=== PATIENT | male | born 1945 | race Caucasian/White ===

== ENCOUNTER 2016-07-18 14:11 | Emergency (ER) | payer MEDICARE ==
[~2016-07-18] VITALS: Ht 170.2 cm; Wt 97.5 kg
[2016-07-18] MEDS ORDERED: LISI2.5T3 PO (14:26)
[2016-07-18] MEDS ORDERED: LEVO137T2 PO (14:26)
[2016-07-18] MEDS ORDERED: METF1000 PO (14:26)
[2016-07-18] MEDS ORDERED: PANT40TA2 PO (14:26)
[2016-07-18] MEDS ORDERED: VYTO10TA2 PO (14:26)
[2016-07-18] MEDS ORDERED: LANTINJ4 SC (14:26)
[2016-07-18] MEDS ORDERED: HUMA100I5 SC (14:26)
[2016-07-18] MEDS ORDERED: ADACEL/BOOSTRIX VACCINE (DIPHTH/PERTUSS/ACELL/TETANUS)0.5ML SYR (90715) IM ONE (16:00)
[2016-07-18] MEDS ORDERED: LIDOCAINE 2% MDV 20 ML VIAL SC ONE (16:00)
--- NOTE | 2016-07-18 16:34 | REP ---
Clinical: Trauma. Technique: AP, lateral, bilateral oblique views of the left fourth digit. Findings: Laceration and partial amputation of the tissues at the terminal tuft noted. No subcutaneous emphysema or radiodense foreign body. The osseous structures and joint spaces appear intact. Impression: Soft tissue injury. Osseous structures appear intact. Signed by Matti Alves MD 07/18/2016 04:23 P
[2016-07-18] MEDS ORDERED: KEFL500C7 PO (17:19)
[2016-07-18 17:24] VITALS: BP 115/57
== END 2016-07-18 17:35 | disposition home or self-care (01) ==
LOC: M ED 15:20
DX: S61.315A Laceration without foreign body of left ring finger with damage to nail, initial encounter (principal); S61.217A Laceration without foreign body of left little finger without damage to nail, initial encounter; X58.XXXA Exposure to other specified factors, initial encounter; Y92.9 Unspecified place or not applicable; Y93.9 Activity, unspecified; Y99.9 Unspecified external cause status; E11.9 Type 2 diabetes mellitus without complications; I10 Essential (primary) hypertension; Z87.891 Personal history of nicotine dependence; Z79.4 Long term (current) use of insulin; Z79.84 Long term (current) use of oral hypoglycemic drugs; Z79.899 Other long term (current) drug therapy

== ENCOUNTER → 2017-10-20 | Outpatient (CLI) | payer MEDICARE | LOC: M RAD 08:04 | DX: H92.22 Otorrhagia, left ear (principal) | CPT/HCPCS: 70480 ==

== ENCOUNTER 2017-10-23 06:10 | Day surgery (SDC) | payer MEDICARE ==
[2017-10-23] MEDS: LR 1,000 ML IV (06:56)
[2017-10-23] MEDS ORDERED: PROPOFOL 200 MG/20 ML VIAL As Ordered ×2 (07:14→07:17)
[2017-10-23] MEDS ORDERED: fentaNYL 100 MCG/2 ML INJECTION (J3010) As Ordered (07:15)
[2017-10-23] MEDS ORDERED: MIDAZOLAM INJ 2 MG/2 ML VIAL (J2250) As Ordered (07:15)
[2017-10-23 07:18] LABS: BEDSIDE GLUCOSE 132 MG/DL (83-110)
[2017-10-23] MEDS ORDERED: ONDANSETRON 4MG/2ML VIAL (J2405) As Ordered (08:03)
[2017-10-23] MEDS: LIDOCAINE W/EPINEPHRINE 1% 20ML VIAL As Ordered (08:15)
[2017-10-23] MEDS: dexameTHASONE 4 MG/ML 1ML VIAL (J1100) IV (08:33)
== END 2017-10-23 09:40 | disposition home or self-care (01) ==
LOC: M SDC 06:10
DX: C44.41 Basal cell carcinoma of skin of scalp and neck (principal); E78.00 Pure hypercholesterolemia, unspecified; I10 Essential (primary) hypertension; E03.9 Hypothyroidism, unspecified; E10.9 Type 1 diabetes mellitus without complications; K21.9 Gastro-esophageal reflux disease without esophagitis; Z87.891 Personal history of nicotine dependence; Z79.899 Other long term (current) drug therapy; Z79.4 Long term (current) use of insulin; Z79.84 Long term (current) use of oral hypoglycemic drugs; Z79.82 Long term (current) use of aspirin; Z96.1 Presence of intraocular lens; Z86.19 Personal history of other infectious and parasitic diseases
CPT/HCPCS: 11623

== ENCOUNTER → 2018-01-10 | Outpatient (CLI) | payer MEDICARE | LOC: M RAD 10:16 | DX: I65.23 Occlusion and stenosis of bilateral carotid arteries (principal) | CPT/HCPCS: 93880 ==

== ENCOUNTER 2018-02-02 05:54 | Emergency (ER) | payer MEDICARE ==
[2018-02-02 06:27] LABS: BASO % 0.7 % (0.0-1.0); EOS # 0.1 10^3/uL (0.0-0.50); EOS % 3.2 % (0.0-3.0); HEMATOCRIT 37.4 % (42.0-52.0); HEMOGLOBIN 11.5 g/dl (13.5-17.5); IMMATURE GRANULOCYTE % 0.4 % (0-3.0); LYMPH # 0.8 10^3/uL (1.5-4.5); LYMPH % 29.6 % (24.0-44.0); MEAN CORPUSCULAR HGB CONC 30.7 g/dl (32.0-36.5); MEAN CORPUSCULAR VOLUME 74.9 fl (80.0-96.0); MONO # 0.4 10^3/uL (0.0-0.8); MONO % 13.4 % (0.0-5.0); NEUTROPHILS # 1.5 10^3/uL (1.8-7.7); NEUTROPHILS % 52.7 % (36.0-66.0); RED BLOOD COUNT 4.99 10^6/uL (4.30-6.10); RED CELL DISTRIBUTION WIDTH 17.9 % (11.5-14.5); WHITE BLOOD COUNT 2.8 10^3/uL (4.0-10.0)
[2018-02-02 06:39] LABS: INR 1.24; PROTHROMBIN TIME 15.8 SECONDS (12.1-14.4)
[2018-02-02 06:40] LABS: PARTIAL THROMBOPLASTIN TIME 38.5 SECONDS (25.4-37.6)
[2018-02-02 06:51] LABS: PLATELET COUNT, AUTOMATED 72 10^3/uL (150-450)
[2018-02-02] MEDS: ASPIRIN 325 MG TAB PO (06:52)
[2018-02-02] MEDS: NITROGLYCERIN 2% OINT 1 GM *U/D* PKT TOP (06:53)
[2018-02-02 06:54] LABS: ABG BASE EXCESS -4.1 (-2.0-2.0); ABG HCO3 19.4 MEQ/L (22.0-26.0); ABG O2 SATURATION 96.8 % (95.0-99.0); ABG PARTIAL PRESSURE CO2 30.7 mmHg (35.0-45.0); ABG PARTIAL PRESSURE O2 87.5 mmHg (75.0-100.0); ABG TOTAL CO2 20.3 MEQ/L (23.0-31.0); ABG pH (ARTERIAL) 7.418 UNITS (7.350-7.450)
[2018-02-02 06:57] LABS: ANION GAP 11 MEQ/L (8-16); BLOOD UREA NITROGEN 15 MG/DL (7-18); CALCIUM LEVEL 8.7 MG/DL (8.8-10.2); CARBON DIOXIDE LEVEL 22 MEQ/L (21-32); CHLORIDE LEVEL 104 MEQ/L (98-107); CPK CREATINE PHOSPHOKINASE 365 U/L (39-308); CREATININE FOR GFR 1.09 MG/DL (0.70-1.30); GLOMERULAR FILTRATION RATE > 60.0 (>42); GLUCOSE, FASTING 273 MG/DL (70-100); MB/CK RELATIVE INDEX 2.82 (< OR =4); NT-PRO BNP 294 PG/ML (<125); SODIUM LEVEL 137 MEQ/L (136-145); TROPONIN I 0.76 NG/ML (< 0.10)
[2018-02-02] MEDS ORDERED: ISOVUE-370 76% 100ML VIAL (Q9967) As Ordered (07:25)
[2018-02-02 08:43] LABS: CPK CREATINE PHOSPHOKINASE 327 U/L (39-308); MB/CK RELATIVE INDEX 2.84 (< OR =4); TROPONIN I 0.68 NG/ML (< 0.10)
[2018-02-02] MEDS: CLOPIDOGREL 300 MG TAB (PLAVIX) PO (09:35)
[2018-02-02] MEDS: HEPARIN SOD (PORCINE) 5000 UNITS/ML VIAL IV (09:36)
[2018-02-02] MEDS: HEPARIN DRIP 25,000 UNITS in APPROPRIATE DILUENT 1 EA IV (09:38)
== END 2018-02-02 10:07 | disposition short-term general hospital (02) ==
LOC: M ED 05:54
DX: R06.02 Shortness of breath (principal); I24.9 Acute ischemic heart disease, unspecified; R59.9 Enlarged lymph nodes, unspecified; E11.9 Type 2 diabetes mellitus without complications; I10 Essential (primary) hypertension; K21.9 Gastro-esophageal reflux disease without esophagitis; E03.9 Hypothyroidism, unspecified; E66.9 Obesity, unspecified; Z87.891 Personal history of nicotine dependence; Z82.49 Family history of ischemic heart disease and other diseases of the circulatory system; Z79.82 Long term (current) use of aspirin; Z79.4 Long term (current) use of insulin; Z79.899 Other long term (current) drug therapy; Z88.8 Allergy status to other drugs, medicaments and biological substances
CPT/HCPCS: Q9967

== ENCOUNTER → 2018-03-11 | Outpatient (CLI) | payer MEDICARE ==
[~2018-03-11] MED LIST: ASPI1TAB PO; HUMA100I5 SC; KEFL500C17 PO; LANTINJ4 SC; LEVO137T2 PO; LISI2.5T5 PO; MAGN400C PO; METF10004 PO; PANT40TA3 PO; VITA100067 PO; VYTO10TA25 PO
--- NOTE | 2018-03-12 07:46 | REP ---
Duplex extremity venous ultrasound: Right lower extremity. History: Right leg swelling. Edema. Findings: The deep veins are anechoic and fully compressible from the groin to the popliteal fossa in the right lower extremity. Color flow imaging is homogeneous. Spectral Doppler interrogation demonstrates intact respiratory variation in flow and normal manual augmentation of flow. There is no evidence of deep vein thrombosis. Impression: Negative right lower extremity duplex venous ultrasound. No evidence of deep vein thrombosis. Electronically Signed by Chaz Howard MD 03/11/2018 03:39 P
== END ==
LOC: M RAD 14:56
PROVIDERS: ATTEND Nurse Practitioner
DX: M79.604 Pain in right leg (principal)

== ENCOUNTER → 2018-03-14 | Outpatient (REF) | payer MEDICARE ==
[~2018-03-14] MED LIST changes: +FOLI1TAB11 PO; +LASI20TA3 PO
[2018-03-14 15:48] LABS: BLOOD UREA NITROGEN 12 MG/DL (7-18); CALCIUM LEVEL 8.4 MG/DL (8.8-10.2); CARBON DIOXIDE LEVEL 27 MEQ/L (21-32); CHLORIDE LEVEL 105 MEQ/L (98-107); CREATININE FOR GFR 0.89 MG/DL (0.70-1.30); GLOMERULAR FILTRATION RATE > 60.0 (>42); GLUCOSE, FASTING 75 MG/DL (70-100); POTASSIUM SERUM 3.9 MEQ/L (3.5-5.1); SODIUM LEVEL 140 MEQ/L (136-145)
== END ==
LOC: M SHH 14:36
PROVIDERS: ATTEND Nurse Practitioner
DX: I25.10 Atherosclerotic heart disease of native coronary artery without angina pectoris (principal)

== ENCOUNTER 2018-04-10 14:49 | Inpatient (IN) | payer MEDICARE ==
[2018-04-10] VITALS (14 sets, daily range): BP systolic 87–108; BP diastolic 52–66
[~2018-04-10] VITALS: Ht 170.2 cm; Wt 102.8 kg
[~2018-04-10 14:49] MED LIST changes: -FOLI1TAB11 PO; -LASI20TA3 PO
[2018-04-10] MEDS ORDERED: ONDANSETRON 4MG/2ML VIAL (J2405) As Ordered ONE (15:00)
[2018-04-10] MEDS ORDERED: ACETAMINOPHEN 325 MG TAB PO ONE (15:15)
[2018-04-10] MEDS ORDERED: cefTRIAXone SOD 2 GM in D5W MINI-BAG PLUS 50 ML IV ONE (15:15)
[2018-04-10 15:20] LABS: BASO % 0.2 % (0.0-1.0); EOS # 0.1 10^3/uL (0.0-0.50); EOS % 0.8 % (0.0-3.0); HEMATOCRIT 42.5 % (42.0-52.0); LYMPH # 1.5 10^3/uL (1.5-4.5); LYMPH % 11.6 % (24.0-44.0); MEAN CORPUSCULAR HEMOGLOBIN 24.8 pg (27.0-33.0); MEAN CORPUSCULAR HGB CONC 30.6 g/dl (32.0-36.5); MEAN CORPUSCULAR VOLUME 81.1 fl (80.0-96.0); MONO # 0.5 10^3/uL (0.0-0.8); NEUTROPHILS # 11.1 10^3/uL (1.8-7.7); PLATELET COUNT, AUTOMATED 177 10^3/uL (150-450); RED BLOOD COUNT 5.24 10^6/uL (4.30-6.10); WHITE BLOOD COUNT 13.3 10^3/uL (4.0-10.0)
[2018-04-10] MEDS ORDERED: METOCLOPRAMIDE INJ 10MG/2ML VIAL (J2765) As Ordered ONE (15:27)
[2018-04-10] MEDS ORDERED: NS 2,860 ML in APPROPRIATE DILUENT 1 EA IV ONE (15:30)
[2018-04-10] MEDS ORDERED: METOCLOPRAMIDE INJ 10MG/2ML VIAL (J2765) IV ONE (15:30)
[2018-04-10 15:33] LABS: INR 1.23; PROTHROMBIN TIME 15.7 SECONDS (12.1-14.4)
[2018-04-10 15:56] LABS: ALBUMIN 3.5 GM/DL (3.2-5.2); ALT/SGPT 35 U/L (12-78); BILIRUBIN,DIRECT 0.7 MG/DL (0.0-0.2); BILIRUBIN,TOTAL 1.7 MG/DL (0.2-1.0); BLOOD UREA NITROGEN 14 MG/DL (7-18); CALCIUM LEVEL 9.2 MG/DL (8.8-10.2); CARBON DIOXIDE LEVEL 24 MEQ/L (21-32); CHLORIDE LEVEL 100 MEQ/L (98-107); CPK CREATINE PHOSPHOKINASE 102 U/L (39-308); CREATININE FOR GFR 1.23 MG/DL (0.70-1.30); GLOMERULAR FILTRATION RATE > 60.0 (>42); GLUCOSE, FASTING 181 MG/DL (70-100); LIPASE 214 U/L (73-393); MB/CK RELATIVE INDEX 3.14 (< OR =4); NT-PRO BNP 419 PG/ML (<125); POTASSIUM SERUM 3.9 MEQ/L (3.5-5.1); SODIUM LEVEL 138 MEQ/L (136-145); TOTAL PROTEIN 7.3 GM/DL (6.4-8.2); TROPONIN I 0.02 NG/ML (< 0.10)
[2018-04-10] MEDS ORDERED: ISOVUE-370 76% 100ML VIAL (Q9967) As Ordered ONE (16:15)
[2018-04-10 16:21] LABS: INFLUENZA A AMPLIFICATION NEGATIVE (NEGATIVE); INFLUENZA B AMPLIFICATION NEGATIVE (NEGATIVE)
[2018-04-10] MEDS ORDERED: ONDANSETRON 4MG/2ML VIAL (J2405) IV ONE (17:00)
--- NOTE | 2018-04-10 17:04 | REP ---
PORTABLE CHEST: AP portable view of the chest was performed and compared to prior studies most recent of which is 02/02/2018. Cardiac silhouette is mildly prominent. Mediastinal silhouette is unchanged. There are mildly prominent interstitial markings in the lung bases which are chronic in nature. There is mild chronic elevation of the left hemidiaphragm. IMPRESSION: Stable chronic findings without evidence of acute infiltrate. Electronically Signed by Garrett Salgado MD 04/10/2018 08:19 P
--- NOTE | 2018-04-10 17:18 | REP ---
CT of the abdomen and pelvis with IV contrast, without bowel contrast: Comparison 08/26/2010. The visualized lower lung maya are unremarkable. The hepatic parenchyma is unremarkable. The gallbladder is unremarkable. There is enhancing three-point 6 cm mass in the left lobe of the liver. This is not present on the chest CT performed in a prior to this abdomen CT, and is not present on the comparison study and is not present on the chest CT dated 02/02/2018. A followup ultrasound and / or MRI are recommended for further evaluation. The gallbladder, pancreas and spleen are unremarkable. There are numerous retrogastric mesenteric nodes, unchanged from 02/07/2019 but not present on 08/26/2010. There are a few scattered normal size mesenteric nodes, not significantly changed from 08/26/2010. There is no pneumoperitoneum. There is no ascites. The pancreas and spleen are unremarkable. The adrenals and kidneys are unremarkable. Abdominal aorta is unremarkable. There is no retroperitoneal adenopathy. There is no bowel distension or obstruction. Pelvis: The appendix is unremarkable. There is no ascites or adenopathy. The pelvic bowel loops are unremarkable. Impression: There is an enhancing 3.6 cm liver mass, not identified on the studies earlier today or prior studies. Recommend follow-up ultrasound and MRI. There is retrogastric adenopathy, unchanged from 04/05 2017. No pneumoperitoneum or ascites. Electronically Signed by Garrett Argueta MD 04/10/2018 05:09 P
[2018-04-10] MEDS ORDERED: NOREPINEPHRINE 4 MG/4 ML AMP As Ordered ONE (17:19)
--- NOTE | 2018-04-10 17:22 | ECGEPIP ---
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
[2018-04-10] MEDS ORDERED: NOREPINEPHRINE BITARTRATE 8 MG in D5W 492 ML IV SCH (17:30)
[2018-04-10] MEDS ORDERED: FOLI1TAB11 PO (18:26)
[2018-04-10] MEDS ORDERED: LASI20TA3 PO (18:26)
[2018-04-10 18:41] LABS: MB/CK RELATIVE INDEX 2.12 (< OR =4); TROPONIN I 0.06 NG/ML (< 0.10)
--- NOTE | 2018-04-10 18:43 | REP ---
PORTABLE CHEST: AP portable view of the chest was performed and compared to prior study of the same date. There has been placement of a right central venous catheter with the tip in the superior vena cava. There is no pneumothorax. There are no other acute findings with no change since prior study. Electronically Signed by Garrett Salgado MD 04/10/2018 08:21 P
[2018-04-10] MEDS ORDERED: ONDANSETRON 4 MG TAB (S0181) PO PRN (18:45)
[2018-04-10] MEDS ORDERED: ACETAMINOPHEN TAB 650MG DOSE (2X325MG) PO PRN (18:45)
[2018-04-10] MEDS ORDERED: VANCOMYCIN HCL 750 MG, VIAL MATE ADAPTER 1 EACH in D5W 250 ML IV SCH (19:45)
[2018-04-10] MEDS ORDERED: GLUCAGON FOR INJ 1 MG VIAL (J1610) SC PRN (20:00)
[2018-04-10] MEDS ORDERED: GLUCOSE 4 GM CHEW TABLET PO PRN (20:00)
[2018-04-10] MEDS ORDERED: PERCOCET 5MG/325MG TAB PO ONE (20:00)
[2018-04-10] MEDS ORDERED: DEXTROSE 50% 50 ML SYRINGE IV PRN (20:00)
[2018-04-10] MEDS: PIPERACILLIN/TAZOBACTAM SOD 3.375 GM in D5W MINI-BAG PLUS 50 ML IV SCH (20:08)
[2018-04-10 20:22] LABS: FREE T4 1.84 NG/DL (0.76-1.46)
--- NOTE | 2018-04-10 20:28 | PHACANCOPD ---
PHARMACY VANCOMYCIN DOSING Pt Demographics Demographics Patient Age:73 , Weight:96.500 , Gender: male Adjusted Body Weight Vancomycin Vancomycin indication: SEPSIS Vancomycin Target Ranges: 15-20 mcg/ml Vancomycin Load Y/N: Yes Load Dose Date Time Vancomycin Load Dose: 2GM Date: 04/10/18 Time: 21:00 Vancomycin Dose Date: 04/11/18. Current Vancomycin Dose: [1GM IV Q12H (6am start)] Intermittent Dosing?: No Labs Labs Laboratory Tests 04/10/18 15:04 Red Blood Count 5.24, Mean Corpuscular Volume 81.1, Mean Corpuscular Hemoglobin 24.8 L, Mean Corpuscular Hemoglobin Concent 30.6 L, Red Cell Distribution Width 18.3 H, Neutrophils (%) (Auto) 83.0 H, Lymphocytes (%) (Auto) 11.6 L, Monocytes (%) (Auto) 4.0, Eosinophils (%) (Auto) 0.8, Basophils (%) (Auto) 0.2, Neutrophils # (Auto) 11.1 H, Lymphocytes # (Auto) 1.5, Monocytes # (Auto) 0.5, Eosinophils # (Auto) 0.1, Basophils # (Auto) 0.0 Micro Microbiology 04/10/18 Blood Culture, Received Pending 04/10/18 Blood Culture, Received Pending 04/10/18 Respiratory Virus Panel (PCR) (KATHERIN) - Final, Complete Creatinine Clearance Date:04/10/18. Creatinine Clearance: [ >50 ml/min]. Assessment and Plan Maintaining Current Dose?: Yes Reason for dose change: No Dose Change Pharmacist Note Pharmacist Note Date: 04/10/18. PharmD note: VANCO 2GM LOAD AT 21:00; followed by VANCO 1GM IV Q12H (06:00 04/11/18). GOAL 15-20 PER ATTENDING SERVICE. MORIS TR WHEN [facility] Apr 10, 2018 20:27
[2018-04-10] MEDS ORDERED: NS 1,000 ML IV ONE (20:30)
[2018-04-10] MEDS ORDERED: MAG SULF 1GM/100ML (MAG RUN) 1 GM in APPROPRIATE DILUENT 1 EA IV ONE (20:30)
[2018-04-10] MEDS ORDERED: VANCOMYCIN HCL 1,000 MG, VIAL MATE ADAPTER 1 EACH in D5W 250 ML IV ONE ×2 (21:00→22:00)
[2018-04-10] MEDS ORDERED: HumaLOG INSULIN (NovoLOG) PER UNIT SC SCH (21:00)
--- NOTE | 2018-04-10 22:23 | RO ---
DATE OF PROCEDURE: 04/10/2018 PREPROCEDURE DIAGNOSIS: Hypotension. POSTPROCEDURE DIAGNOSIS: Hypotension. PROCEDURE PERFORMED: Right IJ triple lumen central line. PHYSICIAN PERFORMING PROCEDURE: Huma Ramirez MD ENGRAVER HAND SOFT METALS: Areli Feliciano MD SEDATION: None. ANESTHETIC: 1% local lidocaine. VENTILATION: 2% nasal cannula. ESTIMATED BLOOD LOSS: 10 mL DESCRIPTION OF PROCEDURE: Consent was obtained. Risks and benefits explained. Time out was done. Patient was placed in the supine position. The right side of the patient's neck was cleaned with Chloraprep. Patient was covered in the usual manner. Ultrasound probe with sterile probe cover was used. Patient's right internal jugular was located and subsequently 1% local lidocaine was injected with ultrasound guidance and subsequently introducer needle was inserted with ultrasound guidance and flash of blood return was obtained. Guidewire was inserted through the introducer needle. Introducer needle was removed. Guidewire position was confirmed with ultrasound. Subsequently site was dilated and triple lumen central line was inserted over guidewire via Seldinger technique. Guidewire was removed. All three ports of the triple lumen central line was flushed and clamped and line was secured with stitches. Dressing was placed. Patient tolerated the procedure with no complication. X-ray was ordered for confirmation.
[2018-04-10 23:28] LABS: MAGNESIUM LEVEL 1.5 MG/DL (1.8-2.4)
[2018-04-10] MEDS ORDERED: MORPHINE 4 MG/ML 1ML VIAL/SYRINGE (J2270) IV PRN (23:30)
[2018-04-11] VITALS (113 sets, daily range): BP systolic 79–154; BP diastolic 43–83
[2018-04-11] MEDS: NOREPINEPHRINE BITARTRATE 8 MG in D5W 492 ML IV SCH ×3 (00:01→15:00)
[2018-04-11] MEDS ORDERED: NS 1,000 ML IV SCH ×2 (00:30→03:15)
[2018-04-11] MEDS ORDERED: METOCLOPRAMIDE INJ 10MG/2ML VIAL (J2765) IV PRN (01:00)
[2018-04-11 01:52] LABS: MB/CK RELATIVE INDEX 2.33 (< OR =4); TROPONIN I 0.56 NG/ML (< 0.10)
[2018-04-11] MEDS ORDERED: NS 1,000 ML IV ONE (02:00)
[2018-04-11] MEDS: PIPERACILLIN/TAZOBACTAM SOD 3.375 GM in D5W MINI-BAG PLUS 50 ML IV SCH ×4 (02:00→19:55)
[2018-04-11] MEDS ORDERED: NITROGLYCERIN 0.3 MG SUBL TAB SL STA (02:13)
[2018-04-11] MEDS ORDERED: NITROGLYCERIN 0.4 MG SUBL TABLET SL STA (02:19)
[2018-04-11] MEDS ORDERED: METOPROLOL 5 MG/5 ML VIAL IV SCH (02:30)
[2018-04-11] MEDS ORDERED: MORPHINE 4 MG/ML 1ML VIAL/SYRINGE (J2270) IV ONE (02:30)
[2018-04-11] MEDS ORDERED: LABETALOL HCL 100 MG/20 ML VIAL As Ordered ONE (02:31)
[2018-04-11] MEDS ORDERED: METOPROLOL 5 MG/5 ML VIAL As Ordered ONE (02:35)
[2018-04-11] MEDS ORDERED: FUROSEMIDE 40 MG/4 ML VIAL (J1940) IV ONE (02:45)
[2018-04-11] MEDS ORDERED: ASPIRIN 81 MG CHEW TABLET PO ONE (02:45)
[2018-04-11] MEDS ORDERED: NITROGLYCERIN 0.4 MG SUBL TABLET SL PRN (03:00)
--- NOTE | 2018-04-11 03:39 | REPVR ---
EXAM: XR Chest, 1 View EXAM DATE/TIME: 04/11/2018 2:26 AM CLINICAL HISTORY: 73 years old, male; Signs and symptoms; Shortness of breath; Additional info: SOB TECHNIQUE: XR of the chest, 1 view. COMPARISON: CR Chest, 1 view 04/10/2018 5:57 PM FINDINGS: Tubes, catheters and devices: Right IJ line is terminating in the distal SVC in good position. Lungs: Low lung volumes. Pleural space: Unremarkable. No pleural effusion. No pneumothorax. Heart/Mediastinum: Cardiomegaly. Bones/joints: Degenerative changes. IMPRESSION: No acute finding. Electronically signed by: Fany Juarez On 04/11/2018 03:38:57 AM
[2018-04-11 03:55] LABS: ABG BASE EXCESS -22.3 (-2.0-2.0); ABG HCO3 4.1 MEQ/L (22.0-26.0); ABG O2 SATURATION 98.4 % (95.0-99.0); ABG PARTIAL PRESSURE O2 138.3 mmHg (75.0-100.0); ABG STANDARD HCO3 8.9 MEQ/L (22.0-26.0); ABG TOTAL CO2 4.4 MEQ/L (23.0-31.0); ABG pH (ARTERIAL) 7.148 UNITS (7.350-7.450)
[2018-04-11] MEDS ORDERED: SODIUM BICARBONATE 8.4% INJ 50 ML SYRINGE IV STA ×2 (04:06→08:08)
[2018-04-11] MEDS ORDERED: SODIUM BICARBONATE 150 MEQ in NS 1,000 ML IV SCH (04:15)
[2018-04-11 04:36] LABS: HEMATOCRIT 47.3 % (42.0-52.0); HEMOGLOBIN 13.8 g/dl (13.5-17.5); MEAN CORPUSCULAR HEMOGLOBIN 24.6 pg (27.0-33.0); MEAN CORPUSCULAR HGB CONC 29.2 g/dl (32.0-36.5); MEAN CORPUSCULAR VOLUME 84.3 fl (80.0-96.0); PLATELET COUNT, AUTOMATED 175 10^3/uL (150-450); RED BLOOD COUNT 5.61 10^6/uL (4.30-6.10)
[2018-04-11] MEDS ORDERED: MORPHINE 4 MG/ML 1ML VIAL/SYRINGE (J2270) IV PRN (04:45)
[2018-04-11 05:02] LABS: ALBUMIN 2.9 GM/DL (3.2-5.2); ALT/SGPT 259 U/L (12-78); BILIRUBIN,DIRECT 1.9 MG/DL (0.0-0.2); BILIRUBIN,TOTAL 2.7 MG/DL (0.2-1.0); BLOOD UREA NITROGEN 21 MG/DL (7-18); CALCIUM LEVEL 7.7 MG/DL (8.8-10.2); CARBON DIOXIDE LEVEL 9 MEQ/L (21-32); CHLORIDE LEVEL 100 MEQ/L (98-107); CREATININE FOR GFR 2.01 MG/DL (0.70-1.30); GLUCOSE, FASTING 188 MG/DL (70-100); POTASSIUM RANDOM URINE 71.4 MEQ/L; POTASSIUM SERUM 5.7 MEQ/L (3.5-5.1); SODIUM LEVEL 134 MEQ/L (136-145); TOTAL PROTEIN 6.2 GM/DL (6.4-8.2); WHITE BLOOD COUNT 36.6 10^3/uL (4.0-10.0)
[2018-04-11] MEDS ORDERED: ANGIOTENSIN II ACETATE 2.5 MG in NS 499 ML IV SCH (05:30)
--- NOTE | 2018-04-11 05:51 | ECGEPIP ---
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
[2018-04-11] MEDS ORDERED: VANCOMYCIN HCL 1,000 MG, VIAL MATE ADAPTER 1 EACH in D5W 250 ML IV SCH ×2 (06:00→18:00)
[2018-04-11] MEDS: LEVOTHYROXINE 137MCG TABLET (0.137MG) PO SCH (06:00)
[2018-04-11] MEDS ORDERED: ETOMIDATE INJ 20MG/10ML VIAL As Ordered ONE (06:15)
[2018-04-11] MEDS ORDERED: SODIUM BICARBONATE 8.4% INJ 50 ML SYRINGE As Ordered ONE (06:15)
[2018-04-11] MEDS ORDERED: MIDAZOLAM INJ 2 MG/2 ML VIAL (J2250) As Ordered ONE (06:20)
[2018-04-11] MEDS ORDERED: PROPOFOL 1,000 MG/100 ML VIAL As Ordered ONE (06:39)
[2018-04-11 06:56] LABS: ALBUMIN 2.8 GM/DL (3.2-5.2); BILIRUBIN,TOTAL 2.5 MG/DL (0.2-1.0); CALCIUM LEVEL 8.1 MG/DL (8.8-10.2); CREATININE FOR GFR 2.1 MG/DL (0.70-1.30); GLOMERULAR FILTRATION RATE 33.3 (>42); MB/CK RELATIVE INDEX 2.36 (< OR =4); TOTAL PROTEIN 6.2 GM/DL (6.4-8.2); TROPONIN I 1.22 NG/ML (< 0.10)
--- NOTE | 2018-04-11 07:23 | REP ---
CT of the chest with IV contrast, CT pulmonary angiography protocol: Comparison is 02/02/2018. There are no emboli in the pulmonary trunk or central pulmonary arteries. There are no emboli in the pulmonary lobe or segment branches. There are no infiltrates or effusions. There are no masses or nodules. There is no mediastinal adenopathy. There are a few normal-size nodes. There is no hilar lymph node enlargement. No axillary lymph node enlargement. The thoracic aorta is unremarkable. Cardiac size is normal. Upper abdomen: There are numerous retrogastric lymph nodes, similar to the prior study. Impression: No pulmonary emboli. No infiltrate or effusion. No masses or nodules. Multiple mesenteric retrogastric nodes in the upper abdomen, similar to the comparison study. Electronically Signed by Garrett Argueta MD 04/10/2018 04:48 P
[2018-04-11] MEDS ORDERED: HumaLOG INSULIN (NovoLOG) PER UNIT SC SCH (07:30)
[2018-04-11] MEDS ORDERED: HEPARIN 1,000 UNITS/ML 10ML VIAL (FOR RADIOLOGY& DIALYSIS ONLY) IV ONE (07:30)
[2018-04-11] MEDS: SODIUM BICARBONATE 150 MEQ in D5W 1,000 ML IV SCH ×2 (07:58→14:53)
[2018-04-11] MEDS ORDERED: MIDAZOLAM INJ 2 MG/2 ML VIAL (J2250) IV STA (08:08)
[2018-04-11] MEDS ORDERED: ETOMIDATE INJ 20MG/10ML VIAL IV ONE (08:15)
--- NOTE | 2018-04-11 08:21 | IPN ---
DATE OF SERVICE: 04/11/2018 SUBJECTIVE: I was called urgently to the intensive care unit (ICU) to the bedside with Mr. Collado who was having shortness of breath after using the commode. He says he felt like he could not catch his breath and he had pain in his back between the shoulder blades bilaterally. He was a little tachypneic and tachycardiac as well and he was starting to feel dizzy as well. He does not have any nausea, vomiting, diarrhea. He is not feeling any fevers or chills. He states that his shortness of breath does not feel like chest pain, he does not have any palpitations or pressing chest pressure. He does have a sharp pain between his shoulder blades in his back. Apparently he was admitted for sepsis, source unknown. He is on Levophed and came up to the unit on 30 mcg. He is now on 15 mcg, being titrated up to 20 mcg. OBJECTIVE: Vitals: Heart rate 119, 96% on room air. Blood pressure 88/61 with a map of 65. General: Elderly male in moderate distress. Lungs: Clear to auscultation bilaterally. No wheezes, rhonchi or rales. Heart: Tachycardiac rate but with irregular rhythm. I do not appreciate any murmurs, gallops or rubs. Pulses: Good peripheral pulses bilaterally. Extremities: No clubbing, cyanosis or edema is noted. LABORATORY DATA: Lactic acid at 0115 hours was 12.2, repeat at 0204 hours was 13.5. Cardiac markers: Troponin at 0115 hours was 0.56 up from 0.06 at 1756 hours yesterday. CK-MB 6.0, up from 2.0 yesterday at 1756 hours. EKG done at bedside showed sinus tachycardia at about 120 beats per minute with a left axis deviation. This is similar to EKG done yesterday in the ER, no ST elevation is noted, all wave forms and all leads look similar to yesterday's EKG. IMAGING STUDIES: Portable chest x-ray done at bedside was compared to patient's portable chest from yesterday. The airway is straight without deviation. Bony structures appear to be intact. Cardiac silhouette looks mildly enlarged, however, the patient also does have poor inspiratory effort. The diaphragmatic angles are clear. There is a central line in place that is unchanged from 04/10/2018. EKG leads are in place. Pulmonary vasculature looks similar to an x-ray of 04/10/2018. ASSESSMENT: 73-year-old male in acute mild distress with shortness of breath. He was admitted with hypotension and sepsis secondary to an unknown cause. He was feeling dizzy and had pain in his back. 1. Shortness of breath and dizziness. Possibly from hypertension. There is no changes on EKG and troponins are only mildly elevated. I have ordered another cardiac injury panel so we can trend. With the patient's most recent cardiac history, a double bypass and heart attack in the beginning of January, I did administer nitroglycerine, oxygen, morphine and aspirin 324 mg once. Portable chest x-ray looked similar to the one taken yesterday. Electrocardiogram did not show any changes. I am ordering an echocardiogram for the morning. 2. Lactic acidosis. This could be from multiple things. Apparently the patient was recently diagnosed with liver cancer, so that would impair lactate clearance. He also is on metformin at home, and received a CT angio with contrast today, which can cause lactic acidosis. His creatinine yesterday in the ER was 1.23, so I would expect that he would have an increased creatinine in this morning's labs. I will be doing an ABG to check his acid/base status. He may need a nephrology consult for acute renal failure, probably contrast-induced nephropathy, and possible ATN. After intervention, patient seems a bit more comfortable. He has had decreased work of breathing and is no longer complaining of 10 out of 10 pain in his back. However his ABG showed significant acidosis, with a pCO2 of 12 and a bicarb of 4, so I consulted Dr. Childs of Critical Care Pulmonology and Dr. Elyse Smith of nephrology. My faculty preceptor for this patient encounter was physically present during the encounter and was fully available. All aspects of the patient interview, examination, medical decision making process, and medical care plan development were reviewed and approved by the faculty preceptor. The faculty preceptor is aware and concurs with the plan as stated in the body of this note and will attest to such by his/her cosignature. PAULINO
[2018-04-11 08:44] LABS: VANCOMYCIN RANDOM 20.5 UG/ML
[2018-04-11 08:44] LABS: ABG HCO3 5.9 MEQ/L (22.0-26.0); ABG O2 SATURATION 98.7 % (95.0-99.0); ABG PARTIAL PRESSURE O2 146.9 mmHg (75.0-100.0); ABG STANDARD HCO3 9.7 MEQ/L (22.0-26.0); ABG TOTAL CO2 6.4 MEQ/L (23.0-31.0)
[2018-04-11 08:47] LABS: ABG PARTIAL PRESSURE CO2 17.7 mmHg (35.0-45.0); ABG pH (ARTERIAL) 7.138 UNITS (7.350-7.450)
--- NOTE | 2018-04-11 08:50 | REP ---
Portable chest, a 18 a.m., single AP view, the patient semi upright: Comparison is from 02:23 a.m. earlier today. The patient is rotated. There has been interval placement of an endotracheal tube. The tip is at the level of the aortic arch above the roselyn. There has been interval placement of a nasogastric tube. The tube terminates in the abdominal left upper quadrant. There is a right IJ central venous catheter with the tip at the confluence of the vena cava and right atrium, unchanged. No pneumothorax. Lung maya are clear. Cardiac size is enlarged, unchanged. Impression: Lines and tubes as described. Cardiomegaly, unchanged. Lung maya are clear. Electronically Signed by Garrett Argueta MD 04/11/2018 08:41 A
[2018-04-11] MEDS ORDERED: ENOXAPARIN 40 MG/0.4 ML SYRINGE (J1650) SC SCH (09:00)
[2018-04-11] MEDS ORDERED: PANTOPRAZOLE 40MG TAB (PROTONIX) PO SCH (09:00)
[2018-04-11] MEDS: CHLORHEXIDINE GLUCONATE 0.12 % 15ML UDC (PERIDEX ORAL RINSE) MT SCH ×2 (09:00→21:00)
[2018-04-11] MEDS: HumaLOG INSULIN (NovoLOG) PER UNIT SC SCH ×4 (09:00→21:00)
[2018-04-11] MEDS: ASPIRIN 81 MG ENTERIC TAB PO SCH (09:00)
--- NOTE | 2018-04-11 09:14 | RO ---
DATE OF PROCEDURE: 04/11/2018 PREOPERATIVE DIAGNOSIS: Septic shock. POSTOPERATIVE DIAGNOSIS: Septic shock. PROCEDURE: Endotracheal intubation. SURGEON: Dr. Sobia Childs INDICATION: Respiratory distress. Due to the emergent nature of the procedure, consent was not obtained prior to the procedure, however, the patient was informed about intubation and he was agreeable to proceed with the procedure. DESCRIPTION OF PROCEDURE: The patient was placed on a awake overnight monitor including continuous pulse oximetry. Rapid sequence intubation was conducted. The patient received 20 mg of etomidate for induction and an additional 4 mg of Versed as well for sedation. Using a size 4 MAC laryngoscope and a size 8 endotracheal tube with stylet, the patient was intubated on the first pass attempt. The stylet was removed and the cuffed balloon was inflated. Appropriate endotracheal tube position was confirmed by direct visualization of vocal cord passage, fogging of the tube, CO2 carbometric indicator and symmetric breath sounds. The tube was secured at 24 cm at the lips. Post intubation chest x-ray is pending. There were no immediate complications post procedure. PAULINO
[2018-04-11] MEDS ORDERED: SODIUM CHLORIDE 0.9% INJ 10 ML SYR IV PRN (09:30)
--- NOTE | 2018-04-11 09:43 | RO ---
DATE OF PROCEDURE: 04/11/2018 INDICATION: Hypotension. PROCEDURE: Femoral arterial line. PROCEDURAL FEE CLERK: Torres Sarmiento, PGY-1 ATTENDING PHYSICIAN: Dr. Sobia Childs was in attendance. CONSENT: Consent was obtained from Marshall Collado prior to the procedure. Indications, risks and benefits were explained at length. PROCEDURE SUMMARY: A time out was performed. My hands were washed immediately prior to the procedure. I wore a surgical cap and mask with protective eye wear, sterile gown and sterile gloves throughout the procedure. The right inguinal region was prepped using chlorhexidine to scrub and drape in a sterile fashion using a 3/4 sheet drape. The femoral artery was identified using an ultrasound probe. Using the ultrasound probe, the introducer needle was inserted into the femoral artery. Arterial blood was withdrawn. The syringe was removed and a guide wire was advanced through the needle to the femoral artery. The needle was exchanged over the wire for an arterial catheter. The wire was removed and the catheter was secured to the skin using a suture. The patient was intubated and sedated throughout the entirety of the procedure and was on pressors. There was no hemodynamic compromise. At the time of the procedural completion, the catheter was connected to the hospital monitor and calibrated. Appropriate waveform and blood pressure tracing was observed. Estimated blood loss was 1-2 mL. The line site was cleaned and covered in impregnated chlorhexidine dressing. PAULINO
[2018-04-11 09:58] LABS: IONIZED CALCIUM 3.8 MG/DL (4.5-5.3)
[2018-04-11 10:21] LABS: LYMPHOCYTES 7 % (16-52); MONOCYTES 1 % (0-8); NEUTROPHILS 85 % (35-75)
[2018-04-11 10:22] LABS: INR 2.09; PROTHROMBIN TIME 23.9 SECONDS (12.1-14.4)
[2018-04-11 10:23] LABS: CRENATED RBC 2+; PLATELET ESTIMATE NORMAL (NORMAL)
[2018-04-11 10:23] LABS: PARTIAL THROMBOPLASTIN TIME 45.5 SECONDS (25.4-37.6)
[2018-04-11 10:24] LABS: OVALOCYTES 1+
--- NOTE | 2018-04-11 10:29 | PHACANCOPD ---
PHARMACY VANCOMYCIN DOSING Pt Demographics Demographics Patient Age:73 , Weight:96.500 , Gender: male Adjusted Body Weight Vancomycin Vancomycin indication: SEPSIS Vancomycin Target Ranges: 15-20 mcg/ml Vancomycin Load Y/N: Yes Load Dose Date Time Vancomycin Load Dose: 2GM Date: 04/10/18 Time: 21:00 Vancomycin Dose Date: 04/11/18. Current Vancomycin Dose: [1GM IV Q12H (6am start)] Intermittent Dosing?: No Labs Micro Microbiology 04/10/18 Blood Culture - Preliminary, Resulted 04/10/18 Blood Culture - Preliminary, Resulted 04/11/18 MRSA Screen, Received Pending 04/10/18 Respiratory Virus Panel (PCR) (KATHERIN) - Final, Complete Creatinine Clearance Date:04/10/18. Creatinine Clearance: [ >50 ml/min]. Assessment and Plan Maintaining Current Dose?: No Reason for dose change: Other Pharmacist Note Pharmacist Note 04/11/18: Day #2 empiric vancomycin therapy for the treatment of septic shock with 2/2 blood cultures growing gram positive cocci in chains. It was noted that the pts scr jumped to 2.10 this morning from 1.23 yesterday. BUN is also elevated at 22 today from 14 at the start of therapy. The pts est crcl is now 35ml/min from an est crcl of 60ml/min yesterday. It is noted that the patient remains on vasopressor support. A random level was drawn to assess level before the administration of this morning's dose. The random level resulted at 20.5mcg/ml. As a result we will decrease the patient's scheduled regimen from 1g IV Q12H to 1g IV Q24H resuming tonight at 1800. A follow-up trough level is scheduled to be drawn tomorrow, 04/12/18, @1700 - prior to the 3rd dose. We will continue to monitor and make further adjustments if needed. Date: 04/10/18. PharmD note: VANCO 2GM LOAD AT 21:00; followed by VANCO 1GM IV Q12H (06:00 04/11/18). GOAL 15-20 PER ATTENDING SERVICE. ARIANNAO TR WHEN [facility] Apr 11, 2018 10:29
[2018-04-11] MEDS: PROPOFOL 1,000 MG in APPROPRIATE DILUENT 1 EA IV SCH ×4 (10:31→21:51)
--- NOTE | 2018-04-11 10:41 | HPE ---
DATE OF ADMISSION: 04/10/2017 PRIMARY CARE PROVIDER: Dr. Bennett Ni TRANSMISSION REPAIRER: Dr. Santos in [place]. CARDIAC SURGEON: in [place]. BAR GAUGER AND LUBRICATOR TENDER: Dr. Martinez ENT: Dr. Mei HISTORY OF PRESENT ILLNESS: This is a 73-year-old male who was brought to the emergency room (ER) after an episode of lightheadedness, dizziness, shortness of breath and chest pain that started earlier today around 3 p.m. while he was in the hospital visiting his and daughter who are both admitted as well. Per report, he had shaking chills with associated nausea as well as right pleuritic chest pain. After being brought down to the ER, he was noted to be hypotensive with blood pressure (BP) around 70s/50s and thus requiring emergent central line placement by Dr. Ramirez and myself as well as being started on Levophed. At the time of admission, he is able to provide limited history given his decompensated state. He does admit to a recent cold about a week ago, currently still coughing with some sputum production. He denies any abdominal pain. No dysuria. No recent changes in medications or any recent travel. Of note, he recently did have a myocardial infarction ([place]) with a double bypass done in January of 2018 and around the same time was also diagnosed with cirrhosis with liver cancer. The patient will be admitted due to his septic shock. Of note, he also does admit that he has noted clear drainage from his right medial thigh where his graft was initially taken out from. He denies any other skin rashes or lesions or changes in bowel habits. PAST MEDICAL HISTORY: 1. Coronary artery disease (CAD) status post double bypass, January 2018. 2. Liver cancer with cirrhosis. 3. Esophageal varices. 4 History of basal cell carcinoma of the scalp removed in 2018. 5 Insulin-dependent diabetes mellitus type 2. 6 Hypothyroidism. 7 Psoriasis. 8 Gastroesophageal reflux disease (GERD). HOME MEDICATIONS: - aspirin 81 mg - folic acid 1 mg by mouth daily - Lasix 20 mg by mouth daily - Lantus 60 units subcutaneous every morning - Lantus 40 units subcutaneous every evening - Humalog 20 units subcutaneous before food and at bedtime - Synthroid 137 mcg by mouth daily - lisinopril 2.5 mg by mouth daily - magnesium oxide 400 mg by mouth at bedtime - metformin 1000 mg by mouth twice a day - Protonix 40 mg by mouth daily - vitamin D 1000 units by mouth twice a day - Vytorin 1 tablet by mouth daily ALLERGIES: INSULIN DETEMIR and PHENOL. PAST SURGICAL HISTORY: 1. Coronary artery bypass grafting (CABG) times two in January 2018. 2. Basal cell carcinoma of the scalp removed, 2018. 3. Esophagogastroduodenoscopy (EGD) and colonoscopy. SOCIAL HISTORY: Smoked for about two years between ages 20 and 22. Has not smoked ever since. Alcohol: Drank between ages of 20 and 22 as well. Denies any other illicit substances. FAMILY HISTORY: Mother had diabetes and cardiovascular disease. Sister has breast cancer. Another sister has dementia. Father with diabetes. REVIEW OF SYSTEMS: GENERAL: Denies any fevers. Admits to shaking chills. Denies night sweats; however does admit to a 20-pound unintentional weight loss in the past 1-1/2 months since he has had his myocardial infarction. HEENT: Denies any blurred vision, eye pain, ear pain, headache, dysphagia or sore throat. CARDIAC: Admits to chest pain on the left side. Initially, it was on the right. Admits to chronic lower extremity edema since he had his recent coronary artery bypass grafting (CABG). PULMONARY: Admits to increased shortness of breath. Admits to a recent cold and a current cough with sputum production. Denies any wheezing. GASTROINTESTINAL (GI): Admits to nausea associated with his current shortness of breath. Denies any abdominal pain, changes in bowel habits, black tarry stools or bright bloody stools. EXTREMITIES: Denies any pain in any other extremities; however does admit to noting some clear drainage on his right medial thigh where the veins were removed for his coronary artery bypass grafting (CABG). NEUROLOGICAL: Denies any new paresthesias or loss of sensations. SKIN: Denies any new rashes, cuts or lesions. PHYSICAL EXAMINATION: VITAL SIGNS: Temperature 99.2. Of note, he was febrile at 101.2 in the ER. Pulse 115. Respirations 22. Blood pressure is 78/50 with mean arterial pressure (MAP) of 59. Pulse oximetry 96% on room air. GENERAL: A cooperative elderly gentleman in visible distress and short of breath, unable to speak in full sentences due to chest pain and difficulty breathing. HEENT: Normocephalic, atraumatic. Sclera has mild icterus. Pupils equal, round, and reactive to light and accommodation. Extraocular muscles intact. Dry mucous membranes. Neck is supple. No appreciable jugular venous distention (JVD). Trachea is midline. He is hard of hearing. CARDIAC: Tachycardic, rate is regular. Berto S1, S2. No appreciable murmurs, 1 to 2+ pitting edema bilateral lower extremities up to the knees. RESPIRATORY: Clear to auscultation bilaterally. No wheezing, rales or rhonchi. Equal chest rise. He is unable to speak in full sentences and is in visible respiratory distress using accessory muscles. ABDOMEN: Soft, nontender, nondistended and is obese. Has positive bowel sounds. MUSCULOSKELETAL: Is able to move all extremities, 2+ radial pulses bilaterally. Equal clinical microbiologist strength bilaterally. SKIN: There is an area on his medial thigh from where he had a recent donor vein for his cardiac coronary artery bypass grafting (CABG), currently it is dry. It has some healing scabs. He states that has been oozing clear fluids. LABORATORIES: White blood cell (WBC): 13.3, hemoglobin and hematocrit (H and H) 13 and 42.5, platelets 177. Electrolytes: Normal. Renal function: Normal. Lactic acid 6.5, AST and ALT 41 and 35, alkaline phosphatase 143. Cardiac markers negative times two. Thyroid-stimulating hormone (TSH) 3.87. Blood cultures: Currently pending. Respiratory panel: Negative. Influenza: Negative. IMAGING: On admission chest x-ray: Stable chronic findings without any evidence of acute infiltrate. The CT angiogram read is currently pending. CT abdomen and pelvis reveals an enhancing 3.6 cm liver mass with retrogastric adenopathy. No pneumoperitoneum or ascites. Chest x-ray status post central line placement: No pneumothorax. Study is unchanged from previous x-ray. ASSESSMENT AND PLAN: 1. Septic shock. The patient is currently requiring Levophed. A central line was placed emergently in the ER. Continue to titrate to maintain a mean arterial pressure (MAP) above 65. The current source of infection is unknown; however, he was febrile in the emergency room (ER) with a temperature of 101.2, tachycardic with a heart rate in the 100s, white count elevated at 13.3 and he is tachypneic in respiratory distress. Suspicion is high for possible urosepsis versus infection at his site, right medial thigh where his donor vein was taken out for his recent cardiac coronary artery bypass grafting (CABG) in January 2018. The patient has stated that this has been oozing clear fluids over the past three days. We will culture this. Start patient on broad-spectrum meropenem. Blood cultures are currently pending. Respiratory panel in the ER was negative. A urinalysis (UA) has been ordered as well. Given that the patient has been in and out of hospitals lately we will obtain a methicillin-resistant Staphylococcus aureus (MRSA) screen. Consider de-escalating vancomycin if methicillin-resistant Staphylococcus aureus (MRSA) is negative. Lactic acid on admission is 6.5. A repeat is currently pending. The patient has been unable to provide a urine sample thus far and order is in to obtain a urine sample with a straight catheter prior to starting his broad-spectrum antibiotics. 2. Pleuritic chest pain. The patient has complained of initially right-sided chest pain and now left-sided chest pain. Electrocardiogram (EKG) times two in the emergency room (ER) as well as cardiac markers times two have been negative thus far. We will repeat cardiac markers in the morning. The pain is worse with palpation and chest x-ray and CTA do not show any acute concerns. 3. A history of liver cancer and cirrhosis with esophageal varices. Will place his home diuretics and anti-hypertensives on hold. The patient states that he was recently diagnosed with his liver cancer of which he is found to have a liver mass on our CT on admission. He states that currently he is in the early stages of establishing with his gastrointestinal (GI) specialist in [place] and has not yet started treatment. Closely monitor given he is on pressors currently. 4. Hypothyroidism. Thyroid-stimulating hormone (TSH) is elevated on admission. Free T4 is pending. Continue Synthroid. 5. Coronary artery disease (CAD) status post coronary artery bypass grafting (CABG) times two with recent myocardial infarction in 2018. Continue his aspirin and his DAMIEN inhibitor. It appears he is not on a beta-sarath. The reason is unclear. This will require further investigation. 6. Gastroesophageal reflux disease (GERD). Continue home by mouth Protonix. 7. Insulin-dependent diabetes mellitus type 2. Replace home insulins and metformin with insulin sliding scale inpatient. 8. Gastroesophageal reflux disease (GERD). Continue home Protonix. 9. Deep vein thrombosis (DVT) prophylaxis. Lovenox subcutaneous. DISPOSITION: Will admit to the hospitalist service. Monitor closely in the intensive care unit (ICU). Is on pressors. Consider a critical care consult. Pending laboratories for infectious etiology. My preceptor for the patient encounter was Giuseppe Marie MD. My preceptor was physically present in the building during the encounter and was fully available as needed. All aspects of the patient interview, examination, medical decision-making process, and medical care plan development were reviewed and approved by the preceptor. The preceptor is aware and concurs with the plan as stated in the body of this note and will attest to such by his/her co-signature.
--- NOTE | 2018-04-11 10:56 | RO ---
DATE OF PROCEDURE: 04/11/2018 PREPROCEDURE DIAGNOSIS: Lactic acidosis. POSTPROCEDURE DIAGNOSIS: Lactic acidosis. PROCEDURE: Femoral central hemodialysis catheter. PROCEDURAL PHYSICIAN PRIMARY CARE SPORTS MEDICINE: Dr. Torres Sarmiento, PGY-1 ATTENDING PHYSICIAN: Dr. Sobia Childs who was in attendance. INDICATION: For dialysis access. Consent was obtained from patient prior to the procedure, Indications, risks, and benefits were explained at length. PROCEDURAL SUMMARY: Hand washing was completed prior to starting sterile technique. Time-out was performed. I wore a surgical cap, mask, protective eye wear, full gown and sterile gloves throughout the procedure. Patient's right femoral groin was prepped using chlorhexidine scrub and draped in a sterile fashion using a full drape and sterile probe cover was employed. The femoral artery and vein were identified using the ultrasound probe. The introducer needle was inserted into the right femoral vein under direct ultrasound visualization. Venous blood was withdrawn. The syringe was removed and the guidewire was advanced into the introducer needle. The guidewire was visualized in the right femoral vein by ultrasound. A small incision was made into the skin surface with a scalpel and the introducer needle was exchanged for a dilator over the guidewire. After appropriate double dilatation was obtained, dilator was exchanged over the wire for a double lumen hemodialysis catheter. The wire was removed and the catheter was sutured in place. A sterile impregnated dressing was placed over the catheter at the insertion site. Patient tolerated the procedure without any hemodynamic compromise. During the procedure, the patient was intubated and sedated. At the time of procedure completion, all ports were aspirated and flushed properly. Estimated blood loss 1- 2 mL. MTDD
--- NOTE | 2018-04-11 11:36 | CR ---
DATE OF CONSULTATION: 04/11/2018 HISTORY OF PRESENT ILLNESS: Patient is a 73-year-old male with a past medical history of insulin dependent diabetes, hypothyroidism, basal cell carcinoma, psoriasis, gastroesophageal reflux disease (GERD), coronary artery disease status post coronary artery bypass grafting (CABG) in January 2018, cirrhosis, recently diagnosed liver cancer, who presented initially as a rapid response when he was visiting his in the hospital. The patient had complaints of shortness of breath and rigors. He was noted to be hypotensive and febrile as well as with a leukocytosis. He was given IV fluid boluses with no improvement in his blood pressure, and was admitted to the ICU for septic shock. He was given broad spectrum antibiotics. He had a right IJ triple lumen placed yesterday and was started on Levophed for vasopressor support. Overnight, the patient was complaining of increasing shortness of breath and difficulty breathing as well as with some chest pain, which he reported was radiating across his chest as well as to his back. He does have an occasional cough productive of mucous. Overnight, the patient was noted to have worsening acidosis and requiring increasing Levophed. He was also noted to have some positive cardiac enzymes. He was given bicarbonate 2 amp push as well as started on bicarbonate drip for his worsening acidosis as well as given nitroglycerin, morphine and aspirin. On exam early this morning, he was significantly tachypneic, unable to speak in complete sentences. He continued to complain of shortness of breath. His chest pain had improved. He denied any nausea or vomiting, no abdominal pain. He does have lower extremity edema. Unclear if it has worsened recently. He has had lower extremity edema since September of last year. Patient had reported a history of some drainage of what sounds like serosanguineous fluid from his incision site where he had his graft surgery in his right lower extremity. He also reported to the nurse a history of painful lesion in his genital area which can come and go, was unsure and had never had any testing done for that previously. PAST MEDICAL/SURGICAL HISTORY: Insulin dependent diabetes. Hypothyroidism. Basal cell carcinoma. Liver cancer, likely hepatocellular carcinoma. Cirrhosis. Esophageal varices. Psoriasis. GERD. Hyperlipidemia. Hypertension. Coronary artery disease status post CABG in January 2018. SOCIAL HISTORY: Patient reports a remote history of smoking and alcohol use for two years from the age of [age]s. Denied any alcohol or tobacco use after that. He does report a history of hepatitis A but denies any other diagnosis of hepatitis. ALLERGIES: 1. INSULIN. 2. PHENOL. HOME MEDICATIONS: - folic acid - Lasix 20 mg daily - Lantus - lispro - lisinopril - magnesium oxide - metformin 1 gram twice a day - vitamin D - Vytorin - aspirin - Synthroid - pantoprazole REVIEW OF SYSTEMS: As per HPI, is limited as the patient is significantly short of breath and in respiratory distress, unable to easily converse. PHYSICAL EXAMINATION: VITALS: T-max was 101.2, T-current 97.0. Pulse 103. Respiratory rate 37. Blood pressure 79/51. Oxygen 98% on 2 liters nasal cannula. GENERAL: Patient is an obese male, is pale, appears to be in some moderate respiratory distress, is tachypneic and unable to speak in complete sentences. HEENT: Normocephalic, atraumatic. Pupils are reactive. Mucous membranes are dry. NECK: Thick neck. There is a right IJ central line in place. Unable to appreciate any jugular venous distention (JVD). CARDIAC: Tachycardic, regular rate and rhythm. Normal S1 and S2. Unable to appreciate any murmurs. LUNGS: Coarse ventilator breath sounds, some mild crackles at the bases. ABDOMEN: Soft, mildly distended, nontender. EXTREMITIES: Lower extremities there is pitting edema, +2 bilaterally. There is also a incision wound from his vein graft removal for his bypass surgery that appears discolored and slightly erythematous and indurated. There is no increased warmth noted. He also has a healing wound in his scrotal area. LABS: WBC 36.6, hemoglobin 13.8, platelets 175. Chemistries: Sodium 135, potassium 5.0, chloride 100, bicarb 8, BUN 22, creatinine 2.10, glucose 176, lactic acid trending up from 13.5 to 17.2, AST/ALT increasing, AST 470, ALT 296, total bilirubin 2.5, troponin increasing to 1.22, BNP was 419. Blood cultures preliminarily grew positive for gram positive cocci. IMAGING: Chest x-ray showed a right IJ line in place with some mild pulmonary vascular congestion. Post intubation chest x-ray pending. CT angiogram no evidence of pulmonary embolism (PE) or dissection. There is moderate pericardial effusion and RV appears collapsing. There is no focal infiltrate seen in the lungs. There was some mild intralobular septal thickening and a trace right pleural effusion. CT abdomen and pelvis showed a 3.6 cm liver mass with some retrogastric adenopathy. ASSESSMENT/PLAN: Mr. Collado is a 73-year-old male with a past medical history of diabetes, hypertension, hyperlipidemia, hypothyroidism, cirrhosis, recently diagnosed liver cancer, coronary artery disease status post coronary artery bypass grafting (CABG) who presented with hypotension, fevers and leukocytosis consistent with sepsis. The patient was given fluid boluses with no improvement. He was started on vasopressor support for septic shock. He had significant lactic acidosis, likely initially due to his severe sepsis. The patient continued to have worsening acidosis and decreased urine output during the night. Suspect that some of his lactic acidosis at this time is multifactorial. He does have a history of liver cancer so may have a component of lactic acidosis secondary to that with some decreased clearance. He had also been on metformin prior to his admission which can also cause lactic acidosis. The patient was significantly tachypneic and in some respiratory distress as he has been attempting to compensate for his severe metabolic acidosis. He was intubated due to respiratory distress and hemodynamic instability as he was requiring increasing doses of Levophed. The patient also had a hemodialysis catheter placed this morning for initiation of continuous venovenous hemofiltration (CVVH) and a femoral arterial line placed as well for hemodynamic monitoring. 1. Neuro. Patient is intubated and sedated. He is on propofol for sedation. His goal Victoriano is 2-3. Would continue with daily sedation vacations. Fentanyl prn for pain control 2. Cardiovascular. History of coronary artery disease status post CABG in January 2018. Patient with shock, likely secondary to the sepsis. Requiring vasopressor for blood pressure support. Patient was requiring increasing doses of Levophed, was up to 24 mcg per minute and continued to be hypotensive. GIAPREZA was started as a second vasopressor and will titrate down the Levophed as tolerated, to maintain a map above 65. The patient was also noted to have some positive cardiac enzymes, likely demand ischemia, in the setting of severe sepsis. He was given aspirin, morphine and nitroglycerin overnight. The patient was on aspirin as an outpatient, was not on Plavix given his new diagnosis of liver cancer and cirrhosis. The patient was noted on CT chest to have a moderate pericardial effusion with RV appearing collapsing. Would get echocardiogram to evaluate for possible tamponade. Would also evaluate for any evidence of endocarditis on echo. Continue to trend cardiac enzymes. EKG did not show any acute ST changes. Continue with aspirin. Will hold statin given his liver disease and increasing LFTs. Will continue to trend lactic acid. Patient already received multiple liters of normal saline boluses. Will hold off on further fluids at this time. 3. Pulmonary. Patient had ABG which showed a severe metabolic acidosis with respiratory compensation. The patient was significantly tachypneic and in respiratory distress due to his compensation. He was intubated for his respiratory distress today. Patient is currently on the ventilator, is on PRVC mode at 450, 27, 50 and 5. Will continue to wean down FiO2 as tolerated to maintain an oxygen saturation above 90%. Patient had an arterial line placed for hemodynamic monitoring and for frequent ABGs. Will repeat a ABG after intubation and adjust vent settings as needed. Continue vent bundle are with head of bed elevation and chlorhexidine mouthwash. Daily chest x-rays and ABGs while intubated. 4. Renal. Patient with likely acute kidney injury and renal failure in the setting of septic shock. He had also been on metformin prior to his admission and he had also received IV contrast dye as well when he already did have some evidence of kidney injury. The patient was now oliguric and having severe metabolic acidosis secondary to lactic acidosis. Initially his lactic acidosis was likely due to hypoperfusion from his septic shock, however given his history of liver cancer and cirrhosis, there may be also a component of decreased clearance with increased production from his cancer. The metformin can also cause a lactic acidosis and with his renal failure he may be having difficulty with clearance as well. The patient was given amps of bicarbonate as well as started on a bicarb drip; however, he continues to have worsening and persistent acidosis. Renal was consulted and the patient had a hemodialysis catheter placed in the right femoral vein. The patient will be started on CVVH with no fluid removal currently. Patient had a Resendez placed. Will continue to monitor ins and outs. Patient had some hyperkalemia likely in the setting of his acute renal failure. Will continue to monitor. Will continue to trend his lactic acid and follow-up his acid based status on repeat ABGs. Once the patient is on CVVH can discontinue the bicarbonate drip. 5. Gastrointestinal (GI). Patient has a history of cirrhosis, unclear etiology. As per the patient he reportedly only a history of drinking his teens. He did have a history of hepatitis A but denies any other history of hepatitis. Patient also reports a history of recently diagnosed hepatocellular carcinoma for which he had a biopsy of what appears to be a 3.6 cm lesion on our imaging and was told he had liver cancer. He has not received any treatment or follow-up yet for that. Will start work-up for cirrhosis and liver failure with hep serologies, ceruloplasmin, ferritin, aspirin, acetaminophen level The patient has transaminitis and increasing bilirubin likely shock liver on top of his chronic cirrhosis. Will continue to monitor his LFTs. Patient is nothing by mouth, has an OG tube placed. Gastrointestinal (GI) prophylaxis with pantoprazole. 6. Infectious disease. Patient with septic shock with fever and leukocytosis. CT chest does not show any evidence of any focal infiltrates or opacities. His UA was negative as well on admission with no leukocyte esterase or nitrates. Patient had reported a history of some serosanguineous drainage from his incision site in his right lower extremity where he had his vein graft surgery done for his bypass. That area does appear to be slightly indurated although there is no active drainage currently. His preliminary blood cultures were also positive for gram positive cocci. Patient likely with bacteremia as a source of his sepsis possibly related to his wound. Will get an echocardiogram to evaluate for any endocarditis. Continue with broad spectrum antibiotics. Currently he is no vancomycin nd Zosyn. Once there is more final speciation from his blood cultures can likely discontinue the Zosyn. 7. Endocrine. Patient has a history of insulin dependent diabetes and hypothyroidism. Will hold his metformin and continue with fingerstick glucose every 4 hours with sliding scale coverage. The patient's TSH and free T4 were slightly elevated. He is on Synthroid as an outpatient. Likely will need some dose adjustment as an outpatient. Will continue with Synthroid at the current dose for now. CODE STATUS: FULL CODE. Deep vein thrombosis (DVT) prophylaxis with heparin. Total critical care time spent, not including any procedure, 1 hour and 55 minutes. MTDD
[2018-04-11] MEDS ORDERED: LIDOCAINE 1% MDV 20ML VIAL As Ordered ONE (12:01)
[2018-04-11] MEDS ORDERED: LIDOCAINE 1% MDV 20ML VIAL SC ONE (12:30)
[2018-04-11 13:10] LABS: ABG BASE EXCESS -18.5 (-2.0-2.0); ABG HCO3 7.5 MEQ/L (22.0-26.0); ABG O2 SATURATION 98.6 % (95.0-99.0); ABG PARTIAL PRESSURE O2 138.2 mmHg (75.0-100.0); ABG TOTAL CO2 8.1 MEQ/L (23.0-31.0)
[2018-04-11 13:13] LABS: ABG pH (ARTERIAL) 7.197 UNITS (7.350-7.450)
[2018-04-11 13:14] LABS: ABG PARTIAL PRESSURE CO2 19.7 mmHg (35.0-45.0)
[2018-04-11 13:16] LABS: ACETAMINOPHEN LEVEL < 2.0 UG/ML (10.0-30.0); FERRITIN 115 NG/ML (26-388); IRON (FE) 16 UG/DL (65-175); PERCENT SATURATION 5.6 % (19.7-50.0); SALICYLATE LEVEL < 1.7 MG/DL (5.0-30.0); TOTAL IRON BINDING CAPACITY 286 UG/DL (250-450)
[2018-04-11] MEDS ORDERED: fentaNYL 100 MCG/2 ML INJECTION (J3010) IV PRN (13:30)
[2018-04-11] MEDS: CALCIUM GLUCONATE 1,000 MG in NS 100 ML IV SCH ×4 (13:38→21:51)
[2018-04-11 13:52] LABS: PH BODY FLUID < 6.500 UNITS (NOT ESTABLISHED); SOURCE, BODY FLUID pH PERICARDIAL
--- NOTE | 2018-04-11 13:56 | CR ---
DATE OF CONSULTATION: 04/11/2018 REQUESTING PHYSICIAN: Kenna Alfaro DO REASON FOR CONSULTATION: Acute kidney injury and anion gap metabolic acidosis in this patient admitted with septic shock. HISTORY OF PRESENT ILLNESS: The history is obtained from chart review and discussion with the patient's , Bridget Collado, and daughter, Balbina. The patient is unable to provide any history due to clinical condition. Marshall Collado is a 73-year-old male with a past medical history of insulin-dependent diabetes mellitus, hypothyroidism, basal cell carcinoma, psoriasis, gastroesophageal reflux disease (GERD), history of coronary artery disease status post coronary artery bypass graft (CABG) in January 2018 with vein harvesting from the right lower extremity, recently diagnosed liver cancer. The patient yesterday was visiting his , who is a dialysis patient in the hospital. While seeing his , the patient complained of weakness and dizziness and was noted to have chills and rigors. He was brought down to the emergency room, where he was noted to be severely hypotensive. An emergent central line was placed, and the patient was started on Levophed infusion. He was febrile in the emergency room with a temperature of 101. He was noted to have a leukocytosis. He was admitted to the intensive care unit (ICU) for septic shock. Had multiple fluid boluses administered. His initial lactic acid was 6. However, this climbed to a lactic of 12 overnight. The patient continued to have escalating pressor requirements throughout the night. Levophed went as high as 30 mcg. Cardiac enzymes also uptrended. This morning, his chemistries showed severe anion gap metabolic acidosis with serum bicarbonate of 8, and arterial blood gas (ABG) revealed metabolic acidosis with respiratory compensation. The patient was noted to be in oligoanuric renal failure, and I was called this morning for help in the management of this gentleman. The patient was evaluated by tobacco stripping machine operator this morning, as well. He was intubated, and a second pressor was started. The patient was also placed on bicarbonate-based fluids and given 150 mEq push of bicarbonate. The family reports he had some oozing from the vein harvesting site in the right thigh, and his infectious workup is underway. Blood cultures grew gram positive cocci in chains, two out of two sets. Renal failure was discussed with his daughter, who consents for initiation of continuous renal replacement therapy. PAST MEDICAL AND PAST SURGICAL HISTORY: Insulin-dependent diabetes. Hypothyroidism. Basal cell carcinoma. Recently-diagnosed cirrhosis and liver cancer. Esophageal varices. Psoriasis. Gastroesophageal reflux disease (GERD). Hyperlipidemia. Hypertension. Coronary artery disease, status post CABG in January 2018. SOCIAL HISTORY: Remote smoker and no reported alcohol use. Lives at home with his . ALLERGIES: INSULIN DETEMIR, and PHENOL. HOME MEDICATIONS: Reviewed and include aspirin, folic acid, furosemide, insulin, levothyroxine, lisinopril, magnesium, metformin, Protonix, and vitamin D. REVIEW OF SYSTEMS: Unable to obtain secondary to clinical condition. The patient is intubated and sedated. PHYSICAL EXAMINATION: VITAL SIGNS: Temperature 97.0, maximum temperature (Tmax) was 101.2 in the emergency room at 3 p.m. yesterday, heart rate 109, respiratory rate 28, blood pressure 104/61, saturating 98% on 50% FIO2. Intake yesterday was 3 liters. Urine output yesterday was 100 mL. Intake thus far today is 1.7 liters. GENERAL: The patient is seen in the intensive care unit, intubated, sedated. Extraocular muscles are reactive. Endotracheal tube is in place. He is breathing above the vent. His mucous membranes are dry. There is a right internal jugular (vein) (IJ) central line in place. The jugular veins do not appear elevated. CARDIAC: Tachycardic. Heart rate about 110. Regular rate and rhythm. S1, S2. No appreciable murmur. LUNGS: Coarse breath sounds bilaterally. He is tachypneic, breathing above the vent about 30 breaths per minute. ABDOMEN: Is soft. He does not grimace to palpation. There is an occasional hypoactive bowel sound. EXTREMITIES: There is pitting edema about 1-2+. There is compression stocking. There is a small area on the inner right thigh at site of vein harvesting that has surrounding erythema. GENITOURINARY: Shows Resendez catheter with minimal urine output. There is a dialysis catheter present in the right femoral vein. LABORATORIES: White count 36, hemoglobin 13, platelet 175. Sodium 135, potassium 5.0, bicarbonate 8, anion gap of 27, BUN 22, creatinine 2.1, lactic acid 17, magnesium 2.0, AST 470, ALT 296. INR 2.0. Blood cultures: Two out of two sets growing gram positive cocci in chains. pH 7.1, PCO2 17, pO2 146. IMAGING: CT abdomen and pelvis with intravenous (IV) contrast. There is an enhancing 3.6 cm liver mass with numerous retrogastric mesenteric nodes. Adrenals and kidneys are unremarkable. CT angiography 04/10/2018 IV contrast, no pulmonary emboli, infiltrate, or effusion. INPATIENT MEDICATIONS: The patient is on Levophed infusion, on Giapreza infusion, propofol drip, receiving calcium gluconate. Also receiving magnesium supplementation. He received about 5 liters of normal saline. He is on a sodium bicarbonate drip 150 mEq at 120 mL/h. Zosyn 3.375 grams IV every 6 hours. Vancomycin, he received 2 grams IV times one. Aspirin 81 mg by mouth daily. Etomidate 20 mg IV times one. Levothyroxine 137 mcg by mouth daily. Protonix 40 mg by mouth daily. He received 150 mEq push of sodium bicarbonate. PROBLEMS: 1. Oligoanuric renal failure in the setting of severe septic shock with significant pressor requirement with concomitant contrast-induced nephropathy. The patient has significant anion gap metabolic acidosis secondary to septic shock, possible underlying liver dysfunction, history of recent metformin use. His lactic has risen to 17. He has been treated with 150 mEq push of sodium bicarbonate and also with a bicarbonate drip. He absolutely requires initiation of continuous renal replacement therapy (CRRT). Claims Adjuster Supervisor has assisted with the placement of temporary dialysis catheter. CRRT orders are being written for a goal effluent dose of 20-25 mL/kg/h. We will keep him even today without additional fluid removal. I have discussed with his family that the renal failure is not necessarily permanent. If he survives this critical illness, there is a possibility of renal recovery. 2. Septic shock, pressor dependent. Initially was on almost maximal dose of Levophed. Now Giapreza has also been started, and Levophed is being weaned. Please maintain MAPs greater than 65. He has received almost 5 liter bolus of IV fluid. He is in oligoanuric renal failure. He has been started on broad-spectrum antimicrobials per the primary team. On vancomycin and Zosyn. His random vancomycin levels will need to be checked daily so he can be dosed appropriately. His blood cultures grew gram positive cocci in chains. The infectious workup is ongoing. Repeat lactic acid is ordered. The effluent dose delivered by CRRT can be increased depending on his repeat laboratories and repeat lactic acid. His bicarbonate infusion can be discontinued after CRRT is running. Will plan for repeat lactic at 2 p.m. 3. Anion gap metabolic acidosis. Severe. pH 7.1 with lactic acid uptrending from 6 on admission to 17 this morning in this patient with septic shock, pressure dependent, probable underlying liver dysfunction and recent chronic use of metformin. He has respiration compensation. He will need continuous renal replacement therapy in view of his severe acidosis. The dose of dialysis can be increased depending on the repeat chemistry and repeat lactic. 4. Transaminitis and coagulopathy. His international normalized ratio (INR) is noted to increase from 1.2 to 2.0. I am not ordering any anticoagulation with his continuous renal replacement therapy. His coagulopathy is addressed by the tobacco stripping machine operator team. He is ordered for a fresh frozen plasma. Would trend his liver function tests (LFTs), as well, and watch for shock liver. Plan of care was discussed with Dr. Childs and also with the patient's next of kin, Bridget, and his daughter, Balbina. Thank you for involving me in the care of Mr. Collado. I will be happy to follow him along with you.
[2018-04-11 14:17] LABS: SPEC. GRAVITY BODY FLUIDS 1.034 (NOT ESTABLISHED)
[2018-04-11 14:30] LABS: APPEARANCE, BODY FLUID CLOUDY (CLEAR); SOURCE, BODY FLUID PERICARDIAL
[2018-04-11 14:50] LABS: LDH, BODY FLUID 3247 U/L (NOT ESTABLISHED); SOURCE, BODY FLUID ALBUMIN PERICARDIAL; SOURCE, BODY FLUID GLUCOSE PERICARDIAL; SOURCE, BODY FLUID LDH PERICARDIAL; SOURCE, BODY FLUID TOT PROTEIN PERICARDIAL; TOTAL PROTEIN, BODY FLUID 5.7 G/DL (NOT ESTABLISHED)
--- NOTE | 2018-04-11 15:29 | REP ---
RENAL AND BLADDER ULTRASOUND: Real-time sonographic evaluation of the kidneys are performed and demonstrates both kidneys to be normal in size and echotexture, right kidney measuring 11.4 x 5.6 x 5.5 cm and left kidney 10.7 x 6.3 x 6.6 cm. There is no hydronephrosis bilaterally. No renal mass is seen. There is trace ascites in the abdomen and a tiny right effusion is present. A Resendez catheter is seen in the urinary bladder. Bladder is collapsed. Study is somewhat limited due to inability to suspend respirations. IMPRESSION: No hydronephrosis. Trace abdominal ascites and right pleural fluid. Electronically Signed by Garrett Salgado MD 04/12/2018 03:53 P
[2018-04-11 16:23] LABS: ABG BASE EXCESS -14.2 (-2.0-2.0); ABG PARTIAL PRESSURE CO2 21.9 mmHg (35.0-45.0); ABG pH (ARTERIAL) 7.291 UNITS (7.350-7.450)
[2018-04-11 16:23] LABS: HEMOGLOBIN 12.3 g/dl (13.5-17.5); MEAN CORPUSCULAR HEMOGLOBIN 24.5 pg (27.0-33.0); MEAN CORPUSCULAR VOLUME 81.7 fl (80.0-96.0); RED BLOOD COUNT 5.02 10^6/uL (4.30-6.10)
[2018-04-11 16:24] LABS: ABG HCO3 10.3 MEQ/L (22.0-26.0); ABG O2 SATURATION 98.4 % (95.0-99.0); ABG STANDARD HCO3 13.6 MEQ/L (22.0-26.0)
[2018-04-11 16:52] LABS: PLATELET COUNT, AUTOMATED 73 10^3/uL (150-450)
[2018-04-11 17:11] LABS: CALCIUM LEVEL 7.8 MG/DL (8.8-10.2); CREATININE FOR GFR 2.04 MG/DL (0.70-1.30); GLOMERULAR FILTRATION RATE 34.4 (>42); MAGNESIUM LEVEL 1.7 MG/DL (1.8-2.4); PHOSPHORUS LEVEL 4.6 MG/DL (2.5-4.9)
[2018-04-11] MEDS ORDERED: MAG SULF 1GM/100ML (MAG RUN) 1 GM in APPROPRIATE DILUENT 1 EA IV ONE (18:00)
--- NOTE | 2018-04-11 18:13 | REP ---
Portable chest, 12:30 p.m., single AP view, the patient supine: Comparison is from 08:18 earlier today. There is new tubing transversely across the upper abdomen as an interval change. The endotracheal tube remains in satisfactory position with the tip at the level of the aortic arch above the roselyn. The nasogastric tube remains in satisfactory position with the tip in the abdominal left upper quadrant. The right IJ central venous catheter remains in satisfactory position with the tip at the confluence of the superior vena cava and right atrium. Lung maya remain clear. There is cardiomegaly, unchanged. Impression: New tubing transversely across the upper abdomen. No other interval change. Electronically Signed by Garrett Argueta MD 04/11/2018 06:05 P
--- NOTE | 2018-04-11 18:19 | REP ---
The soft tissue ultrasound of the distal medial right thigh at an area of incision: There is focal swelling at the area of incision. Multiple ultrasonographic images are performed in the area of swelling. There is no focal fluid collection to suggest hematoma or abscess. There is no solid mass. A soft tissue edema is identified. Impression: There is no hematoma, abscess or mass. There is soft tissue edema. Electronically Signed by Garrett Argueta MD 04/11/2018 06:10 P
[2018-04-11] MEDS ORDERED: CALCIUM GLUCONATE 1,000 MG in NS 100 ML IV SCH (20:00)
--- NOTE | 2018-04-11 20:00 | ECHO ---
DATE OF PROCEDURE: 04/10/2018 AGE: 73 GENDER: Male REFERRING PHYSICIAN: Dr. Kenna Alfaro HEIGHT: 67 inches. WEIGHT: 211 pounds. BODY SURFACE AREA: 2.07 sq m. INPATIENT: ICU Room 3207 INDICATION: Dyspnea. MEASUREMENTS: 2D MEASUREMENTS: RV - 3.8 cm LV- 3.5 cm Septum - 1.2 cm Posterior wall - 1.2 cm Aortic root - 3.5 cm LA - 3.8 cm LVEF - 75% DOPPLER MEASUREMENTS: AV - 1.1 m/s LVOT - 0.97 m/s LVOT diameter- 2.2 cm MV-E: 110 A: 103 EA ratio 0.9 Early mitral deceleration time 173 ms E-prime - 6.5 A-prime - 11 E/E prime ratio 17.5 PV - 0.9 m/s Pulmonary artery acceleration time 81 ms PASP - 43 mmHg IVC- 3.0 cm COMMENT Normal sinus tachycardia without intraventricular conduction disturbance. Technically challenging study in light of the patient's body habitus and the fact he was on a mechanical ventilator, but diagnostically useful information was still obtained. M-mode, two-dimensional echocardiography was performed along with pulsed, continuous wave, color flow and tissue Doppler studies. At least borderline concentric left ventricle hypertrophy with hyperkinetic wall motion. Left atrium upper limits of normal to mildly dilated with Doppler evidence of an impairment of LV diastolic function and at least mildly elevated mean left atrial pressure. Normal right heart chamber size is Center compressed due to a large pericardial effusion. Doppler sign of at least moderate pulmonary hypertension. Dilated inferior vena cava with reduced respiratory collapse in keeping with an elevated central venous pressure. Mild aortic valvular sclerosis without functional valvular abnormality. Normal aortic root size. Moderately severe mitral annular calcification without functional valvular abnormality. Large pericardial effusion measuring up to 4.0 cm anteriorly and inferiorly with obvious right heart chamber compression. Definite respiratory variation to Doppler flow signals in keeping with the clinical cardiac tamponade. A preliminary report of this study has already been relayed to Dr. Childs and Dr. Prasad directly.
--- NOTE | 2018-04-11 20:16 | REPVR ---
EXAM: US Duplex Right Lower Extremity Veins, Limited EXAM DATE/TIME: 04/11/2018 7:12 PM CLINICAL HISTORY: 73 years old, male; Signs and symptoms; Edema, localized; Lower extremity, right; Additional info: Cold extremity TECHNIQUE: Real-time Duplex ultrasound of the Right Lower Extremity with 2-D porter scale, color Doppler flow and spectral waveform analysis. Limited exam was focused on the right lower extremity veins. COMPARISON: US Duplex, Ext,LOWER veins,unilat 03/11/2018 3:11 PM FINDINGS: Right deep veins: Unremarkable. The common femoral vein was obscured by overlying bandaging. The femoral, proximal profunda femoral and popliteal veins are patent without thrombus. Normal Doppler waveforms. Normal compressibility and/or augmentation response. Right superficial veins: Unremarkable. Saphenofemoral junction is patent without thrombus. Soft tissues: Unremarkable. IMPRESSION: No acute findings. No evidence of deep vein thrombosis. Electronically signed by: Valente Majano On 04/11/2018 20:15:46 PM
--- NOTE | 2018-04-11 20:25 | REPVR ---
EXAM: US Duplex Right Lower Extremity Arteries EXAM DATE/TIME: 04/11/2018 7:12 PM CLINICAL HISTORY: 73 years old, male; Signs and symptoms; Edema, localized; Lower extremity, right; Additional info: Cold extremity TECHNIQUE: Real-time duplex ultrasound scan of the Right lower extremity arteries integrating B-mode two-dimensional vascular structure, Doppler spectral analysis and color flow Doppler imaging. COMPARISON: US EXTREMITY NON VASCUL LIMITED 04/11/2018 5:47 PM FINDINGS: Right external iliac artery: No occlusion or significant stenosis. Normal waveform. Right common femoral artery: Not visualized due to overlying bandaging and presence of a central line. Right superficial femoral artery: No occlusion or significant stenosis. Normal waveform in the proximal and mid segments with a biphasic waveform distally.. Right popliteal artery: No occlusion or significant stenosis. Normal waveform. Right calf/foot arteries: Proximal anterior tibial artery and posterior tibial artery obscured the leg edema. Remaining vessels are unremarkable. No occlusion or significant stenosis. Normal waveform. Soft tissues: Unremarkable. IMPRESSION: Limited evaluation. No acute findings. Electronically signed by: Valente Majano On 04/11/2018 20:24:55 PM
[2018-04-11] MEDS: HEPARIN 1,000 UNITS/ML 10ML VIAL (FOR RADIOLOGY& DIALYSIS ONLY) IV PRN (21:04)
[2018-04-11] MEDS ORDERED: ISOVUE-370 76% 100ML VIAL (Q9967) As Ordered ONE (21:08)
[2018-04-11] MEDS ORDERED: SODIUM BICARBONATE 150 MEQ in D5W 1,000 ML IV SCH (22:00)
[2018-04-11 22:01] LABS: ABG BASE EXCESS -13.2 (-2.0-2.0); ABG HCO3 12.3 MEQ/L (22.0-26.0); ABG O2 SATURATION 96.3 % (95.0-99.0); ABG PARTIAL PRESSURE O2 95.7 mmHg (75.0-100.0); ABG STANDARD HCO3 14.3 MEQ/L (22.0-26.0); ABG TOTAL CO2 13.2 MEQ/L (23.0-31.0); ABG pH (ARTERIAL) 7.262 UNITS (7.350-7.450)
[2018-04-11 22:05] LABS: HEMATOCRIT 41.4 % (42.0-52.0); HEMOGLOBIN 12.1 g/dl (13.5-17.5); MEAN CORPUSCULAR HEMOGLOBIN 24.4 pg (27.0-33.0); MEAN CORPUSCULAR HGB CONC 29.2 g/dl (32.0-36.5); MEAN CORPUSCULAR VOLUME 83.6 fl (80.0-96.0); RED BLOOD COUNT 4.95 10^6/uL (4.30-6.10)
[2018-04-11] MEDS: NOREPINEPHRINE BITARTRATE 16 MG in D5W 484 ML IV SCH (22:05)
[2018-04-11 22:08] LABS: PLATELET COUNT, AUTOMATED 79 10^3/uL (150-450)
[2018-04-11 22:21] LABS: INR 2.73; PROTHROMBIN TIME 29.5 SECONDS (12.1-14.4)
--- NOTE | 2018-04-11 22:21 | REPVR ---
EXAM: CT Bilateral Angiogram of the Abdominal Aorta and Bilateral Lower Extremities (Run-off) With IV Contrast EXAM DATE/TIME: 04/11/2018 9:25 PM CLINICAL HISTORY: 73 years old, male; Abnormal findings; Other: Lactic acidemia; Additional info: Lactic academia, ? ischemic bowel, ? embolus to mesenteric and rle TECHNIQUE: Bilateral CT angiogram of the abdominal aorta, pelvis and bilateral lower extremities with IV iodinated contrast. All CT scans at this facility use at least one of these dose optimization techniques: automated exposure control; mA and/or kV adjustment per patient size (includes targeted exams where dose is matched to clinical indication); or iterative reconstruction. Coronal and sagittal reformatted images were created and reviewed. MIP and 3D reconstructed images were created and reviewed. CONTRAST: 100 ml of ISOVUE 370 administered intravenously. COMPARISON: CT ANGIO CHEST 04/10/2018 4:17 PM FINDINGS: Tubes, catheters and devices: NG tube in stomach. Resendez catheter in a collapsed urinary bladder. Aorta: The aorta demonstrates mild atherosclerotic calcification. Celiac trunk and mesenteric arteries: Mild atherosclerotic changes origin of the superior mesenteric artery without significant stenosis. Normal inferior mesenteric artery. Renal arteries: Mild atherosclerotic changes at the origin of the renal arteries without significant stenosis or poststenotic dilatation. Right iliac arteries: No occlusion or significant stenosis. Right femoral/popliteal arteries: No occlusion or significant stenosis. Right infrapopliteal arteries: Nonfilling of the distal right anterior tibial artery likely secondary to mild atherosclerotic disease. Nonfilling of the right dorsalis pedis artery. Left iliac arteries: No occlusion or significant stenosis. Left femoral/popliteal arteries: Mild atherosclerotic changes in the left common femoral artery and visualized proximal left femoral artery Minimal atherosclerotic disease in the proximal left femoral artery. No significant stenosis. Left infrapopliteal arteries: Three-vessel runoff left leg with nonfilling of the left dorsalis pedis artery. Lower thorax: Bilateral pleural effusions and compressive atelectasis. Liver: Prominent left lobe of the liver with mild lobularity of the hepatic contour, findings suggestive of hepatocellular disease including cirrhosis. Clinical correlation needed. Depression. Gallbladder and bile ducts: Thickening of the gallbladder wall without evidence of calculi. Small amount of sludge in the gallbladder lumen. Findings likely related to the presence of mild ascites. Pancreas: Unremarkable. No mass. No ductal dilation. Spleen: Normal. No splenomegaly. Adrenals: Mild atherosclerotic changes in the right common femoral and visualized proximal left femoral artery. Kidneys and ureters: Normal. No mass. Stomach and bowel: Diffuse thickening of the wall of the stomach likely related to nonfilling. Clinical correlation to exclude infiltrative disease suggested. Boggy appearance of the right colon, findings which can BE associated with colitis. Several loops of small bowel in the mid abdomen and left upper quadrant demonstrate wall thickening and enhancement of the bowel wall, findings which can be associated with enteritis. Appendix: No evidence of appendicitis. Bladder: Unremarkable. No mass. Reproductive: Unremarkable as visualized. Intraperitoneal space: There is a small amount of free intraperitoneal fluid present. Impression Lymph nodes: No lymphadenopathy. Bones/joints: The spine demonstrates mild degenerative changes. Soft tissues: There is soft tissue edema demonstrated in the abdominal wall, flanks and buttock regions consistent with anasarca. Other findings: Atherosclerotic changes in the iliac arteries. IMPRESSION: 1. Anasarca. 2. Thickening of the gallbladder wall without evidence of calculi. Small amount of sludge in the gallbladder lumen. Findings likely related to the presence of mild ascites. 3. Boggy appearance of the right colon, findings which can BE associated with colitis. 4. Mild atherosclerotic disease in the abdominal arteries without significant stenosis or occlusion. Mild atherosclerotic disease in the pelvic arteries without significant stenosis. Minimal atherosclerotic changes in both leg arteries with three-vessel runoff to nonfilling of the dorsalis pedis artery both legs. Electronically signed by: Valente Majano On 04/11/2018 22:21:20 PM
[2018-04-11 22:22] LABS: PARTIAL THROMBOPLASTIN TIME 51.5 SECONDS (25.4-37.6)
[2018-04-11 22:24] LABS: MB/CK RELATIVE INDEX 3.2 (< OR =4); POTASSIUM SERUM 4.1 MEQ/L (3.5-5.1); TROPONIN I 2.44 NG/ML (< 0.10)
[2018-04-11] MEDS ORDERED: HEPARIN DRIP 25,000 UNITS in APPROPRIATE DILUENT 1 EA IV SCH (22:46)
[2018-04-11] MEDS ORDERED: ONDANSETRON 4MG/2ML VIAL (J2405) IV PRN (23:00)
[2018-04-11 23:22] LABS: ALBUMIN 2.3 GM/DL (3.2-5.2); BILIRUBIN,DIRECT 1.8 MG/DL (0.0-0.2); BILIRUBIN,TOTAL 2.5 MG/DL (0.2-1.0); TOTAL PROTEIN 4.8 GM/DL (6.4-8.2)
[2018-04-12] VITALS (21 sets, daily range): BP systolic 61–131; BP diastolic 38–59
--- NOTE | 2018-04-12 00:37 | ECGEPIP ---
Stationary ECG Study [facility] - ED Test Date: 2018-04-10 Pat Name: ALLAN GERMAIN Department: Room: - Gender: M Pharmacy Resource Tech: [facility] : 1945 Requested By: Estela Salomon Order Number: [id number] Reading MD: Nick Harper Measurements Intervals [place] Rate: 115 P: 62 MA: 188 QRS: -72 QRSD: 99 T: 27 QT: 351 QTc: 486 Interpretive Statements SINUS TACHYCARDIA WITH FIRST DEGREE AV BLOCK LEFT ANTERIOR FASCICULAR BLOCK SIMILAR TO PRIOR ON SAME DATE Electronically Signed On 04-12-2018 0:37:43 EST by Nick Harper
[2018-04-12] MEDS: HumaLOG INSULIN (NovoLOG) PER UNIT SC SCH ×6 (01:00→20:32)
[2018-04-12] MEDS: PIPERACILLIN/TAZOBACTAM SOD 3.375 GM in D5W MINI-BAG PLUS 50 ML IV SCH ×4 (02:16→20:32)
[2018-04-12] MEDS: IPRATROPIUM 0.5MG/ALBUTEROL 2.5MG INH SOL UD 3ML (DUONEB)(J7620) NEB SCH ×7 (02:46→23:23)
[2018-04-12] MEDS: PROPOFOL 1,000 MG in APPROPRIATE DILUENT 1 EA IV SCH (04:01)
[2018-04-12] MEDS: NOREPINEPHRINE BITARTRATE 16 MG in D5W 484 ML IV SCH ×5 (04:03→22:27)
[2018-04-12 04:52] LABS: ABG HCO3 10.5 MEQ/L (22.0-26.0); ABG O2 SATURATION 95.7 % (95.0-99.0); ABG PARTIAL PRESSURE CO2 24.7 mmHg (35.0-45.0); ABG PARTIAL PRESSURE O2 90.7 mmHg (75.0-100.0); ABG STANDARD HCO3 13.1 MEQ/L (22.0-26.0); ABG TOTAL CO2 11.3 MEQ/L (23.0-31.0)
[2018-04-12 04:55] LABS: ABG pH (ARTERIAL) 7.247 UNITS (7.350-7.450)
[2018-04-12 04:58] LABS: HEMATOCRIT 40.4 % (42.0-52.0); HEMOGLOBIN 12.4 g/dl (13.5-17.5); MEAN CORPUSCULAR HGB CONC 30.7 g/dl (32.0-36.5); MEAN CORPUSCULAR VOLUME 81.5 fl (80.0-96.0); RED BLOOD COUNT 4.96 10^6/uL (4.30-6.10); WHITE BLOOD COUNT 17.5 10^3/uL (4.0-10.0)
[2018-04-12 04:59] LABS: PLATELET COUNT, AUTOMATED 83 10^3/uL (150-450)
[2018-04-12] MEDS: CALCIUM GLUCONATE 1,000 MG in NS 100 ML IV SCH ×3 (05:28→23:09)
[2018-04-12] MEDS: LEVOTHYROXINE 137MCG TABLET (0.137MG) PO SCH (05:36)
[2018-04-12 05:41] LABS: ALBUMIN 2.3 GM/DL (3.2-5.2); BILIRUBIN,TOTAL 3.1 MG/DL (0.2-1.0); CALCIUM LEVEL 7.6 MG/DL (8.8-10.2); CREATININE FOR GFR 2.03 MG/DL (0.70-1.30); GLOMERULAR FILTRATION RATE 34.6 (>42); MAGNESIUM LEVEL 2.3 MG/DL (1.8-2.4); PHOSPHORUS LEVEL 3.9 MG/DL (2.5-4.9); POTASSIUM SERUM 4.2 MEQ/L (3.5-5.1)
[2018-04-12 05:46] LABS: LYMPHOCYTES 4 % (16-52); METAMYELOCYTES 10 % (0-0); MYELOCYTES 2 % (0-0); NEUTROPHILS 78 % (35-75); PLATELET ESTIMATE DECREASED (NORMAL)
[2018-04-12 05:50] LABS: OVALOCYTES 1+
[2018-04-12 05:52] LABS: ANISOCYTOSIS 1+; POLYCHROMASIA 1+
[2018-04-12] MEDS ORDERED: HEPARIN SOD (PORCINE) 5000 UNITS/ML VIAL SQ SCH (06:00)
[2018-04-12 06:25] LABS: MB/CK RELATIVE INDEX 4.27 (< OR =4); TROPONIN I 1.7 NG/ML (< 0.10)
--- NOTE | 2018-04-12 07:39 | REP ---
Portable chest, 06:57 a.m., single AP view, the patient semi upright: Comparison is 04/11/2018. The endotracheal tube remains in satisfactory position with the tip above the roselyn. The nasogastric tube terminates in the abdominal left upper quadrant in satisfactory location, unchanged. The right IJ central venous catheter tip remains in satisfactory position at the confluence of the superior vena cava and right atrium, unchanged. There is cardiomegaly, unchanged. There is atelectasis inferiorly in the left lung as an interval change. The remainder of the lung maya are clear. Impression: New atelectasis inferiorly in the left lung. Cardiomegaly. The tubing oriented transversely across the upper abdomen on the prior study is no longer identified on the current study, possibly excluded at the inferior film margin. Electronically Signed by Garrett Argueta MD 04/12/2018 07:30 A
[2018-04-12] MEDS: ASPIRIN 81 MG ENTERIC TAB PO SCH (09:00)
[2018-04-12] MEDS: PANTOPRAZOLE 40MG INJ (PROTONIX) (C9113) IV SCH (09:48)
[2018-04-12] MEDS: VANCOMYCIN HCL 1,000 MG, VIAL MATE ADAPTER 1 EACH in D5W 250 ML IV SCH (09:48)
[2018-04-12] MEDS: CHLORHEXIDINE GLUCONATE 0.12 % 15ML UDC (PERIDEX ORAL RINSE) MT SCH ×2 (10:15→20:32)
[2018-04-12] MEDS: MIDAZOLAM INJ 2 MG/2 ML VIAL (J2250) IV PRN ×3 (10:54→22:14)
[2018-04-12 11:22] LABS: INR 2.51; PROTHROMBIN TIME 27.6 SECONDS (12.1-14.4)
[2018-04-12] MEDS: VANCOMYCIN HCL 500 MG in D5W MINI-BAG PLUS 100 ML IV SCH (12:03)
--- NOTE | 2018-04-12 12:16 | REP ---
CT of the chest without IV contrast to evaluate for pericardial/pleural effusions. Comparison are the chest CT dated 04/10/[address] dated 04/11/2018. On the current study there are large bilateral pleural effusions similar to the 02/08/2019 abdomen/ pelvis CT. There is atelectasis of the adjacent lung maya bilaterally. There is a pericardial effusion measuring up to 2.4 cm depth along the right lateral margin. There is a peritoneal tube entering from the midline of the upper abdomen with the tip extending into the abdominal left upper quadrant , similar to the abdomen CT of 02/08/2019. There is a tiny bubble of pneumoperitoneum at the tubing abdominal wall entrance site. There is an endotracheal tube and nasogastric tube. I suspect a small volume of ascites along the lateral margins of the liver and spleen. Impression: Bilateral pleural effusions with atelectasis of the adjacent lung maya. Pericardial effusion. Small volume of ascites lateral to the liver and spleen. Endotracheal tube, nasogastric tube and abdominal peritoneal tube. Electronically Signed by Garrett Argueta MD 04/12/2018 12:07 P
[2018-04-12 12:41] LABS: HEPATITIS A ANTIBODY IGM NEGATIVE (NEGATIVE); HEPATITIS B CORE ANTIBODY IGM NEGATIVE (NEGATIVE); HEPATITIS B SURFACE ANTIGEN NEGATIVE (NEGATIVE); HEPATITIS C VIRUS ABY INDEX 0.1 INDEX (<0.8)
[2018-04-12 13:41] LABS: APPEARANCE, BODY FLUID TURBID (CLEAR); PERITONEAL FL COLOR YELLOW (COLORLESS); SOURCE, BODY FLUID PERITONEAL
[2018-04-12] MEDS ORDERED: SODIUM BICARBONATE 8.4% INJ 50 ML SYRINGE As Ordered ONE ×2 (13:45→15:46)
[2018-04-12] MEDS ORDERED: BUPIVACAINE HCL 0.5% 10 ML VIAL As Ordered ONE (14:00)
[2018-04-12] MEDS ORDERED: BUPIVACAINE LIPOSOME/PF 1.3% 20ML VIAL (13.3MG/ML)(EXPAREL)(C9290 PER1MG) As Ordered ONE (14:00)
[2018-04-12] MEDS ORDERED: EPINEPHrine INJ 1 MG/ML 1ML AMP As Ordered ONE (14:43)
[2018-04-12] MEDS ORDERED: MIDAZOLAM INJ 2 MG/2 ML VIAL (J2250) As Ordered ONE (14:45)
--- NOTE | 2018-04-12 14:51 | RO ---
DATE OF PROCEDURE: 04/11/2018 PREPROCEDURE DIAGNOSES: Pericardial effusion with tamponade. POSTPROCEDURE DIAGNOSES: Pericardial effusion with tamponade, probable infectious pericarditis. PROCEDURE: Two pericardiostomy, pericardiocentesis with echo Doppler control. SURGEON: Dr. Jas Prasad FEED ADVISER: ANESTHESIA: FINDINGS: The pericardium was eventually drained of 200 mL of purulent material. This is sent for requisite cultures, along with bacteriology, cytology, chemistries, and hematologies. The patient's pressure immediately recovered after relieving him of his tamponade. The final record showed the fluid to be almost completely gone. DESCRIPTION OF PROCEDURE: Under satisfactory sedation being achieved with Diprivan, as the patient is currently ventilated, the patient's abdomen and subxyphoid was prepped and draped in the usual sterile fashion. Lidocaine was infiltrated in the skin, subcutaneous tissue and muscle. Under echocardiographic control, the distance between the probe and the pericardium was judged to be about 5 to 6 cm. A long appropriate needle was then placed subxyphoid, directed by the echocardiography probe. The pericardium was entered and cloudy serosanguineous fluid, more cloudy than sanguineous was removed and sent for cultures and sensitivities. A wire was placed and the tract was dilated. Two pericardiostomy was then placed with drainage of eventually 200 mL of the same fluid. Tube was secured to the chest with #3-0 silk sutures and thoroughly taped in place. The patient tolerated the procedure well.
[2018-04-12] MEDS ORDERED: SODIUM BICARBONATE 150 MEQ in D5W 1,000 ML IV SCH (15:00)
--- NOTE | 2018-04-12 15:29 | CR ---
DATE OF CONSULTATION: 04/11/2018 CONSULTATION NOTE: Patient seen at the urgent request of Dr. Childs of the intensive service for pericardial effusion and tamponade. Patient is intubated, unconscious and no active history can be obtained from the patient. History is gleamed from the medical record. Patient is a 73-year-old white male, who is status post double coronary bypass grafting procedure done via an anterior thoracotomy in January of 2018. He was visiting his , who is admitted to this hospital, when he began to become lightheaded and dizzy with increasing shortness of breath and chest pain. His had reported that he had shaking chills the night prior to his admission. It was associated with nausea and pleuritic chest pain. He was noted to be hypotensive in the emergency room (ER) with blood pressures around 70-50 systolic. His revascularization was prompted by a myocardial infarction. He also has known cirrhosis and also known hepatocellular carcinoma. He was judged to be in septic shock and was admitted. Dr. Childs saw him today. A CT scan done under angiographic protocol did not show pulmonary embolism (PE) but showed an inferior pericardial effusion. It is Dr. Childs's impression that the right ventricle is being compressed. This was demonstrated on echocardiography. He has a positive blood culture with gram-positive cocci. Speciation is pending. Gram-positive cocci were seen in chains. By the time I saw him, he was on multiple pressors. Electrocardiogram reviewed by myself showed severe compression of the right atrium and right ventricle with an inferior effusion. Dr. Greenwood from cardiology confirmed that impression. PAST MEDICAL ILLNESSES: 1. Coronary artery disease status post double bypass in January 2018. 2. Hepatocellular carcinoma with cirrhosis. 3. Esophageal varices. 4. Insulin-dependent diabetes mellitus. 5. Hypothyroidism. 6. Psoriasis. 7. Gastroesophageal reflux disease. 8. Diabetes. MEDICATIONS AT HOME: Include: - aspirin 81 mg every day - folic acid 1 mg by daily - Lasix 20 mg every day - Lantus insulin 60 units subcutaneous every morning and 40 units subcutaneous every evening - Synthroid 137 mcg every day - lisinopril 2.5 mg every day - magnesium oxide 400 mg every day - metformin 1000 mg twice a day - Protonix 40 mg every day - vitamin D 1000 units twice a day - Vytorin one every day ALLERGIES: INSULIN DETEMIR and PHENOL. PAST SURGICAL HISTORY: The above coronary artery bypass grafting (CABG) procedure, basal cell carcinoma of the scalp removed in 2018, and esophagogastroduodenoscopy (EGD) and colonoscopy in the past. HABITS: Smoked for about 2 years, between the age of [age]. He also drank between those ages but none since. He denied illicit drug abuse. TRAVEL HISTORY: Not obtainable. OCCUPATIONAL HISTORY: Not obtainable. FAMILY HISTORY: Not relevant to the acute situation, but is listed as his mother having diabetes and cardiovascular disease, a sister with breast cancer and another sister with dementia, and her father with diabetes. REVIEW OF SYSTEMS: Could not be obtained. PHYSICAL EXAMINATION: With the patient on angiotensin II and Levophed drips along with sodium bicarbonate drip, the patient's blood pressure is 123/60 with a heart rate of 110, who is on the ventilator over breathing it with a spontaneous respiratory rate near 30. He is on 5 cm of PEEP and 50% FiO2. Temperature is 97.0 earlier this morning. Eyes: Pupils equal and reactive. Patient is unconscious. Extraocular motions not assessed. Nose: Without deformity. Mouth: Shows the mucous membranes to be pink and moist. Neck is soft. There is no tenderness with him being sedated. There are no carotid bruits. He has 2+ carotid upstrokes. There is no thyromegaly. Trachea is midline. There is no subcutaneous emphysema. Lungs show bilateral breath sounds equally with expiratory rales and rhonchi associated with the ventilator. Percussion note is full to the diaphragm. Cardiac exam shows very distant heart sounds. I do not detect murmurs, clicks, gallops, or rubs. In addition, I do not hear a pericardial friction rub. Abdomen shows hypoactive but present bowel sounds. It is nontender. I do not appreciate hepatomegaly. Extremities: Show 2+ pretibial edema. No calf tenderness that I can elicit. He has an old saphenous vein wound on the right thigh, which has been noted to be draining in the past few days, which is dry and clean now. It does not look infected. Neurologic: Shows him to be unconscious. Psychiatric: Shows him to be unconscious. His white count this morning is 36.6 with a hemoglobin and hematocrit of 13.8 and 47.3 and a platelet count of 175. Differential shows 85% neutrophils, 7% bands, 2% lymphocytes, and 1% monocytes. There are no immature forms. No toxic granulations. His electrolytes this morning are essentially normal except for a markedly decreased total CO2 of 8. BUN and creatinine are 22 and 2.10, respectively. Glucose is 176 with a calcium of 8.1 and an albumin of 2.8. Ionized calcium is 3.8 with lower limit of normal of 4.5. AST and ALT are 470 and 296, respectively. His PT/INR are 23.9 and 2.09, respectively. PTT is 45 seconds. His chest x-ray shows an enlarged cardiac silhouette, which is globular in nature. Costophrenic angles are sharp. He is intubated with a tube in good position. He looks to have an accentuated right heart border. His CT angio yesterday shows a pericardial effusion inferiorly, which is best seen on the sagittal view. There is only a thin rim anteriorly, a much larger rim collection inferiorly. He also has an increased effusion on the right side, which looks to be compressing the right ventricle severely. I do not appreciate the liver lesion that has been described on the CT angio. There is no pulmonary embolism. As noted above, the sagittal view shows an increased inferior collection. I do not see appreciable mediastinal lymphadenopathy paratracheally. Superiorly in the upper region of the pericardium his effusion may have loculations and is heterogenous. IMPRESSION: 1. Septic shock. 2. Pericardial effusion, unknown origin at this point in time. It may be related to his sepsis. 3. Liver cirrhosis. 4. Reported hepatocellular carcinoma. 5. Diabetes. 6. Hypothyroidism. 7. Esophageal varices. 8. Gastroesophageal reflux disease. PLAN AND DISCUSSION: His most pressing problem now is his tamponade and hypotension. I am not completely convinced that the tamponade is the major contributor as it may be secondary to his sepsis. Nonetheless, we are obligated to relieve the tamponade as his right ventricle is severely compressed. I will therefore undertake a pericardiocentesis and two pericardiostomy percutaneously via the subxiphoid route. I will do under echo control. We will send the specimens for the requisite bacteriologies, chemistries, hematologies, and cytologies. Given his known diagnosis of hepatocellular carcinoma this could be malignant. This does not explain his underlying sepsis.
--- NOTE | 2018-04-12 15:42 | IPN ---
DATE: 04/12/2018 Mr. Collado continues to deteriorate. He is on Levophed at 26 mcg per minute with a blood pressure of only 80/47 via arterial line. His cap pressure is a little bit better of 104/56. His maximum temperature (t-max) is 99.8 over the last 24 hours. Heart rate is ranging between 128 to 118 in a sinus tachycardia with a respiratory rate of 33 overbreathing the ventilator on PRVC with a tidal volume of 450, FiO2 of 40%, PEEP of 5 with a ventilatory support rate of 27. The patient's intake and output for the past 24 hours has been recorded as 5404 in and 1123 out for a positivity of 4281 mL. He has put out 540 mL from the presumed pericardial tube, which now look as though it is in the abdomen. PHYSICAL EXAMINATION: He has bilateral coarse rhonchi throughout both inspiration and expiration. Percussion note is full to the diaphragm anteriorly and laterally. Heart sounds are still muffled and I do not appreciate murmurs, clicks, gallops or rubs. Abdomen is soft and silent without any bowel sounds. He is sedated. He has 2+ pretibial edema. I cannot state attorney calf tenderness. Neck is supple, as far as I can tell. There is no subcutaneous emphysema. I cannot tell if there is jugular venous distention. Mouth shows mucous membranes are pink and moist. Eyes show his pupils are equal and reactive. Neuro shows him to be sedated, but does move his extremities to pain. Psychiatric, shows him to be sedated and unconscious. His white count today is 17.5 with a hemoglobin and hematocrit of 12.4 and 40.4, respectively, with a platelet count of 83. Differential shows that he has 78% neutrophils, 6% bands, 4% lymphocytes, 10% metamyelocytes, 2 myelocytes. Toxic granulations are not reported. Electrolytes show a total CO2 of only 11, BUN and creatinine of 21 and 2.03. The patient remains on CVVH. Lactic acid is 16.6, even with CVVH and bicarbonate drip. Calcium is 7.6 with an albumin of 2.3. Troponins were 2.44 last night and now are 1.7. AST and ALT are 1948 and 1355, respectively. His pericardial fluid came back with a white count of 221,400. 82% of them were PMN. Glucose was 30 with an LDH of 3247. This looks like a purulent pericardial effusion. Abdominal CT done last night to evaluate his gut showed the pericardial tube was now outside the pericardium, most likely into the abdomen. Repeat chest CT showed recurrence of the pericardial effusion. The pericardial effusion had been completely drained with echocardiography after the tube was placed. This has now reaccumulated the effusion, which we think is still pus. IMPRESSION: 1. Septic pericarditis, source unknown, although it could be associated with his recent heart surgery 2 months ago done robotically. 2. Overwhelming sepsis. 3. Overwhelming acidosis. 4. Liver failure. 5. Known hepatocellular carcinoma. 6. Renal failure. PLAN/DISCUSSION: My intention was to send him back to [facility] where he had his heart surgery undertaken; however, there are no flights today because of the wind. I feel compelled that we need to drain this pus, and I am therefore going to take him to the operating room to do an open pericardiostomy. This is an incredibly dangerous procedure, fraught with potential disaster, including disruption of the ventricle. I have discussed all the problems with the family and they are willing to proceed. If we do not drain the pus, he will certainly . I have also made it very clear that even if we are successful this afternoon, he may have irreversible septic shock and still not recover.
--- NOTE | 2018-04-12 16:07 | CCN ---
DATE: 04/12/2018 NOTE: Mr. Collado remains critically ill with multiorgan system failure secondary to his severe sepsis and shock. He remains on vasopressor therapy with Levophed at 26 mcg. He has acute respiratory failure is secondary to metabolic acidemia leading to mechanical ventilation. He has cirrhosis and worsened liver function likely, in part, secondary to shock liver. He has increased abdominal distention secondary to likely worsening ascites. He has an ischemic right foot and has perhaps slightly improved perfusion. He had increase in his troponin I last evening, likely in part secondary to demand ischemia, though it is difficult to interpret in the setting of renal failure. He has acute renal failure requiring CRRT. He remains with metabolic acidemia and is still with a significant negative base excess. He had infective cardiac tamponade, which was drained, and was positive for gram-positive cocci in chains. He did not have a complete sedation holiday this morning because of his multiorgan failure; however, his sedation was lightened and he was moving all extremities. OBJECTIVE: PHYSICAL EXAMINATION: GENERAL: Mr. Collado is lying in bed, synchronous with the ventilator. VITAL SIGNS: Temperature 97.8, which is his maximum temperature (t-max), respiratory rate 30 to 32, pulse 1teen's, blood pressure 93/51, SpO2 94% on FiO2 of 0.4. HEENT: Anicteric, pupils equal, round, and reactive to light and accommodation (PERRLA). Nares are patent bilaterally. Oropharynx: Endotracheal tube in place. NECK: Right IJ site clean. Trachea midline. LYMPHATICS: Without cervical or supraclavicular lymphadenopathy. LUNGS: Symmetric excursion. Good air entry. No wheeze, rhonchi or crackle on tidal excursion. Diminished breath sounds posteriorly bilaterally. Normal I-to-E. Occasional abdominal muscle usage on exhalation, though not consistently. No retractions. CARDIOVASCULAR: Tachycardic. Regular rhythm. Normal S1, S2. No murmur, rub or gallop appreciated. ABDOMEN: Mild distention but still soft. Increased compared to yesterday. Absent bowel sounds. No masses appreciated. EXTREMITIES: Both upper extremities are cool. Palpable pulses. The left lower extremity is cool with palpable pedal pulses. The right lower extremity is colder than the left; however, there are dopplerable pulses. Foot is purple, actually improved in color from last evening when it was white. He remains with skin blotches on the right lower extremity, felt secondary to emboli. No clubbing. There is minimal edema around the ankles bilaterally. There is some edema in the hands bilaterally. NEUROLOGIC: He is moving all four extremities spontaneously. LABORATORY DATA: Complete blood count (CBC) from this morning showed a hemoglobin of 12.4, hematocrit 40.4, platelet count 83,000, white blood cell count 17,500 with a differential of 72% neutrophils, 6% bands, 4% lymphocytes. Chemistries show a sodium of 134, potassium 4.2, chloride 99, bicarbonate 11, anion gap 24, BUN 21, creatinine 2.03, glucose 121, calcium 7.6, ionized calcium of 4.1, phosphorous 3.9, magnesium 2.3, total bilirubin 3.1, AST 1948 (down from 2272), ALT 1355 (up from 991), alkaline phosphatase 80, CK 522, CK-MB 22, troponin I 1.7, total protein 5.0, albumin 2.3. INR is pending. PTT is 49. Arterial blood gas on [facility] with a tidal volume of 450, rate or 27, and a PEEP of 5 was 7.25/25/91 with a measured saturation of 96% and a base excess of -15. I reviewed his chest x-ray, as well as the report from earlier today. That x-ray actually showed mildly enlarged cardiac silhouette, normal pulmonary vascular shadows. There is bibasilar atelectasis, slightly greater on the left. Increased interstitial markings. Endotracheal tube is in good position. Yesterday's input and output was 5405 in and 1123 out, making him positive 4282. Thus far today, 1028 in and 275 out, making him positive 753. Microbiology: Blood cultures are positive times two for gram-positive cocci in chains. Pericardial fluid is positive for gram-positive cocci. The pathology from the pericardial fluids shows abundant neutrophils and no malignancy. ASSESSMENT: 1. Severe sepsis with shock secondary to gram-positive cocci in chains. 2. Severe metabolic acidemia. 3. Acute respiratory failure secondary to metabolic acidemia leading to mechanical ventilation. 4. Infective pericarditis leading to tamponade, status post drainage. 5. Cirrhosis. 6. Ischemic right foot secondary to presumed emboli from right femoral artery catheter. 7. Coagulopathy, "auto anticoagulation", likely in large part secondary to liver failure. 8. Elevated liver enzymes, likely in part secondary to shock liver. 9. Acute renal failure leading to CRRT. 10. Significantly elevated lactate, thought secondary to sepsis. He also will have slow clearance of the lactate because of renal failure and hepatic failure. 11. Diabetes mellitus, on sliding scale insulin. 12. Deep vein thrombosis (DVT) prophylaxis, coagulopathy with prolonged INR and PTT. 13. Stress ulcer prophylaxis, proton pump inhibitor. 14. Infectious disease. On vancomycin and Zosyn. Known gram-positive cocci in chains. 15. Nutrition. Currently nothing by mouth. RECOMMENDATIONS: 1. We had tried to anticoagulate him some because of his ischemic foot. We will hold that now as he is essentially auto anticoagulated. 2. I have spoken with Dr. Prasad regarding his pericardial tube, which appears to have been displaced and that we likely need further drainage of the pericardial fluid. 3. We will increase his PEEP by 2. Anticipate we will need to continue to increase it on a daily basis to compensate for the ascites. Anticipate ascites will continue to worsen essentially given third spacing. 4. Continue CRRT per nephrology. 5. Continue ischemic foot management per Dr. Robison. 6. We will not start tube feeds today, but we will consider that tomorrow, at least a trickle rate. 7. We will continue the current antibiotics, and we will consider narrowing when the culture results become available, although given his level of sickness and concern regarding a possible abdominal process as well, I am not going to narrow them for the immediate future. Critical care time was 90 minutes, not including procedure time. PAULINO
[2018-04-12 18:17] LABS: ABG BASE EXCESS -16.3 (-2.0-2.0); ABG HCO3 10.9 MEQ/L (22.0-26.0); ABG PARTIAL PRESSURE CO2 30.3 mmHg (35.0-45.0); ABG PARTIAL PRESSURE O2 93.2 mmHg (75.0-100.0); ABG STANDARD HCO3 12.1 MEQ/L (22.0-26.0); ABG TOTAL CO2 11.8 MEQ/L (23.0-31.0)
[2018-04-12 18:18] LABS: ABG pH (ARTERIAL) 7.173 UNITS (7.350-7.450)
--- NOTE | 2018-04-12 18:33 | REP ---
AP PORTABLE CHEST: 04/12/2018 AT 06:03 PM. Comparison: CT chest 04/12/2018, portable chest 04/12/2018 at 07:00 AM. today. Clinical history: Hypotension. Findings: The right jugular central catheter, endotracheal tube and nasogastric tubes are again seen, unchanged except that the endotracheal tube is now about 2.7 cm from the roselyn slightly pulled back. There are no II drains projecting over the upper abdomen lower chest, new finding since the previous portable chest. They were visible on the CT relate this morning. There is increased vascular congestion, some retrocardiac right and left lower lobe atelectasis or infiltrate. Effusions are suspected as well. No other new or finding or significant change. Impression: 1. Some worsening vascular congestion with bibasilar patchy atelectasis or infiltrate with consolidation in the retrocardiac lower lung zones and some effusions. 2. Lines and tubes unchanged from position on this morning's CT, the two upper abdominal drains are new since this morning's portable chest. Electronically Signed by Souleymane Vences MD 04/12/2018 06:25 P
[2018-04-12] MEDS ORDERED: VASOPRESSIN INJ 20 UNITS/ML VIAL As Ordered ONE (19:03)
[2018-04-12] MEDS: MORPHINE 4 MG/ML 1ML VIAL/SYRINGE (J2270) IV PRN (19:07)
[2018-04-12 21:57] LABS: HEMATOCRIT 37.9 % (42.0-52.0); HEMOGLOBIN 11.2 g/dl (13.5-17.5); MEAN CORPUSCULAR HEMOGLOBIN 24.5 pg (27.0-33.0); MEAN CORPUSCULAR HGB CONC 29.6 g/dl (32.0-36.5); MEAN CORPUSCULAR VOLUME 82.9 fl (80.0-96.0); RED BLOOD COUNT 4.57 10^6/uL (4.30-6.10); WHITE BLOOD COUNT 15.3 10^3/uL (4.0-10.0)
[2018-04-12 22:01] LABS: PLATELET COUNT, AUTOMATED 64 10^3/uL (150-450)
[2018-04-12 22:35] LABS: PH BODY FLUID 6.824 UNITS (NOT ESTABLISHED); SOURCE, BODY FLUID pH PERICARDIAL
[2018-04-12 22:39] LABS: PLEURAL FL COLOR BROWN (COLORLESS); SOURCE, BODY FLUID PLEURAL
[2018-04-12 22:40] LABS: APPEARANCE, BODY FLUID TURBID (CLEAR)
[2018-04-12 23:00] LABS: CALCIUM LEVEL 7.4 MG/DL (8.8-10.2); CREATININE FOR GFR 2.03 MG/DL (0.70-1.30); GLOMERULAR FILTRATION RATE 34.6 (>42); MAGNESIUM LEVEL 2.2 MG/DL (1.8-2.4); PHOSPHORUS LEVEL 3.7 MG/DL (2.5-4.9); POTASSIUM SERUM 3.7 MEQ/L (3.5-5.1)
[2018-04-12 23:11] LABS: ABG HCO3 12.7 MEQ/L (22.0-26.0); ABG O2 SATURATION 98.6 % (95.0-99.0); ABG PARTIAL PRESSURE CO2 26.2 mmHg (35.0-45.0); ABG PARTIAL PRESSURE O2 123.8 mmHg (75.0-100.0); ABG STANDARD HCO3 15.1 MEQ/L (22.0-26.0); ABG TOTAL CO2 13.6 MEQ/L (23.0-31.0); ABG pH (ARTERIAL) 7.305 UNITS (7.350-7.450)
[2018-04-13] VITALS (26 sets, daily range): BP systolic 100–146; BP diastolic 42–72
[2018-04-13] MEDS: MIDAZOLAM INJ 2 MG/2 ML VIAL (J2250) IV PRN ×4 (00:11→06:46)
[2018-04-13] MEDS: CALCIUM GLUCONATE 1,000 MG in NS 100 ML IV SCH ×3 (00:11→23:57)
[2018-04-13 00:23] LABS: AMYLASE, BODY FLUID 35 U/L (NOT ESTABLISHED); LDH, BODY FLUID 5212 U/L (NOT ESTABLISHED); SOURCE, BODY FLUID AMYLASE PERICARDIAL; SOURCE, BODY FLUID GLUCOSE PERICARDIAL; SOURCE, BODY FLUID LDH PERICARDIAL; SOURCE, BODY FLUID TOT PROTEIN PERICARDIAL; TOTAL PROTEIN, BODY FLUID 3.8 G/DL (NOT ESTABLISHED)
[2018-04-13] MEDS ORDERED: KCL 20MEQ IN 100ML SWI (KRUN) 20 MEQ in APPROPRIATE DILUENT 1 EA IV ONE ×2 (01:00)
[2018-04-13] MEDS: HumaLOG INSULIN (NovoLOG) PER UNIT SC SCH ×6 (01:01→21:15)
[2018-04-13] MEDS: PIPERACILLIN/TAZOBACTAM SOD 3.375 GM in D5W MINI-BAG PLUS 50 ML IV SCH ×4 (02:11→19:54)
[2018-04-13] MEDS: IPRATROPIUM 0.5MG/ALBUTEROL 2.5MG INH SOL UD 3ML (DUONEB)(J7620) NEB SCH ×6 (03:59→23:50)
[2018-04-13] MEDS: NOREPINEPHRINE BITARTRATE 16 MG in D5W 484 ML IV SCH ×3 (04:06→19:00)
[2018-04-13 04:46] LABS: INR 2.09; PROTHROMBIN TIME 23.9 SECONDS (12.1-14.4)
[2018-04-13 04:47] LABS: PARTIAL THROMBOPLASTIN TIME 44.4 SECONDS (25.4-37.6)
[2018-04-13] MEDS: LEVOTHYROXINE 137MCG TABLET (0.137MG) PO SCH (05:20)
[2018-04-13 05:35] LABS: ABG BASE EXCESS -8.1 (-2.0-2.0); ABG HCO3 15.8 MEQ/L (22.0-26.0); ABG O2 SATURATION 97.1 % (95.0-99.0); ABG PARTIAL PRESSURE O2 88.6 mmHg (75.0-100.0); ABG STANDARD HCO3 17.9 MEQ/L (22.0-26.0); ABG TOTAL CO2 16.6 MEQ/L (23.0-31.0); ABG pH (ARTERIAL) 7.369 UNITS (7.350-7.450)
[2018-04-13] MEDS: PROPOFOL 1,000 MG in APPROPRIATE DILUENT 1 EA IV SCH ×2 (07:11→23:58)
--- NOTE | 2018-04-13 07:45 | CR ---
DATE OF CONSULTATION: 04/11/2018 Visually was intact and consult on oral ref REASON FOR CONSULTATION: His sepsis and question etiology / rule out intra-abdominal source as needed. BRIEF HISTORY OF PRESENT ILLNESS: The patient is a 73-year-old male who presents with a recent CABG in January and essentially was diagnosed with liver cancer as well but presents with weakness, dizziness, rigors and chills and hypotensive came into the emergency room septic appearing and underwent evaluation with a lactic acidosis and started to and during workup was found to have a pericardial effusion which was felt to be possibly infected and thus underwent pericardial drainage today but since the drain is still has been septic appearing with a lactic acidosis. And given his lactic acidosis is concerning at this time and asked for my input on his intra-abdominal assessment. PAST MEDICAL HISTORY: Significant for history of insulin-dependent diabetes mellitus, hypothyroidism, basal cell carcinoma cirrhosis and liver cancer and esophageal varices, psoriasis GE reflux disease, hypertension, hyperlipidemia, coronary artery disease. HOME MEDICATIONS PRIOR TO ADMISSION: Aspirin, folic acid, Lasix, insulin, Synthroid, lisinopril, magnesium, metformin, Protonix and vitamin D. PHYSICAL EXAMINATION: Patient is intubated, sedated on high doses of Levophed at this point and endotracheal tube is in place. Lungs reveal aeration and clear anteriorly although diminished significantly posteriorly. Heart is distant. Abdomen is soft, obese, nontender, nondistended and not appreciating any significant abdominal exam findings at this time. Extremities reveal some significant ischemia of the right lower extremity but he does have some pulses distally with some Doppler flow distally on the right lower leg and vascular as been evaluating him concerning this issue left leg is not as ischemic appearing it is mostly just cooler consistent with his sepsis presentation and liver function tests were abnormal this morning. The creatinine was elevated this morning and more recently his white count has bumped 13,000. IMPRESSION AND PLAN: The patient has sepsis like acidosis unknown etiology at this point. From a general surgery standpoint I am not seeing an intra-abdominal source, although unfortunately the CT scan was performed this afternoon really did not have any by mouth contrast and given that it is quite difficult to assess the bowel. He does have some ascites that was not there previous earlier today. He has increasing pleural effusions that went yesterday and otherwise there may be the some minimal thickening of the small bowel but I am not impressed and not seeing any edema in the mesentery or inflammatory changes that would be concerning far as a possible source and thus at this time given all of his medical issues. However, a do feel that he will most likely developed some ileus associated with hypotension and his pressors that he is on in addition, then the may affect his liver function as well as kidney function significantly. Supportive care is warranted. I would avoid enteral feeds at this point and with his liver function abnormalities. I would avoid TPN for some time as well until the liver function tests seem to improve. Please contact me if you would like this the patient reevaluated. Otherwise I will sign off for now.
--- NOTE | 2018-04-13 08:55 | REP ---
AP PORTABLE CHEST: 04/13/2018. Comparison: Multiple studies on 04/12/2018 and 04/11/2018. Clinical history: Intubated. Findings: Endotracheal tube, nasogastric tube, right jugular central catheter and two pericardial drains are again seen and unchanged. Cardiac silhouette unchanged with some left atrial and ventricular enlargement suspected. There is increased right base subsegmental atelectasis or infiltrate and dense consolidative opacity in the retrocardiac left lower lobe again seen with some more peripheral hazy atelectatic changes in the left base. The aorta is tortuous. Bones unchanged. Impression: 1. Lines and tubes unchanged with mediastinal cardiac silhouettes stable. 2. Increasing right base hazy atelectasis, infiltrate and/or effusion with some more peripheral increased patchy atelectasis in the left lung. The dense retrocardiac left lower lobe consolidative opacity is unchanged. Electronically Signed by Souleymane Vences MD 04/13/2018 09:29 A
[2018-04-13] MEDS: ASPIRIN 81 MG ENTERIC TAB PO SCH (09:04)
[2018-04-13] MEDS: PANTOPRAZOLE 40MG INJ (PROTONIX) (C9113) IV SCH (09:04)
[2018-04-13] MEDS: CHLORHEXIDINE GLUCONATE 0.12 % 15ML UDC (PERIDEX ORAL RINSE) MT SCH ×2 (09:05→21:15)
[2018-04-13] MEDS: VANCOMYCIN HCL 1,000 MG, VIAL MATE ADAPTER 1 EACH in D5W 250 ML IV SCH (09:15)
[2018-04-13] MEDS: VANCOMYCIN HCL 500 MG in D5W MINI-BAG PLUS 100 ML IV SCH (10:36)
[2018-04-13 10:43] LABS: IONIZED CALCIUM 4.2 MG/DL (4.5-5.3)
[2018-04-13 10:46] LABS: HEMATOCRIT 35.3 % (42.0-52.0); HEMOGLOBIN 11.1 g/dl (13.5-17.5); MEAN CORPUSCULAR HEMOGLOBIN 24.7 pg (27.0-33.0); MEAN CORPUSCULAR HGB CONC 31.4 g/dl (32.0-36.5); MEAN CORPUSCULAR VOLUME 78.6 fl (80.0-96.0); RED BLOOD COUNT 4.49 10^6/uL (4.30-6.10); WHITE BLOOD COUNT 15.4 10^3/uL (4.0-10.0)
[2018-04-13 11:07] LABS: PLATELET COUNT, AUTOMATED 38 10^3/uL (150-450)
--- NOTE | 2018-04-13 11:37 | IPN ---
DATE: 04/13/2018 This is now postoperative day 1 for Mr. Collado status post tube pericardiostomy of his pericardium yesterday, done openly. He looks as though he has had an improvement in his physiologic state. His vital signs show a T-max of 98.0, with a heart rate that his ranging between 111 and 108 in a sinus rhythm, who is still on the ventilator with a respiratory rate of 32, overbreathing the ventilator with a set ventilatory support rate of 27. He is on PRVC with a set tidal volume of 450, and PEEP of 7 with an FiO2 of 70%, which has now been decreased to 50. His blood pressures are now ranging between 100/56 to 147/60. His Levophed has been decreased overnight. On physical examination, he has rhonchus breath sounds on both sides during both inspiration and expiration on the ventilator. Cardiac exam still shows distant heart sounds. I hear no murmurs, clicks, gallops or rubs, however. I cannot feel his PMI. Abdomen is soft, not. Bowel sounds are still absent. Extremities showed 2+ pretibial edema. No calf tenderness. He is however, sedated. His right leg shows necrotic skin areas throughout consistent with showered emboli. He has Doppler pulses on the dorsalis pedis on the left and right sides. Neck is supple. There is no subcutaneous emphysema. Trachea is midline. There is no jugular venous distention. Mouth shows his mucous membranes to be pink and moist. He is intubated. Eyes show both pupils equal and reactive. Neuro shows the patient to be completely sedated, although the nurses do tell me that he will move his arms and legs. His psychiatric shows him to be completely sedated and unconscious. His blood gases have improved overnight with a pH of 7.36, pCO2 of 28, and a pO2 of 88, for a base excess of only -8.1. This is an improvement from base excesses yesterday that were in the -16 range. His white count is pending. His chemistries also pending this morning. Lactic acid is also pending. His PTT is 46.9 with a PT/INR of 23.9 and 2.05. His chest x-ray done portably still shows an increased CT ratio. The pericardial tube looks to be in good place. He looks to have a right pleural effusion in the costophrenic angle. ET tube was in good place. He has some cephalization of vessels. I see some patchy infiltrates on both sides, although I am not sure of their significance. IMPRESSION: 1. Septic pericarditis and mediastinitis, status post coronary artery surgery two months ago. 2. Sepsis. 3. Left leg ischemia with showered emboli. 4. Liver failure. 5. Known hepatocellular carcinoma. 6. Renal failure. PLAN/DISCUSSION: I will keep his pericardial tube on suction today. I am somewhat gratified that his physiologic status has improved and that we have now drained his pericardium. His pericardial fluid from yesterday is mislabeled peritoneal, but had 373,000 white cells, 92% of which are PMNs. Chemistries show glucose of 149 with pH of 6.82 and an LDH of 5212, all consistent with purulence. He remains on vancomycin and piperacillin.
[2018-04-13 11:43] LABS: CALCIUM LEVEL 7.6 MG/DL (8.8-10.2); CREATININE FOR GFR 1.7 MG/DL (0.70-1.30); GLOMERULAR FILTRATION RATE 42.5 (>42); PHOSPHORUS LEVEL 2.4 MG/DL (2.5-4.9); POTASSIUM SERUM 3.5 MEQ/L (3.5-5.1)
[2018-04-13] MEDS: CALCIUM GLUCONATE 1,000 MG in D5W MINI-BAG PLUS 100 ML IV SCH ×2 (12:05→13:45)
--- NOTE | 2018-04-13 12:42 | CCN ---
DATE: 04/13/2018 NOTE: Mr. Collado remains critically ill with multiorgan system failure. Yesterday afternoon he went to the operating room for a pericardial window. He did well during the surgery. He still remains hypotensive and on Levophed, though that has been decreased to 20 mcg/min from 26 mcg/min. He has acute respiratory failure secondary to severe sepsis with shock leading to mechanical ventilation. He remains on CRRT. His arterial blood gas was improved this morning. He remains with abdominal distention. He has an ischemic right foot. He remains with metabolic acidemia. He is off continuous sedation and is receiving as needed Versed. He received a dosage this morning around 7:00 a.m. because he was tachypneic and moving one of his arms. He does not purposefully move for me and I cannot arouse him with sternal rub. OBJECTIVE: PHYSICAL EXAMINATION: GENERAL: Mr. Collado is lying in bed, synchronous with the ventilator. VITAL SIGNS: Temperature 96.6 with a T-max of 98, respiratory rate 26, blood pressure 111/58 on NIBP, and 121/46 on arterial line. SpO2 96% on FiO2 of 0.4. HEENT: Mild icterus. Pupils equal, round, and reactive to light and accommodation (PERRLA). Nares patent bilaterally. Moist mucosa. Oropharynx ET tube and OG tube in place. NECK: Supple, right IJ in place and site is clean. LYMPHATICS: No cervical or supraclavicular lymphadenopathy. LUNGS: Symmetric excursion. Good air entry. No wheeze, rhonchi or crackle on tidaled excursion. Diminished breath sounds posteriorly bilaterally. Normal I:E. No accessory muscle usage or retractions. CARDIOVASCULAR: Tachycardic. Regular rhythm. Normal S1, S2. No murmur, rub or gallop appreciated. ABDOMEN: Mild distention. Absent bowel sounds, still soft. No hepatosplenomegaly or masses appreciated. EXTREMITIES: 2+ edema around the ankles bilaterally. Trace to 1+ pretibial edema and upper extremity edema. No clubbing or cyanosis. Right leg is still cool, cooler than the left leg. There is purpuric changes over the right foot, but overall, the color continues to improve. The pulses are palpable. LABORATORY DATA: Chemistries are still pending with the exception of an ionized calcium of 4.2. CBC showed a hemoglobin of 11.1, hematocrit of 35.3, platelet count 38,000, white blood cell count 15,400. Arterial blood gas on a [facility] with tidal volume of 450, rate 27, PEEP of 7, and an FiO2 of 0.7 was 7.37/28/88, with measured saturation of 97.1 and base excess of -8.1. Peritoneal fluid sent yesterday showed white blood cell count of 373,000 and an RBC of less than 2, it was 7.2% mononuclear cells, and 93% polymorphonuclear cells. Microbiology: The gram stain of the peritoneal fluid showed many WBCs and a few gram positive cocci in pairs. The gram stain from the pericardial fluid from 04/12 showed many WBCs and many gram positive cocci in pairs and chains. The wound culture from the right leg has grown Methicillin-resistant Staphylococcus aureus (MRSA). The nasal swab showed MRSA. The two blood cultures on admission on 04/10/2018 showed Strep dysgalactiae Sp Equisim. I reviewed his chest x-ray as well as the report from earlier today. That x-ray showed an enlarged cardiac silhouette, normal pulmonary vascular showed. There remain bibasilar atelectasis with loss of the left hemidiaphragm. ET tube is in good position. Yesterday's intake and output was 2901 in and 738 out, making positive 2163. Thus far today, 108 in and 295 out, making him positive 713. IMPRESSION: 1. Severe sepsis with shock secondary to Strep dysgalactiae Sp Equisim. 2. Severe metabolic acidemia. 3. Acute respiratory failure secondary to metabolic acidemia leading to mechanical ventilation. 4. Infective pericarditis leading to tamponade, status post pericardial window 04/12/2018. 5. Ischemic right foot secondary to presumed emboli from right femoral artery catheter. 6. Coagulopathy secondary to "auto anticoagulation", likely in large part secondary to liver failure and renal failure. 7. Elevated liver functions in part secondary to shock liver. 8. Acute renal failure leading to CRRT. 9. Diabetes mellitus on sliding scale insulin. 10. Cirrhosis. 11. Hepatocellular carcinoma, definitive treatment being planned at [facility]. 12. Deep vein thrombosis (DVT) prophylaxis. He has a coagulopathy. 13. Stress ulcer prophylaxis, on proton pump inhibitor. 14. Infectious disease. On vancomycin and Zosyn. Thus far, primary blood cultures have grown Strep dysgalactiae Sp Equisim. He also has a wound culture showing MRSA that was superficial. On vancomycin and Zosyn. 15. Nutrition. Nothing by mouth. RECOMMENDATIONS: 1. Will increase PEEP to 2 in anticipation of worsening ascites for the immediate future to allow us to offset the abdominal distention. 2. Will decrease the set respiratory rate as his acidemia has improved. 3. Will continue the current antibiotics until the final cultures are available from the pericardial fluid and then narrow spectrum. 4. Will likely start trickle feeds tomorrow if he is dong well. 5. Will ask nursing to try to minimize sedation usage and if used for concerns or agitation to make sure we document response as increased rate would be expected if his sepsis would change. 6. Will continue to monitor the PTT. If he starts to correct his "auto anticoagulation" will then add heparin at a low dose to keep the PTT to 40-50 because of his ischemic foot. 7. Appreciate the consulting services that are managing his CRRT, pericardial effusion, and ischemic foot. Critical care time was 45 minutes, not including procedure time. PAULINO
--- NOTE | 2018-04-13 12:59 | CCN ---
DATE: 04/11/2018 I was called to emergently evaluate Mr. Collado secondary to a cold and mottled right lower extremity. I had met Mr. Collado earlier in the evening, and he is critically ill with severe sepsis with shock. The source of his sepsis appeared to be pericardial effusion, which was drained. His blood cultures and his pericardial fluid cultures were showing gram positive cocci with the blood cultures showing this to be in chains. He had a right lower extremity scar that was the site of a saphenous vein graft for his two-vessel coronary artery bypass graft (CABG) done in 01/2018. He had reported that that had been draining some yellowish fluid a couple of days ago. Ultrasound did not show any findings suggestive of abscess. He had a right femoral dialysis catheter and a right femoral arterial catheter. When I was contacted, we ordered both a right lower extremity venous Doppler and arterial Doppler study. When I arrived, his leg was mottled up to the region just below the arterial catheter. The catheter was discontinued. His skin had mottling regions and of his toes were white. Doppler pulses could be found in the posterior tibial and eventually the dorsalis pedis pulse, though that was not initially heard. His foot was very cold. He also had not had significant improvement in his lactic acid despite having drainage of the presumed site of infection as well as being on appropriate antibiotics and CRRT. On his examination, he had absent bowel sounds. His abdomen was soft. It was not possible to assess pain as he was intubated and sedated. Because of concern that this may have been related to being on angiotensin II, that was discontinued and he was placed on Levophed, initially at a rate of 10. This was increased to 20, but as of 9 or 10 tonight, we were able to start decreasing it slowly. I spoke to Dr. Robison, who came in and evaluated the patient. Concern in the appearance of the leg was for possible emboli related to the arterial catheter. Because of his lack of bowel sounds and his significant lactic acidemia (14.5 at this time), decision was made to take him down to CT scan for an abdomen, pelvic, and lower extremity CT angiogram. I accompanied Dr. Robison down for the study. Overall, the perfusion on the scan was good with the only region that showed diminishment was in the suspected region around the toes. There was questionable thickening of the bowel, and because of the concern regarding possible bowel infarction, at least in a couple of small regions that may have been from an embolic phenomenon, general surgery was consulted. Dr. Mistry evaluated the patient and did not feel that it was likely he had a bowel infarct. By this point, his toes, perfusion had increased slightly, meaning they were now somewhat purple instead of white, though still white on the anterior surface. Dr. Robison suggested placing him on heparin. I checked his coagulation studies before that was done, and his INR has slowly increased, likely secondary to worsened liver function. His liver failure may also explain, in part, why his lactate is not decreasing significantly as it cannot clear lactate. His platelets were low, but this likely more consistent with sepsis, and it was felt reasonable to start him on a heparin drip without a bolus with a goal of only a PTT 40-50. ASSESSMENT/NEW PROBLEMS THIS EVENIN. Ischemic right foot. 2. Mottling of the right lower extremity, thought likely secondary to emboli from the femoral artery catheter. 3. Suspected worsened liver function. 4. Increased PT, again, most likely secondary to worsened liver function. PLAN: 1. Will place him on heparin drip starting at 1000 with a goal of 40-50. 2. Will recheck liver function. 3. Labs, potassium and magnesium were checked after returning from CT scan as he had been off CRRT for several hours. 4. Bicarbonate drip started, given the length of time off CRRT, at least until CRRT again functioning. This is a recommendation nephrology made, which was prior to going down to CT scan. CRITICAL CARE TIME: 3-1/2 hours, not including procedure time. PAULINO
[2018-04-13 13:06] LABS: ALBUMIN 2.2 GM/DL (3.2-5.2); BILIRUBIN,DIRECT 3.3 MG/DL (0.0-0.2); BILIRUBIN,TOTAL 4.3 MG/DL (0.2-1.0); TOTAL PROTEIN 4.8 GM/DL (6.4-8.2)
[2018-04-13] MEDS: KCL 20MEQ IN 100ML SWI (KRUN) 20 MEQ in APPROPRIATE DILUENT 1 EA IV SCH ×8 (13:13→23:58)
[2018-04-13] MEDS: HEPARIN 1,000 UNITS/ML 10ML VIAL (FOR RADIOLOGY& DIALYSIS ONLY) IV PRN (13:44)
[2018-04-13] MEDS ORDERED: SODIUM PHOSPHATE INJ 20 MMOL in D5W 250 ML IV ONE (14:00)
--- NOTE | 2018-04-13 14:55 | CCN ---
DATE OF SERVICE: 04/13/2018 Mr. Collado is seen this morning in intensive care unit on his bedside. He was admitted with septic shock and acute renal failure. He has been on continuous renal replacement therapy (CRRT) due to oliguric renal failure and severe metabolic acidosis. He had very high level of lactic acid with persistent acidosis which seems to be improving now with aggressive CRRT therapy. The patient remains unresponsive, and he still on the pressors and ventilator. This morning, his Levophed dose has been cut down a bit. He has minimal urine output with a Resendez catheter in place. On physical examination, the patient is intubated and poorly responsive to all kind of stimuli. His temperature is 96.6 degrees Fahrenheit, heart rate is about 110 per minute and respiratory rate 20s per minute on the ventilator. Blood pressure 111/55 mmHg and oxygen saturation is 97% on 50% FIO2. Intake and output records from yesterday showed total intake 2901 and output 738. His head is atraumatic. Endotracheal tube is in place. Neck is supple, and jugular venous distention (JVD) is elevated. Chest tube is in place following his pericardial window. Heart sounds are tachycardiac. Lungs with bilateral air entry but diminished breath sounds at bases. Abdomen is soft, and bowel sounds are not audible. There is no palpable organomegaly. Extremities: Have no cyanosis or clubbing. Lower extremity edema is at least 1+. Neurologically, he is unresponsive. Today's laboratories show a sodium level 135, potassium 3.5, CO2 up to 20, BUN 13, and creatinine 1.70. Glucose 194, calcium 7.6, phosphorus is 2.4, and magnesium 2.0. His blood gas this morning showed a pH of 7.36, PCO2 28, pO2 88.6, and bicarbonate 18. Chest x-ray done this morning was reviewed, which showed bilateral infiltrates and effusions, more prominent on the right than the left. PROBLEMS: 1. Septic shock. The patient remains on pressors. However, his requirement for pressors is improving, and we will continue. He is already receiving broad-spectrum antibiotics, including vancomycin and Zosyn. 2. Severe metabolic acidosis related to septic shock and acute renal failure. His acidosis has improved significantly today, and we will continue with the CRRT. 3. Acute renal failure. The patient remains anuric and is currently on CRRT. At present, he is still hemodynamically unstable and will continue with CRRT. His orders are being renewed. 4. Abnormal electrolytes. The patient has low potassium, low calcium, and low phosphorus, and slightly low sodium. Electrolytes are being replaced and order being renewed for CRRT, which is addressing his electrolytes. 5. Nutrition. At present, the patient is not receiving any nutrition, and I have discussed with Dr. Parsons. Plan is to start tube feeding either later today or tomorrow, and we will hold off on total parenteral nutrition (TPN). 6. Pericardial effusion. The patient is status post pericardial window, and his hemodynamics have improved since the drainage of pericardial effusion. 7. Peripheral arterial disease. The patient has ischemic patches on his right lower extremity and is being followed by Dr. Robison. At this point, no urgent intervention is indicated as per Dr. Robison. 26 minutes of critical care time spent on the bedside. No procedures were done during this time.
[2018-04-13] MEDS ORDERED: SODIUM CHLORIDE 0.9% INJ 10 ML SYR IV PRN (16:45)
[2018-04-13] MEDS ORDERED: SLF 3 ML SYR IV PRN (16:45)
[2018-04-13 21:42] LABS: HEMATOCRIT 34.3 % (42.0-52.0); HEMOGLOBIN 10.9 g/dl (13.5-17.5); IONIZED CALCIUM 4.3 MG/DL (4.5-5.3); MEAN CORPUSCULAR HEMOGLOBIN 24.5 pg (27.0-33.0); MEAN CORPUSCULAR HGB CONC 31.8 g/dl (32.0-36.5); MEAN CORPUSCULAR VOLUME 77.1 fl (80.0-96.0); RED BLOOD COUNT 4.45 10^6/uL (4.30-6.10)
[2018-04-13 21:47] LABS: PLATELET COUNT, AUTOMATED 34 10^3/uL (150-450)
[2018-04-13] MEDS: SODIUM CHLORIDE 0.9% INJ 10 ML SYR IV SCH (22:00)
[2018-04-13] MEDS: SLF 3 ML SYR IV SCH (22:00)
[2018-04-13 22:12] LABS: CALCIUM LEVEL 7.5 MG/DL (8.8-10.2); CREATININE FOR GFR 1.49 MG/DL (0.70-1.30); GLOMERULAR FILTRATION RATE 49.5 (>42); MAGNESIUM LEVEL 2.1 MG/DL (1.8-2.4); POTASSIUM SERUM 3.4 MEQ/L (3.5-5.1)
[2018-04-13] MEDS: MORPHINE 4 MG/ML 1ML VIAL/SYRINGE (J2270) IV PRN (22:22)
[2018-04-14] VITALS (27 sets, daily range): BP systolic 71–138; BP diastolic 44–66; O2SAT 96
[2018-04-14] MEDS ORDERED: SODIUM PHOSPHATE INJ 30 MMOL in D5W 250 ML IV SCH (01:00)
[2018-04-14] MEDS: HumaLOG INSULIN (NovoLOG) PER UNIT SC SCH ×6 (01:09→23:52)
[2018-04-14] MEDS: NOREPINEPHRINE BITARTRATE 16 MG in D5W 484 ML IV SCH ×2 (02:22→17:52)
[2018-04-14] MEDS: PIPERACILLIN/TAZOBACTAM SOD 3.375 GM in D5W MINI-BAG PLUS 50 ML IV SCH ×4 (02:22→19:57)
[2018-04-14] MEDS: IPRATROPIUM 0.5MG/ALBUTEROL 2.5MG INH SOL UD 3ML (DUONEB)(J7620) NEB SCH ×6 (04:20→23:55)
[2018-04-14 05:28] LABS: BASO % 0.3 % (0.0-1.0); EOS % 0.2 % (0.0-3.0); HEMATOCRIT 34.7 % (42.0-52.0); HEMOGLOBIN 11.2 g/dl (13.5-17.5); LYMPH # 0.7 10^3/uL (1.5-4.5); LYMPH % 4.5 % (24.0-44.0); MEAN CORPUSCULAR HEMOGLOBIN 24.7 pg (27.0-33.0); MEAN CORPUSCULAR HGB CONC 32.3 g/dl (32.0-36.5); MEAN CORPUSCULAR VOLUME 76.4 fl (80.0-96.0); MONO # 0.7 10^3/uL (0.0-0.8); MONO % 4.6 % (0.0-5.0); NEUTROPHILS # 13.6 10^3/uL (1.8-7.7); NEUTROPHILS % 89.4 % (36.0-66.0); RED BLOOD COUNT 4.54 10^6/uL (4.30-6.10); WHITE BLOOD COUNT 15.2 10^3/uL (4.0-10.0)
[2018-04-14 05:30] LABS: PLATELET COUNT, AUTOMATED 29 10^3/uL (150-450)
[2018-04-14] MEDS: SODIUM CHLORIDE 0.9% INJ 10 ML SYR IV SCH ×3 (05:33→22:00)
[2018-04-14] MEDS: SLF 3 ML SYR IV SCH ×3 (05:33→22:00)
[2018-04-14] MEDS: LEVOTHYROXINE 137MCG TABLET (0.137MG) PO SCH (05:33)
[2018-04-14 05:52] LABS: ABG BASE EXCESS -2.6 (-2.0-2.0); ABG HCO3 20.4 MEQ/L (22.0-26.0); ABG O2 SATURATION 94.6 % (95.0-99.0); ABG PARTIAL PRESSURE CO2 29.9 mmHg (35.0-45.0); ABG PARTIAL PRESSURE O2 75.8 mmHg (75.0-100.0); ABG STANDARD HCO3 22.3 MEQ/L (22.0-26.0); ABG TOTAL CO2 21.3 MEQ/L (23.0-31.0); ABG pH (ARTERIAL) 7.452 UNITS (7.350-7.450)
[2018-04-14] MEDS: MORPHINE 4 MG/ML 1ML VIAL/SYRINGE (J2270) IV PRN ×5 (05:54→22:17)
[2018-04-14 06:00] LABS: ALBUMIN 2.1 GM/DL (3.2-5.2); BILIRUBIN,DIRECT 3.9 MG/DL (0.0-0.2); BILIRUBIN,TOTAL 5.1 MG/DL (0.2-1.0); TOTAL PROTEIN 4.7 GM/DL (6.4-8.2)
[2018-04-14] MEDS: ASPIRIN 81 MG ENTERIC TAB PO SCH (08:17)
[2018-04-14] MEDS: CHLORHEXIDINE GLUCONATE 0.12 % 15ML UDC (PERIDEX ORAL RINSE) MT SCH ×2 (08:17→19:57)
[2018-04-14] MEDS: PANTOPRAZOLE 40MG INJ (PROTONIX) (C9113) IV SCH (08:17)
[2018-04-14] MEDS: VANCOMYCIN HCL 1,000 MG, VIAL MATE ADAPTER 1 EACH in D5W 250 ML IV SCH (09:15)
[2018-04-14 10:21] LABS: IONIZED CALCIUM 4.3 MG/DL (4.5-5.3)
[2018-04-14 10:23] LABS: HEMATOCRIT 32.8 % (42.0-52.0); HEMOGLOBIN 10.5 g/dl (13.5-17.5); MEAN CORPUSCULAR HEMOGLOBIN 24.5 pg (27.0-33.0); MEAN CORPUSCULAR VOLUME 76.6 fl (80.0-96.0); RED BLOOD COUNT 4.28 10^6/uL (4.30-6.10); WHITE BLOOD COUNT 13.2 10^3/uL (4.0-10.0)
[2018-04-14 10:34] LABS: PARTIAL THROMBOPLASTIN TIME 42.9 SECONDS (25.4-37.6)
[2018-04-14] MEDS: VANCOMYCIN HCL 500 MG in D5W MINI-BAG PLUS 100 ML IV SCH (10:36)
[2018-04-14 10:46] LABS: CALCIUM LEVEL 7.5 MG/DL (8.8-10.2); CREATININE FOR GFR 1.34 MG/DL (0.70-1.30); GLOMERULAR FILTRATION RATE 55.9 (>42); MAGNESIUM LEVEL 2.1 MG/DL (1.8-2.4); PHOSPHORUS LEVEL 2.4 MG/DL (2.5-4.9); POTASSIUM SERUM 3.7 MEQ/L (3.5-5.1)
[2018-04-14 10:47] LABS: PLATELET COUNT, AUTOMATED 24 10^3/uL (150-450)
[2018-04-14] MEDS ORDERED: KCL 20MEQ IN 100ML SWI (KRUN) 20 MEQ in APPROPRIATE DILUENT 1 EA IV ONE ×4 (11:00→23:15)
--- NOTE | 2018-04-14 11:07 | REP ---
AP PORTABLE CHEST: 04/14/2018. COMPARISON: 04/13/2018, 04/12/2018, 04/11/2018. CLINICAL HISTORY: Intubated. Right jugular central catheter, unchanged. Endotracheal tube about 3.5 cm from the roselyn. Nasogastric tube curving through the mediastinum. The two drains overlying the upper abdomen/lower chest on the previous study. Only one of these is certainly identified today, and I suspect pericardial drain. Worsening vascular congestion and infiltrates. Layering effusion suspected. This is continued progression over the last few days of these lung findings. Electronically Signed by Souleymane Vences MD 04/14/2018 11:26 A
[2018-04-14 11:29] LABS: INR 1.74; PROTHROMBIN TIME 20.6 SECONDS (12.1-14.4)
[2018-04-14] MEDS: CALCIUM GLUCONATE 1,000 MG in D5W MINI-BAG PLUS 100 ML IV SCH ×2 (11:31→13:11)
[2018-04-14] MEDS ORDERED: SODIUM PHOSPHATE INJ 20 MMOL in D5W 250 ML IV ONE (13:00)
[2018-04-14] MEDS: PROPOFOL 1,000 MG in APPROPRIATE DILUENT 1 EA IV SCH (17:45)
[2018-04-14 22:09] LABS: IONIZED CALCIUM 4.4 MG/DL (4.5-5.3)
[2018-04-14 22:13] LABS: HEMATOCRIT 33.5 % (42.0-52.0); HEMOGLOBIN 10.5 g/dl (13.5-17.5); MEAN CORPUSCULAR HEMOGLOBIN 24.4 pg (27.0-33.0); MEAN CORPUSCULAR HGB CONC 31.3 g/dl (32.0-36.5); MEAN CORPUSCULAR VOLUME 77.7 fl (80.0-96.0); RED BLOOD COUNT 4.31 10^6/uL (4.30-6.10); WHITE BLOOD COUNT 9.4 10^3/uL (4.0-10.0)
[2018-04-14 22:14] LABS: PLATELET COUNT, AUTOMATED 25 10^3/uL (150-450)
[2018-04-14 22:40] LABS: CALCIUM LEVEL 7.4 MG/DL (8.8-10.2); CREATININE FOR GFR 1.53 MG/DL (0.70-1.30); PHOSPHORUS LEVEL 2.8 MG/DL (2.5-4.9); POTASSIUM SERUM 3.8 MEQ/L (3.5-5.1)
[2018-04-15] VITALS (31 sets, daily range): BP systolic 85–101; BP diastolic 48–59
[2018-04-15] MEDS: MORPHINE 4 MG/ML 1ML VIAL/SYRINGE (J2270) IV PRN ×4 (00:49→16:36)
[2018-04-15] MEDS: PIPERACILLIN/TAZOBACTAM SOD 3.375 GM in D5W MINI-BAG PLUS 50 ML IV SCH ×4 (02:57→20:38)
[2018-04-15 04:19] LABS: INR 1.55; PROTHROMBIN TIME 18.8 SECONDS (12.1-14.4)
[2018-04-15 04:20] LABS: PARTIAL THROMBOPLASTIN TIME 47.2 SECONDS (25.4-37.6)
[2018-04-15 04:33] LABS: ALBUMIN 1.9 GM/DL (3.2-5.2); BILIRUBIN,DIRECT 4.4 MG/DL (0.0-0.2); BILIRUBIN,TOTAL 5.7 MG/DL (0.2-1.0); VANCOMYCIN RANDOM 20.6 UG/ML
--- NOTE | 2018-04-15 04:47 | PHACANCOPD ---
PHARMACY VANCOMYCIN DOSING Pt Demographics Demographics Patient Age:73 , Weight:111.000 , Gender: male Adjusted Body Weight Events Past 24 Hours Events Past 24 Hours: NO: Dialysis, Diuretic Therapy, Change in CrCl, Fever, Elevation in WBC, Pending Diagnostics, Pending Procedures, Other Vancomycin Vancomycin indication: SEPSIS Vancomycin Target Ranges: 15-20 mcg/ml Vancomycin Load Y/N: Yes Load Dose Date Time Vancomycin Load Dose: 2GM Date: 04/10/18 Time: 21:00 Vancomycin Dose Date: 04/15/18. Current Vancomycin Dose: [1500mg q24h] Intermittent Dosing?: No Labs Labs Item Value Date Time White Blood Count 9.4 10^3/uL 04/14/182153 Glomerular Filtration Rate 48.0 04/14/182153 Creatinine 1.53 MG/DL H 04/14/182153 Blood Urea Nitrogen 13 MG/DL 04/14/182153 Random Vancomycin Level 20.6 UG/ML 04/15/18 0359 Vital Signs Label Value Date Time Patient Temperature 97.5 degrees F 04/15/18 0400 Temperature Source Temporal 04/15/18 0400 Micro Microbiology 04/10/18 Blood Culture - Final, Complete Strep Dysgalactiae Sp Equisim 04/10/18 Blood Culture - Final, Complete Strep Dysgalactiae Sp Equisim 04/12/18 Gram Stain - Final, Resulted 04/12/18 Body Fluid Culture, Resulted Pending 04/12/18 Acid Fast Stain, Received Pending 04/12/18 Mycobacterial Culture, Received Pending 04/12/18 Fungal Smear, Received Pending 04/12/18 Fungal Culture, Received Pending 04/12/18 Gram Stain - Final, Resulted 04/12/18 Body Fluid Culture, Resulted Pending 04/12/18 Anaerobic Culture - Final, Resulted 04/11/18 Gram Stain - Final, Complete 04/11/18 Body Fluid Culture - Final, Complete Escherichia Coli Strep Dysgalactiae Sp Equisim 04/11/18 Acid Fast Stain, Received Pending 04/11/18 Mycobacterial Culture, Received Pending 04/11/18 MRSA Screen - Final, Complete Staph.aureus Methicillin Resis 04/10/18 Respiratory Virus Panel (PCR) ([facility]ATH[facility]IN) - Final, Complete 04/11/18 Gram Stain - Final, Complete 04/11/18 Wound Culture - Final, Complete Staph.aureus Methicillin Resis Strep Agalactiae Group B Creatinine Clearance Date:04/15/18. Creatinine Clearance: [ ~41 ml/min]. Assessment and Plan Maintaining Current Dose?: Yes Reason for dose change: No Dose Change Pharmacist Note Pharmacist Note Date: 04/15/18. PharmD note:Random level of 20.6 extrapolates to a trough of 16- 17 which is within target range. Will continue current dosing. Will continue to monitor and make adjustments as needed. MARYAN ERICKSON PHARMACY Apr 15, 2018 04:47
[2018-04-15] MEDS: IPRATROPIUM 0.5MG/ALBUTEROL 2.5MG INH SOL UD 3ML (DUONEB)(J7620) NEB SCH ×6 (05:17→23:38)
[2018-04-15] MEDS: SODIUM CHLORIDE 0.9% INJ 10 ML SYR IV SCH ×3 (05:21→20:38)
[2018-04-15] MEDS: LEVOTHYROXINE 137MCG TABLET (0.137MG) PO SCH (05:21)
[2018-04-15] MEDS: HumaLOG INSULIN (NovoLOG) PER UNIT SC SCH ×3 (05:21→17:40)
[2018-04-15 05:50] LABS: ABG BASE EXCESS -1.2 (-2.0-2.0); ABG HCO3 22.6 MEQ/L (22.0-26.0); ABG O2 SATURATION 97.4 % (95.0-99.0); ABG PARTIAL PRESSURE CO2 34.7 mmHg (35.0-45.0); ABG PARTIAL PRESSURE O2 95.4 mmHg (75.0-100.0); ABG STANDARD HCO3 23.5 MEQ/L (22.0-26.0); ABG TOTAL CO2 23.7 MEQ/L (23.0-31.0); ABG pH (ARTERIAL) 7.432 UNITS (7.350-7.450)
[2018-04-15] MEDS: SLF 3 ML SYR IV SCH ×3 (06:00→20:39)
[2018-04-15] MEDS: NOREPINEPHRINE BITARTRATE 16 MG in D5W 484 ML IV SCH ×2 (06:15→22:11)
[2018-04-15] MEDS: CHLORHEXIDINE GLUCONATE 0.12 % 15ML UDC (PERIDEX ORAL RINSE) MT SCH ×2 (08:15→20:38)
[2018-04-15] MEDS: PANTOPRAZOLE 40MG INJ (PROTONIX) (C9113) IV SCH (08:15)
--- NOTE | 2018-04-15 08:38 | REP ---
Chest one-view HISTORY: Intubation Comparison: 04/14/2018 Increased density is present in the lower lobes consistent with atelectasis or infiltrates. Small bilateral pleural effusions are present. The cardiac silhouette is enlarged. The pulmonary vasculature is prominent. An ET tube ,central line and NG tube are present. A drainage tube is present overlying the left upper abdomen and lower left hemithorax. The pulmonary vasculature is normal in appearance. Impression: 1. Bibasilar atelectasis or infiltrates. 2. Small bilateral effusions. 3. Cardiomegaly. Electronically Signed by Elijah Cr MD 04/15/2018 08:29 A
[2018-04-15] MEDS: ASPIRIN 81 MG CHEW TABLET NG SCH (09:09)
[2018-04-15] MEDS: VANCOMYCIN HCL 1,000 MG, VIAL MATE ADAPTER 1 EACH in D5W 250 ML IV SCH (09:29)
[2018-04-15] MEDS: PROPOFOL 1,000 MG in APPROPRIATE DILUENT 1 EA IV SCH ×2 (09:39→22:10)
[2018-04-15 10:13] LABS: IONIZED CALCIUM 4.4 MG/DL (4.5-5.3)
[2018-04-15 10:14] LABS: HEMATOCRIT 33.2 % (42.0-52.0); HEMOGLOBIN 10.4 g/dl (13.5-17.5); MEAN CORPUSCULAR HEMOGLOBIN 24.5 pg (27.0-33.0); MEAN CORPUSCULAR HGB CONC 31.3 g/dl (32.0-36.5); MEAN CORPUSCULAR VOLUME 78.1 fl (80.0-96.0); RED BLOOD COUNT 4.25 10^6/uL (4.30-6.10); WHITE BLOOD COUNT 10.8 10^3/uL (4.0-10.0)
[2018-04-15 10:15] LABS: PLATELET COUNT, AUTOMATED 26 10^3/uL (150-450)
[2018-04-15] MEDS: GASTROGRAFIN SOLUTION 30ML PO SCH ×2 (10:50→11:16)
[2018-04-15 10:53] LABS: ALBUMIN 1.9 GM/DL (3.2-5.2); BILIRUBIN,DIRECT 4.5 MG/DL (0.0-0.2); BILIRUBIN,TOTAL 5.7 MG/DL (0.2-1.0); CALCIUM LEVEL 7.8 MG/DL (8.8-10.2); CREATININE FOR GFR 1.53 MG/DL (0.70-1.30); PHOSPHORUS LEVEL 2.2 MG/DL (2.5-4.9); POTASSIUM SERUM 4.2 MEQ/L (3.5-5.1); TOTAL PROTEIN 4.9 GM/DL (6.4-8.2)
[2018-04-15] MEDS ORDERED: ISOVUE-370 76% 100ML VIAL (Q9967) As Ordered ONE (10:57)
--- NOTE | 2018-04-15 11:05 | RO ---
DATE OF PROCEDURE: 04/11/2018 PREPROCEDURE DIAGNOSIS: Hypotension, need for accurate blood pressure monitoring. POSTPROCEDURE DIAGNOSIS: Hypotension, need for accurate blood pressure monitoring. PROCEDURE: Left radial arterial line placement. SURGEON: Dr. Parsons RN TRANSPORT: ANESTHESIA: DESCRIPTION OF PROCEDURE: The procedure was considered emergent. New Site procedure was followed. Following this, the left radial region was prepped and draped in a sterile fashion. The artery was punctured on the first stick. The wire threaded easily and the arterial line was placed by the modified Seldinger technique. Good waveform. It was sutured in place with #0 silk. Tolerated well. MTDD
[2018-04-15] MEDS: VANCOMYCIN HCL 500 MG in D5W MINI-BAG PLUS 100 ML IV SCH (11:24)
--- NOTE | 2018-04-15 13:19 | REP ---
CT of the abdomen and pelvis with bowel contrast, without IV contrast: Comparison is 04/11/2018. The visualized lower lung maya demonstrate bilateral pleural effusions similar appearance to the comparison study. There is compression atelectasis of the lower lobes adjacent to the effusions, as previously. There is pericardial thickening versus small pericardial effusion measuring 6 mm in depth. There is an apparent tail tube entering the upper abdomen in the midline extending into the abdominal left upper quadrant, unchanged. There is ascites surrounding the liver and extending inferiorly in the right colic gutter into the pelvis, not significantly changed in volume. There is wall thickening of the ascending colon, transverse colon and descending colon compatible with colitis in the appropriate clinical setting. There is wall thickening of distal small bowel loops compatible with enteritis in the appropriate clinical setting. There is no pneumoperitoneum. The gallbladder, pancreas and spleen are unremarkable. The adrenals and kidneys are unremarkable. Abdominal aorta is unremarkable. There is no bowel obstruction or distension. Pelvis: There is ascites as described. There is a venous catheter in the right femoral and iliac veins, unchanged. There is a Resendez catheter in the bladder, the bladder is collapsed. No adenopathy or mass. There is circumferential edema in the subcutaneous fat compatible with anasarca. Impression: Bilateral pleural effusions. Small pericardial effusion versus pericardial thickening. Peritoneal dialysis catheter. Right eight femoral vein/iliac vein catheter as described. Ascites. Wall thickening of large and small bowel, compatible with colitis and enteritis in the appropriate clinical setting. Resendez catheter. No pneumoperitoneum. Anasarca. Electronically Signed by Garrett Argueta MD 04/15/2018 01:11 P
[2018-04-15] MEDS ORDERED: CALCIUM GLUCONATE 1,000 MG in NS 100 ML IV ONE ×4 (15:00→19:00)
[2018-04-15] MEDS ORDERED: SODIUM PHOSPHATE INJ 30 MMOL in D5W 500 ML IV ONE (16:00)
--- NOTE | 2018-04-15 16:26 | RO ---
DATE OF PROCEDURE: 04/12/2018 PREPROCEDURE DIAGNOSIS: Purulent pericarditis. POSTPROCEDURE DIAGNOSIS: Purulent pericarditis. PROCEDURE: Open tube pericardiostomy. Xiphoidectomy and partial sternectomy. SURGEON: Dr. Jas Prasad WAITER/WAITRESS ECONOMY CLASS: ANESTHESIA: FINDINGS: I could not get into the anterior pericardium as it was adherent to the underlying heart. I could, with an explorer needle, find the purulent pocket way posteriorly. I, therefore, placed a thoracostomy tube within the collection. 400 mL of purulent fluid was eluded from the pericardium. DESCRIPTION OF PROCEDURE: Under satisfactory general anesthesia, the patient was prepped and draped in the usual sterile fashion. A perixiphoid incision was made and carried down through the subcutaneous tissue. Linea alba was identified and divided. The xiphoid was removed, and the distal sternum was rongeured smooth. Adhesive tissue was removed from beneath the sternum. There was copious amounts of pericardial fat. This was all eventually removed so that I could see the pericardium. I then carefully dissected the pericardium but could not get under it to expose the heart as it was densely adherent. This was normally expected as the patient had previous heart surgery 2 months ago. I was able to find a pocket of pus within the pericardium posteriorly and by staying right next to the diaphragm and aiming the needle into the pericardium, I was able to withdraw fluid. Indeed, after placing the needle, a wire was placed, and the tract was dilated. A pericardiostomy tube was then placed and brought through a separate stab wound incision. I drained 400 mL of purulent fluid, which was sent for the requisite chemistries, cytologies, hematologies and bacteriologies. A Adolfo-Villarreal drain was left behind the sternum. The linea alba was then closed with a running #0 Vicryl suture, the subcutaneous tissue by #3-0 Vicryl suture, and the skin by #3-0 Monocryl subcuticular suture. Exparel was injected into the incision. The patient tolerated the procedure well and left the operating room in satisfactory condition for the recovery room.
[2018-04-15] MEDS ORDERED: SODIUM CHLORIDE 23.4% INJ 200 MEQ, SODIUM ACETATE INJ 40 MEQ, POTASSIUM CHLORIDE INJ 20... IV SCH ×10 (18:00)
[2018-04-15] MEDS ORDERED: HumaLOG INSULIN (NovoLOG) PER UNIT SC SCH (18:00)
[2018-04-15] MEDS ORDERED: FAT EMULSION IV 20% 500 ML IV SCH (18:00)
[2018-04-15 18:16] LABS: IONIZED CALCIUM 4.4 MG/DL (4.5-5.3)
[2018-04-15 18:22] LABS: HEMATOCRIT 31.5 % (42.0-52.0); HEMOGLOBIN 10.1 g/dl (13.5-17.5); MEAN CORPUSCULAR HEMOGLOBIN 24.8 pg (27.0-33.0); MEAN CORPUSCULAR HGB CONC 32.1 g/dl (32.0-36.5); MEAN CORPUSCULAR VOLUME 77.2 fl (80.0-96.0); RED BLOOD COUNT 4.08 10^6/uL (4.30-6.10); WHITE BLOOD COUNT 11.1 10^3/uL (4.0-10.0)
[2018-04-15 18:28] LABS: PLATELET COUNT, AUTOMATED 36 10^3/uL (150-450)
[2018-04-15 18:44] LABS: CALCIUM LEVEL 7.9 MG/DL (8.8-10.2); CREATININE FOR GFR 1.78 MG/DL (0.70-1.30); GLOMERULAR FILTRATION RATE 40.3 (>42); MAGNESIUM LEVEL 2.1 MG/DL (1.8-2.4); PHOSPHORUS LEVEL 3.4 MG/DL (2.5-4.9); POTASSIUM SERUM 4.3 MEQ/L (3.5-5.1)
--- NOTE | 2018-04-15 19:25 | CCN ---
DATE: 04/14/2018 NOTE: Mr. Collado remains critically ill with multiorgan system failure. He remains hypotensive and is on Levophed at 8 mcg/min. He has acute respiratory failure secondary to septic shock shock leading to mechanical ventilation. He remains on CRRT. At the present time they are pulling fluid to keep him even. His arterial blood gas is improved this morning. He has some abdominal distention. He has an ischemic right foot. He has been off continuous sedation and he has received morphine. He has been moving both arms spontaneously and appeared to be playing an air guitar last evening per nursing. He is not following commands. OBJECTIVE: PHYSICAL EXAMINATION: GENERAL: Mr. Collado is lying in bed synchronous with the ventilator. VITAL SIGNS: Temperature 96.5, pulse 102, blood pressure 104/56 noninvasive, SpO2 96 on an FiO2 of 0.4. HEENT: Mild icterus. Pupils are 2 mm and sluggish. Nares: Patent bilaterally. Moist mucosa. Oropharynx: Endotracheal tube and orogastric tube are in place. NECK: Supple. Right IJ site clean. LYMPHATICS: Without cervical, supraclavicular lymphadenopathy. LUNGS: Symmetric excursion. Good air entry. Diminished breath sounds at the bases bilaterally. No wheeze, rhonchi or crackles. Normal I:E. No accessory muscle usage or retractions. CARDIOVASCULAR: Tachycardic. Regular rhythm. Normal S1, S2. No murmur, rub or gallop appreciated. ABDOMEN: Absent bowel sounds. Mild distention but still soft. No masses appreciated. EXTREMITIES: Cool. 2+ pedal edema and 1+ pretracheal edema bilaterally. The right leg is still discolored with big toe. Dopplerable pedal pulses. He still has pruritic lesions on the leg, foot and lower haywood. Ischemic skin changes on the right leg. No clubbing or cyanosis. LABORATORY DATA: Complete blood count (CBC) from this morning showed a hemoglobin of 10.5, hematocrit 32.8, platelet count 24,000. White blood cell count 13,200. Chemistries showed a sodium of 134, potassium 3.7, chloride 102, bicarbonate 22, anion gap 10, BUN 13, creatinine 1.3, glucose 196, calcium 7.5, ionized calcium 4.3, phosphorous 2.4, magnesium 2.1. Liver functions are pending. Albumin 2.1. INR 1.74, PTT 42.9. Arterial blood gas on [facility] with tidal volume of 450, rate of 20, PEEP of 9 and FiO2 of 0.4 was 7.45/30/76 with measured saturation of 95% and a base excess of -2.6. Yesterday his input and output was 3192 in and 370 out making him positive 2722. Thus far today 840 in and 40 out making him positive 805. Weight 111 kg. Both blood cultures from 04/10/2018 are showing Streptococcus dysgalactiae sp. equisimilis. The nares swab from 04/11/2018 is showing methicillin resistant Staphylococcus aureus (MRSA). Pleural fluid from 04/11/2018 is showing Escherichia (E) coli and Streptococcus dysgalactiae sp. equisimilis and the wound culture from 04/11/2018 is showing MRSA and Streptococcus agalactiae group B. I reviewed his chest x-ray, as well as the report from earlier today. It showed an enlarged cardiac silhouette, normal pulmonary vascular shadows. The endotracheal tube is in good position. There is a pericardial drain. There are increased interstitial markings and bilateral atelectasis and effusions. IMPRESSION: 1. Septic shock secondary to Streptococcus dysgalactiae sp. equisimilis. Slow clinical improvement. 2. Metabolic acidemia, improving with CRRT. 3. Acute respiratory failure secondary to metabolic acidemia leading to mechanical ventilation. 4. Infective pericarditis leading to tamponade. Status post pericardial window 04/12/2018. 5. Ischemic right foot secondary to presumed emboli from femoral artery catheter. 6. Coagulopathy secondary to "auto anticoagulation". Likely in large secondary to liver failure. His INR has normalized. 7. Elevated liver functions, in part secondary to cirrhosis but also in part secondary to shock liver. 8. Acute renal failure and metabolic acidemia leading to CRRT. 9. Diabetes mellitus. On sliding scale. 10. Cirrhosis. 11. Thrombocytopenia. This in part secondary to sepsis and consumption. He also had thrombocytopenia on presentation in January. 12. Hepatocellular carcinoma, definitive treatment being planned at [facility]. " 13. Deep vein thrombosis (DVT) prophylaxis. He has a coagulopathy secondary to "auto anticoagulation". His INR has normalized. His PTT remains elevated. We can not add thromboembolic compression stockings (TEDS) at this time. 14. Stress ulcer prophylaxis. On proton pump inhibitor. 15. Infectious disease. On vancomycin and Zosyn. Thus far, cultures have shown Streptococcus dysgalactiae sp. equisimilis, which is thought to be the predominant infective agents. He also has methicillin resistant Staphylococcus aureus (MRSA) and now Escherichia (E) coli . 16. Nutrition. Nothing by mouth. RECOMMENDATIONS: 1. Start "trickle" feeds with Nepro at 10 mL an hour. If he tolerates them after 6 hours, we will increase that 25 mL and reassess tomorrow. 2. We will continue current antibiotics waiting for final cultures from the pericardial effusion that was drained intraoperatively on 04/12/2018, as well as peritoneal culture. 3. We will request records from [facility]. His daughter informs me that he had workup for his thrombocytopenia at that facility. We do not want to repeat the workup, but also need to know expectations. 4. I will send a heparin induced thrombocytopenia (HIT) antibody. 5. We will not transfuse platelets unless his platelet count is less than 20 or he is actively bleeding. Critical care time was 45 minutes, not including procedure time. [facility]
--- NOTE | 2018-04-15 22:55 | IPN ---
DATE: 04/12/2018 SUBJECTIVE: The patient is seen and examined this morning at the bedside in the intensive care unit. He remains in multiorgan failure secondary to septic shock, continues on pressor support with Levophed at 26 mcg and continues on aggressive prescription of continuous veno-venous hemodialysis (CVVHD) with no fluid removal. The patient's daughter is at the bedside, and I had extensive discussion with her regarding his clinical condition. Labs show coagulopathy and shock liver. He was off CVVHD for about 2-1/2 hours last night when his right leg was noted to have color changes to purple and dusky, and he was subsequently evaluated by vascular surgery and went for CT angiogram with no intervention deemed necessary. His lactic acid remains greater than 15 over the past 24 hours despite high-dose continuous renal replacement therapy (CRRT). REVIEW OF SYSTEMS: Unable to obtain secondary to clinical condition. VITAL SIGNS: Temperature 96.3, pulse 117, blood pressure 94/50, respiratory rate 32, saturating 94% on 40% FiO2. Intake yesterday was 5.4 liters. Urine output yesterday was 480 mL. The chest tube drained 540 mL. Net positive 4.2 liters. Weight on the bed scale today is 104.1 kg, which is increased from prior. General: The patient is seen intubated but off sedation in the intensive care unit (ICU). He is noted to have spontaneous movement of his extremities. He is breathing above the ventilator. His pupils are round and reactive to light. His endotracheal tube and orogastric tube (OGT) are in place. The central line in the right internal jugular (IJ) has a dressing. His neck veins are difficult to assess. Lungs show coarse air entry bilaterally. There is tachypnea. He is breathing above the ventilator. There is no wheeze or rhonchus. Cardiac: He is tachycardic, S1, S2. There is a chest tube in place. Abdomen: Somewhat distended but soft. I do not appreciate bowel sounds. Genitourinary: Shows Resendze catheter with minimal urine. Extremities: His distal extremities are all cool to touch. The right lower extremity is significantly cool with a purple mottled appearance that extends up to the knee. There is 1+ edema bilaterally. Neurologic: The patient is noted to be breathing above the vent and noted to be spontaneously moving all four extremities, including the right lower extremity, which has color changes. There is a femoral dialysis catheter, which is presently in use. LABORATORY: White count 15, hemoglobin 11.2, platelets 64. Sodium 133, potassium 3.7, bicarbonate 15, lactic acid 16.6, repeat lactic acid 13.7. Microbiology: Blood cultures are positive times two for gram-positive cocci in chains. The pericardial fluid is positive for gram-positive cocci. IMAGING: The patient is noted to have a CT angiogram on 04/11/2018 of the abdominal aorta and the lower extremities, which showed anasarca, a boggy appearance of the right colon, and minimal atherosclerotic changes in both leg arteries with three vessel run-off to nonfilling of the dorsalis pedis artery in both legs. ASSESSMENT: 1. Oligoanuric renal failure in the setting of severe septic shock with active bacteremia, with ongoing severe anion gap metabolic acidosis with lactic acid of greater than 15 over the past 24 hours despite high-dose CRRT. The patient continues on CVVHD without fluid removal given that his pressor requirements are almost maximal; Levophed currently at 26 mcg. His effluent dose if 27 mL per kg per hour, which is slightly above the target goal of 20 to 25 mL per kg per hour. A higher effluent dose was selected as patient has occasionally been off of CRRT to go for various tests and procedures, and also because of the overwhelming metabolic acidosis. I have instructed the critical care nurses to try and keep him in even fluid balance if his pressor requirement is less than 10 mcg of Levophed and not to remove fluid for pressor requirement greater than 10 mcg of Levophed. 2. Severe anion gap metabolic acidosis related to septic shock, acute renal failure, shock liver. His lactic acid has been around 15 or more for the past 24 hours. His serum bicarbonate remains low. Continue with aggressive CRRT prescription. When he is off the floor for various tests and procedures, please run bicarbonate based fluids. His severe acidemia despite CRRT portends a poor prognosis and is a sign of the severity of his underlying sepsis. 3. Septic shock. Pressor dependent, gram-positive cocci in chains and blood culture and gram-positive cocci in pericardial fluid. Status post chest tube. On broad-spectrum antimicrobials per the primary team. Still with significant pressor requirement and software development engineer team is considering further diagnostic testing. His right leg also has significant color changes and purple mottled appearance. CT angiogram is noted. 4. Shock liver, transaminitis with associated coagulopathy, worsening thrombocytopenia complicating his picture, and he receiving CRRT without any systemic anticoagulation in view of the same. 5. Abnormal electrolytes. He is continued on every 12 hour labs and has orders written for potassium, calcium, magnesium, and phosphorus supplementation as indicated.
[2018-04-16] VITALS (30 sets, daily range): BP systolic 80–125; BP diastolic 50–70; O2SAT 96
[2018-04-16] MEDS: HumaLOG INSULIN (NovoLOG) PER UNIT SC SCH ×4 (00:29→18:02)
[2018-04-16] MEDS: PIPERACILLIN/TAZOBACTAM SOD 3.375 GM in D5W MINI-BAG PLUS 50 ML IV SCH ×4 (02:26→19:51)
[2018-04-16] MEDS: IPRATROPIUM 0.5MG/ALBUTEROL 2.5MG INH SOL UD 3ML (DUONEB)(J7620) NEB SCH ×5 (04:14→20:10)
[2018-04-16] MEDS: PROPOFOL 1,000 MG in APPROPRIATE DILUENT 1 EA IV SCH ×3 (04:55→16:30)
[2018-04-16 05:42] LABS: IONIZED CALCIUM 4.6 MG/DL (4.5-5.3)
[2018-04-16] MEDS: SODIUM CHLORIDE 0.9% INJ 10 ML SYR IV SCH ×3 (05:47→22:00)
[2018-04-16] MEDS: SLF 3 ML SYR IV SCH ×3 (05:47→19:52)
[2018-04-16 05:51] LABS: ABG BASE EXCESS -2.7 (-2.0-2.0); ABG HCO3 21.4 MEQ/L (22.0-26.0); ABG O2 SATURATION 96.3 % (95.0-99.0); ABG PARTIAL PRESSURE CO2 34.5 mmHg (35.0-45.0); ABG PARTIAL PRESSURE O2 84.1 mmHg (75.0-100.0); ABG STANDARD HCO3 22.2 MEQ/L (22.0-26.0); ABG TOTAL CO2 22.4 MEQ/L (23.0-31.0)
[2018-04-16 05:53] LABS: HEMOGLOBIN 10.4 g/dl (13.5-17.5); MEAN CORPUSCULAR HEMOGLOBIN 25.7 pg (27.0-33.0); MEAN CORPUSCULAR HGB CONC 32.5 g/dl (32.0-36.5); MEAN CORPUSCULAR VOLUME 79.2 fl (80.0-96.0); RED BLOOD COUNT 4.04 10^6/uL (4.30-6.10); WHITE BLOOD COUNT 9.3 10^3/uL (4.0-10.0)
[2018-04-16 05:54] LABS: PLATELET COUNT, AUTOMATED 29 10^3/uL (150-450)
[2018-04-16] MEDS ORDERED: CALCIUM GLUCONATE 1,000 MG in NS 100 ML IV ONE ×2 (06:00→19:30)
[2018-04-16 06:16] LABS: ANISOCYTOSIS 2+; EOSINOPHILS 4 % (0-5); LYMPHOCYTES 12 % (16-52); MONOCYTES 10 % (0-8); NEUTROPHILS 74 % (35-75); PLATELET ESTIMATE MARKED DECREASE (NORMAL); POLYCHROMASIA 1+; TEAR DROP CELLS 1+
[2018-04-16 06:33] LABS: ALBUMIN 1.8 GM/DL (3.2-5.2); BILIRUBIN,DIRECT 5.1 MG/DL (0.0-0.2); BILIRUBIN,TOTAL 6.5 MG/DL (0.2-1.0); CALCIUM LEVEL 7.8 MG/DL (8.8-10.2); CREATININE FOR GFR 1.77 MG/DL (0.70-1.30); GLOMERULAR FILTRATION RATE 40.6 (>42); MAGNESIUM LEVEL 1.9 MG/DL (1.8-2.4); TOTAL PROTEIN 4.9 GM/DL (6.4-8.2)
[2018-04-16] MEDS ORDERED: MAG SULF 1GM/100ML (MAG RUN) 1 GM in APPROPRIATE DILUENT 1 EA IV ONE (06:45)
[2018-04-16] MEDS: NOREPINEPHRINE BITARTRATE 16 MG in D5W 484 ML IV SCH ×16 (08:00→18:19)
[2018-04-16] MEDS: ASPIRIN 81 MG CHEW TABLET NG SCH (08:10)
[2018-04-16] MEDS: PANTOPRAZOLE 40MG INJ (PROTONIX) (C9113) IV SCH (08:10)
[2018-04-16] MEDS: CHLORHEXIDINE GLUCONATE 0.12 % 15ML UDC (PERIDEX ORAL RINSE) MT SCH ×2 (08:10→19:52)
[2018-04-16 08:48] LABS: VANCOMYCIN RANDOM 22.1 UG/ML
--- NOTE | 2018-04-16 08:55 | REP ---
Chest one-view HISTORY: Intubated Comparison: 04/15/2018 Increased density is present in the lower lobes consistent with atelectasis or infiltrates. Small bilateral pleural effusions are present. The cardiac silhouette is enlarged. The pulmonary vasculature is prominent. The pulmonary vasculature is normal in appearance. An ET tube, NG tube and central line are present. A drainage tube is present overlying the left upper quadrant and lower left hemithorax. Impression: 1. Bibasilar atelectasis or infiltrates unchanged compared to the previous study. 2. Small bilateral pleural effusions unchanged compared to the previous study. 3. Cardiomegaly. Electronically Signed by Elijah Cr MD 04/16/2018 08:46 A
[2018-04-16] MEDS: VANCOMYCIN HCL 1,000 MG, VIAL MATE ADAPTER 1 EACH in D5W 250 ML IV SCH (09:54)
[2018-04-16] MEDS: LEVOTHYROXINE 100 MCG (0.1MG) VIAL IV SCH (09:54)
--- NOTE | 2018-04-16 10:58 | IPN ---
DATE: 04/14/2018 Mr. Collado is seen this afternoon on his bedside in the intensive care unit. His and daughters are present on the bedside. The patient remains intubated and sedated. He is also still on Levophed. Nursing staff reports that yesterday evening his Levophed dose was down to 6 mcg, however, through the night he required up to 10 mcg and currently he is at 8 mcg per kilogram per minute. His blood pressure is just above 100 mmHg. He still has no urine output and remains on continuous renal replacement therapy (CRRT). The patient has no fever or chills. He has started to receive some tube feeding in the last couple of hours and it remains to be seen how he tolerates. PHYSICAL EXAMINATION: Temperature 98 degrees Fahrenheit, heart rate 98 per minute and respiratory rate 18 per minute on the ventilator. His blood pressure is about 110/60 mmHg and oxygen saturation 97% on 40% FiO2. Endotracheal tube is in place. He also has an orogastric tube. His head is atraumatic. Neck veins are difficult to be assessed however, this seemed to be only mildly elevated. Heart sounds are tachycardiac and lungs with moderate bilateral air entry. Abdomen soft and bowel sounds are still not audible. Extremities have no cyanosis or clubbing. Right lower extremity mottling and patchy ecchymosis is also noted. Neurologically he remains sedated and unresponsive. Today's labs show WBC count 15.2, hemoglobin 11.2 and hematocrit 34.7. Platelets are 29,000 this morning and then 24,000 later on. Sodium is 134, potassium 3.7, CO2 22, BUN 13 and creatinine 1.34. Glucose 196 and calcium 7.5. Blood gas showed a pH of 7.45, pCO2 of 30 and pO2 75.8. PROBLEMS: 1. Septic shock. Patient remains on Levophed and IV antibiotics. He did have positive blood cultures for Staphylococcus aureus and strep. He is being treated with appropriate antibiotics including Zosyn and vancomycin. Currently he is afebrile, however, still requiring pressors due to shock. 2. Oliguric acute renal failure. The patient remains on CRRT which is working very good. His electrolytes and acidosis have improved. We are making slight adjustments in the CRRT treatment today. His electrolytes are all being managed and replaced as needed. Volume status is reasonable with today's CVP of 17 and we will continue to maintain his intake and output in even status. We are not removing any net fluid. 3. Thrombocytopenia. The patient does have significant thrombocytopenia with prior history of the same. We are not giving him any heparin during CRRT. I have discussed with the patient's family at the bedside and explained his condition and answered all questions. A total of 28 minutes of critical care time spent during was no procedures were performed.
[2018-04-16] MEDS: VANCOMYCIN HCL 500 MG in D5W MINI-BAG PLUS 100 ML IV SCH (11:02)
[2018-04-16] MEDS: MORPHINE 4 MG/ML 1ML VIAL/SYRINGE (J2270) IV PRN ×3 (11:03→22:16)
--- NOTE | 2018-04-16 14:58 | CCN ---
DATE: 04/16/2018 SUBJECTIVE: Mr. Collado was seen at bedside this morning. He remains critically ill with multiorgan system failure secondary to septic shock necessitating mechanical ventilation. Currently he is on 6 mcg/min of Levophed. Attempts were made throughout the day to try and wean him off vasopressors without success. He remains on CRRT. He does not follow any commands, but when he is both on and off Propofol he makes spontaneous, perhaps rhythmic, movements with both upper extremities. OBJECTIVE: VITAL SIGNS: Temperature 97.2, pulse 104, respiratory rate of 20, blood pressure 105/59, pulse oximetry 96%. GENERAL: Mr. Collado is lying in bed, synchronous with the ventilator. HEENT: Head is normocephalic, atraumatic. Icteric. Pupils are 3 mm and sluggish. Nares are patent bilaterally. Moist oral mucosa. Oropharynx: Endotracheal tube present with orogastric tube in place. NECK: Right IJ site is clean. No cervical or supraclavicular lymphadenopathy. Minimal ability to move neck, LUNGS: Fair air entry bilaterally. No wheezes, rhonchi or crackles. Normal inspiratory to expiratory ratio. No accessory muscle usage or retractions. CARDIOVASCULAR: Tachycardic with regular rhythm. Normal S1, S2. No murmurs, gallops or rubs. ABDOMEN: The patient continues to have absent bowel sounds. Mild abdominal distention. No guarding, rebound tenderness, or rigidity on examination. EXTREMITIES: Warm. There are 2+ posterior tibialis and dorsalis pedis pulses bilaterally. The right lower extremity continues to have the same patchy areas and blistering in the distal part of the right lower extremity, as prior without advancement. There are some mild ischemic changes in the right leg; however, pulses are still palpable and he still has normal capillary refill, maybe greater than 2 second capillary refill. There is bilateral 2+ pitting edema in the lower extremities. LABORATORY DATA: White blood cell count of 9.3, hemoglobin of 10.4, hematocrit of 32, platelets of 29. Sodium of 134, potassium of 4.0, chloride of 100, bicarbonate of 26, BUN of 17, creatinine 1.77, glucose of 260. ABG on vent settings of 30% FiO2, PEEP of 9, respiratory rate of 16, tidal volume of 450.shows pH of 7.4, PCO2 of 34.5, PO2 of 84.1. Total bilirubin 6.5, direct bilirubin 5.1, AST 300, ALT of 550, alkaline phosphatase of 135, albumin 1.8. PTT of 46.1. Peritoneal fluid culture shows many white blood cells, few red blood cells, few gram positive cocci in pairs. CVP of 17. Urine output of 5 to 10 mL per hour. So far today he is 1038 mL in and 94 mL out for a positive of 944 mL. Initially weight was 96.5 kg and currently he is at 112, making his net positive for this visit approximately 16 kg. Blood cultures from 04/10/2018 showing Streptococcus dysgalactiae species. Nares swab showing methicillin resistant Staphylococcus aureus (MRSA). Pleural fluid from 04/11/2018 is showing Escherichia (E) coli and Streptococcus dysgalactiae. The wound cultures from 04/11/2018 is showing MRSA and Streptococcus agalactiae group B. IMAGING: Abdominal CT from yesterday was not done with IV contrast, only oral contrast and showed bilateral pleural effusions. I can see the pericardial catheter in correct position. There is ascites present in the abdomen. There is wall thickening of large and small bowel, compatible with colitis and enteritis. Resendez catheter is in place. No pneumoperitoneum. Anasarca throughout. The chest x-ray performed today shows bibasilar atelectasis or infiltrates, with small bilateral pleural effusions, unchanged compared to previous study. There is as cardiomegaly. ETT in good position. IMPRESSION: 1. Septic shock secondary to Streptococcus dysgalactiae sp. Although the white blood cell count is improving, he is still requiring vasopressor therapy. We are concerned that this may be due to a pocket of abscess that has formed either in the peritoneal cavity or that the pleural effusion that is currently accumulating may be due to an ongoing bacterial infection that is not being cleared adequately by the antibiotics. After speaking with Dr. Prasad, Dr. Smith and reconsulting general surgery, we are electing to drain the right pleural effusion, as well as attempting to drain some of the ascitic fluid from the peritoneum. We will culture these fluids, and see if there is anything that we have been missing from an infectious standpoint that is requiring Mr. Collado to still require vasopressor therapy. Dr. Prasad and interventional radiology are scheduled to drain the effusions today at approximately 1600 hours. Due to the low platelet count, we will be running platelets 30 minutes prior to these procedures. 2. Absent bowel sounds. No bowel movements. There is concern for possible mesenteric ischemia, it has not been ruled out given that the IV contrast was not used. General surgery has been consulted to evaluate the patient. Although he does not seem like he has an acute abdomen, he continues to require vasopressor support and we are looking for all possible causes of this. 3. Metabolic acidemia, improving with CRRT. Currently his ABG is relatively normal, as are his electrolytes. 4. Acute respiratory failure secondary to metabolic acidemia leading to mechanical ventilation. He is currently stable and his lung status has not changed since he was initially intubated since his acidemia has been improving. 5. Infective pericarditis leading to tamponade. Status post pericardial window 04/12/2018. As confirmed by CT, pericardial tube is still in place. It drained about 10 mL of fluid overnight. 6. Ischemic right foot secondary to presumed emboli from femoral artery catheter. This is stable and has not progressed. 7. Coagulopathy. This is likely secondary to the patient's liver failure. His INR has normalized; however, a PTT is still elevated. 8. Elevated liver functions, in part secondary to cirrhosis but may also be due secondary to shock liver. This is also improving. 9. Acute renal failure and metabolic acidemia leading to CRRT. Continue to follow as per nephrology. 10. Diabetes mellitus. On sliding scale. 11. Thrombocytopenia. This is likely due to both sepsis and consumption, as well as the possible liver failure. He does have a history of thrombocytopenia on presentation in January as well. 12. Hepatocellular carcinoma, definitive treatment is planned at [facility]. 13. Deep vein thrombosis (DVT) prophylaxis. INR is normal. PTT is elevated. We can not add thromboembolic compression stockings (TEDS) at this time. He is on SCDs. 14. Stress ulcer prophylaxis. He is on proton pump inhibitor therapy. 15. Infectious disease. He is currently on vancomycin and Zosyn. Cultures have shown Streptococcus dysgalactiae sp. equisimilis, which is thought to be the predominant infective agent, which is felt to be the likely cause of his septic shock. He also has methicillin resistant Staphylococcus aureus (MRSA), now Escherichia (E) coli . 16. The patient is still nothing by mouth. On TPN. Critical Care Time: 100 minutes, not including procedure time. ADDENDUM: I, Dr. Irish Parsons, was present and participated in the history and physical examination and agree with the documentation. I discussed the assessment and plan with the resident and agree with the above documentation. PAULINO
--- NOTE | 2018-04-16 15:43 | CCN ---
DATE: 04/15/2018 NOTE: Mr. Collado remains critically ill with multiorgan system failure secondary to severe sepsis with shock. He remains intubated secondary to respiratory failure related to his severe metabolic acidemia. He has liver failure though his liver enzymes are improving. He remains without bowel sounds and perhaps appears tender on examination. His right lower extremity is still cool but there are Dopplerable pulses. He is getting more anasarca. He was unable to tolerate trickle tube feeds. After six hours at 10 mL per hour, he had a 50 mL residual. On a sedation holiday, he is moving all extremities but not following commands. OBJECTIVE: PHYSICAL EXAMINATION: GENERAL: Mr. Collado is lying in bed, sedated and intubated. He is synchronous with the ventilator. VITAL SIGNS: Temperature 96.7 with a maximum temperature (T-max) of 97.5. Pulse 99, blood pressure 95/53 with a mean arterial pressure (MAP) of 67, respiratory rate 24-26. SpO2 97% on an FiO2 of 0.3. HEENT: Icteric, pupils 2 mm and sluggish. Nares: Patent bilaterally. Moist mucosa. Oropharynx: Endotracheal (ET) tube and orogastric (OG) tube in place. NECK: Trachea is midline. Right internal jugular (IJ) site clean. LYMPHATICS: Without cervical or supraclavicular lymphadenopathy. LUNGS: Symmetric excursion. Good air entry. No wheeze, rhonchi, or significant crackles. Decreased breath sounds at the bases bilaterally. Normal I:E. No accessory muscle usage or retractions. CARDIOVASCULAR: Regular rate and rhythm with a normal S1, S2. No murmur, rub or gallop appreciated. ABDOMEN: Absent bowel sounds, distended though soft, questionable tenderness. No masses appreciated. EXTREMITIES: 2+ to 3+ pitting edema. Dopplerable pedal pulses bilaterally without clubbing or cyanosis. Right foot remains with discolored toes and a purpuric rash on the foot and ischemic changes in the skin. There are blisters on the dorsum of the right foot as well. LABORATORY DATA: CBC from this morning shows a hemoglobin of 10.4, hematocrit 33.2, platelet count 26,000, white blood cell count 10,800. Chemistry shows a sodium of 136, potassium 4.2, chloride 103, bicarbonate 25, anion gap 8, BUN 14, creatinine 1.5, glucose 138, calcium 7.8, ionized calcium 4.4, phosphorus 2.2, magnesium 2.0, total bilirubin 5.7, direct bilirubin 4.5, AST 463 (down from 540), ALT 690 (down from 755), alkaline phosphatase 116 (down from 129), total protein 4.9, albumin 1.9. INR 1.55, PTT 46.1. Arterial blood gas on [facility] with a rate of 16, tidal volume of 450 and PEEP of 9 was 7.43/35.95 with a measured saturation of 97% and a base excess of -1.2. I reviewed his chest x-ray as well as the report from earlier today. That x-ray showed an enlarged cardiac silhouette with normal-appearing pulmonary vascular shadows. There is increased interstitial markings. There is obscuring of both diaphragms likely effusions plus or minus atelectasis. Endotracheal tube is in good position. Yesterdays intake and output was 2279 in and 177 out making him positive 2102. Thus far today 498 in and 92 out making him positive 406. Weight 110.4 kg. Microbiology: New results compared to yesterday is that his 04/12/2018 pericardial fluid grew Streptococcus dysgalactiae SP equisimilis. IMPRESSION: 1. Septic shock secondary to Streptococcus dysgalactiae subspecies equisimilis. 2. Acute respiratory failure secondary to metabolic acidemia leading to mechanical ventilation. 3. 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 4. Ischemic right foot secondary to presumed emboli from right femoral artery catheter. 5. Coagulopathy secondary to "auto-anticoagulation", likely in large part secondary to liver failure. 6. Elevated liver functions in part secondary to shock liver as well as cirrhosis, slow improvement. 7. Acute renal failure leading to continuous renal replacement therapy (CRRT). 8. Diabetes mellitus, on sliding scale insulin. 9. Cirrhosis. 10. Hepatocellular carcinoma, definite treatment being planned at [facility]. 11. Deep vein thrombosis (DVT) prophylaxis. He is "auto-anticoagulated" by partal thromboplastin time (PTT). He is also on sequential compression devices (SCDs). 12. Stress ulcer prophylaxis, on proton pump inhibitor. 13. Infectious disease, on vancomycin and Zosyn. Thus far, we have had several positive cultures, the most predominant of which is Streptococcus dysgalactiae subspecies equisimilis. However, he has also had places of methicillin-resistant Staphylococcus aureus (MRSA), Escherichia (E) coli and Streptococcus agalactiae group B though that is thought to be a skin bacteria and not reflective of an acute infection. 14. Nutrition, currently nothing by mouth. He did not tolerate trickle feeds. RECOMMENDATIONS: 1. We will continue current care. 2. Unfortunately, we will not be able to any substantiative moves in regards to weaning from the ventilator until we are able to begin to pull fluids and decrease his pulmonary edema and anasarca. 3. We will continue with current antibiotics. 4. We will be obtaining an abdominal CT with oral and IV contrast to better evaluate the abdomen. He did not tolerate tube feeds and remains without bowel sounds. He also appears possibly to be tender on examination. 5. We will place MPO boots if okay with vascular surgery to prevent footdrop. 6. We will start total parenteral nutrition (TPN). 7. Depending upon the results of the abdominal CT scan, would consider retrying trickle feeds. We may need to add a stimulant such as Reglan but I do not want to do that pending further abdominal evaluation. 8. We will make certain that Dr. Robison is aware of the blisters on his right foot. PROGNOSIS: Remains guarded. CRITICAL CARE TIME: 40 minutes, not including procedure time. MTDD
[2018-04-16] MEDS ORDERED: MIDAZOLAM INJ 2 MG/2 ML VIAL (J2250) As Ordered ONE (15:58)
--- NOTE | 2018-04-16 16:03 | CCN ---
DATE OF SERVICE: 04/15/2018 Mr. Collado is seen this morning in intensive care unit on his bedside. He is currently sedated, and nursing staff report that he received morphine just a few minutes ago due to agitation. He remains on the ventilator. He was given a tube feeding yesterday. However, he did not tolerate and has been stopped. He remains on Levophed 7 mcg/kg/min. He is also on a continuous renal replacement therapy (CRRT) due to oliguric acute renal failure and septic shock. His urine output is minimal. On physical examination, temperature is 96.7 degrees Fahrenheit, heart rate 102 per minute, and respiratory rate 26 per minute on the ventilator. Blood pressure 95/53 mmHg, and oxygen saturation 97% on 30% FIO2. His head is atraumatic. Neck veins are slightly distended, though somewhat difficult to assess. Endotracheal tube is in place. His heart sounds are tachycardiac. Lungs have good bilateral air entry. Abdomen is soft, and today it is tender as he did raise both his arms up when I pushed on his lower abdomen. Bowel sounds are not audible. Extremities: Have no cyanosis or clubbing. Right lower extremity gangrenous patchy area with mottling is essentially unchanged. Neurologically, he remains medically comatose. Today's laboratories show sodium 136, potassium 4.2, chloride 103, CO2 25, BUN 14, creatinine 1.53, glucose 138, calcium 7.8, phosphorus 2.2, and magnesium 2.0. His total protein is 4.9 and albumin 1.9. WBC count is 10.8, hemoglobin 10.4, and hematocrit 33.2. Platelets 26,000. Blood gas showed a pH of 7.43, pCO2 34.7, and pO2 95.4, with bicarbonate 23.5. PROBLEMS: 1. Septic shock. The patient remains on Levophed, and blood pressure is just about 90 mmHg systolic. However, his mean arterial pressure remains close to 70. He will continue to receive antibiotics, including vancomycin and Zosyn, and remains on Levophed. His central venous pressure (CVP) has been about 17, so we will not give him any more fluids. 2. Oliguric acute renal failure. The patient remains oliguric and is still on CRRT. He is very well dialyzed, and we will continue with the same, as he is still requiring Levophed and is still in shock. CRRT is working very well, and orders are being renewed. 3. Abdominal tenderness and inability to tolerate tube feeds. I am concerned about possibility of ischemic bowel, as he does have embolus to his right lower extremity, and possibly there could be infarction of bowel with embolus. We will get a CT scan of abdomen and pelvis with oral and intravenous (IV) contrast. I have discussed with Dr. Parsons and nursing staff. CT scan of abdomen and pelvis with contrast is being ordered. 4. Nutrition. The patient did not tolerate tube feeding. We are going to start total parenteral nutrition (TPN), and special formula TPN orders are being written. We will also add insulin 10 units in the TPN bag and also start with fingerstick and coverage every 6 hours. 5. Respiratory failure. The patient remains on the ventilator, and his volume status is slightly decompensated. We are maintaining his fluid to even with CRRT, as he is still hypotensive and requiring Levophed. We are unable to remove fluid more aggressively due to low blood pressure. 6. Anemia and thrombocytopenia. At present, it is stable and essentially unchanged. 7. Metabolic acidosis. His acidosis has corrected and remains stable with CRRT, and will continue with the same prescription. 42 minutes of critical care time spent on the bedside and coordination of care. No procedures were performed during this time.
[2018-04-16] MEDS ORDERED: LIDOCAINE 1% MDV 20ML VIAL As Ordered ONE (16:04)
[2018-04-16] MEDS ORDERED: LIDOCAINE 1% MDV 20ML VIAL SC ONE (16:45)
[2018-04-16] MEDS ORDERED: MIDAZOLAM INJ 2 MG/2 ML VIAL (J2250) IV ONE (16:45)
--- NOTE | 2018-04-16 17:22 | REP ---
Portable chest, 04:50 p.m., single AP view, the patient supine: Comparison is from 06:56 a.m. earlier today. There are bilateral pleural effusions. There is a right thoracotomy tube as an interval change. There is no pneumothorax. There is increased radiodensity throughout the left lung compatible with a diffuse left lung infiltrate. The endotracheal tube, nasogastric tube and right IJ central venous catheter remain in satisfactory locations, unchanged. Tubing is noted superimposed over the upper abdomen as previously. Cardiac size is unchanged. Impression: New right thoracotomy tube. No other significant interval change. Electronically Signed by Garrett Argueta MD 04/16/2018 05:13 P
[2018-04-16 17:46] LABS: IONIZED CALCIUM 4.5 MG/DL (4.5-5.3)
--- NOTE | 2018-04-16 17:51 | REP ---
Ultrasound-guided paracentesis The procedure was performed under the direct supervision of Dr. Vences. The risks and benefits of the procedure were explained and informed consent was obtained by the healthcare proxy. The largest pocket of fluid was localized in the right lower quadrant using ultrasound guidance. The skin was prepped and draped in a sterile fashion. 1% lidocaine was used as a local anesthetic. Using ultrasound guidance an 8-[place] multi side-hole catheter was inserted using trocar technique. 1350 ml of reigna colored fluid was withdrawn with a sample sent to the lab for analysis. The patient tolerated the procedure well and there were no immediate complications. After the appropriate amount of monitored convalescence the patient was discharged from the department. Reviewed by JOSSELYN Hennessy 04/16/2018 05:40 P Electronically Signed by Souleymane Vences MD 04/16/2018 05:41 P
[2018-04-16] MEDS ORDERED: [UNRECOGNIZED DRUG - OTHER] IV SCH ×8 (18:00)
[2018-04-16] MEDS ORDERED: SODIUM CHLORIDE IV SCH ×8 (18:00)
[2018-04-16] MEDS ORDERED: SODIUM ACETATE IV SCH ×8 (18:00)
[2018-04-16] MEDS ORDERED: FAT EMULSION IV 20% 500 ML IV SCH (18:00)
[2018-04-16 18:47] LABS: MAGNESIUM LEVEL 2.1 MG/DL (1.8-2.4); PHOSPHORUS LEVEL 3.3 MG/DL (2.5-4.9)
[2018-04-16 19:26] LABS: PH BODY FLUID 7.637 UNITS (NOT ESTABLISHED); SOURCE, BODY FLUID pH PLEURAL
[2018-04-16 19:28] LABS: SOURCE, BODY FLUID ASCITES
[2018-04-16 19:29] LABS: ASCITES FL COLOR YELLOW (COLORLESS)
[2018-04-16 19:39] LABS: AMYLASE, BODY FLUID 9 U/L (NOT ESTABLISHED); CHOLESTEROL, BODY FLUID < 50 MG/DL (NOT ESTABLISHED); SOURCE, BODY FLUID ALBUMIN PLEURAL; SOURCE, BODY FLUID AMYLASE PLEURAL; SOURCE, BODY FLUID CHOL PLEURAL; SOURCE, BODY FLUID GLUCOSE PLEURAL; SOURCE, BODY FLUID TOT PROTEIN PLEURAL; SOURCE, BODY FLUID TRIG PLEURAL; TOTAL PROTEIN, BODY FLUID 1.5 G/DL (NOT ESTABLISHED); TRIGLYCERIDE, BODY FLUID 24 MG/DL (NOT ESTABLISHED)
[2018-04-16 19:40] LABS: SOURCE, BODY FLUID ALBUMIN ASCITES; SOURCE, BODY FLUID GLUCOSE ASCITES; SOURCE, BODY FLUID TOT PROTEIN ASCITES; TOTAL PROTEIN, BODY FLUID 0.7 G/DL (NOT ESTABLISHED)
[2018-04-16 19:56] LABS: APPEARANCE, BODY FLUID CLOUDY (CLEAR); PLEURAL FL COLOR AMBER (COLORLESS); SOURCE, BODY FLUID PLEURAL
[2018-04-16 19:57] LABS: APPEARANCE, BODY FLUID CLOUDY (CLEAR)
--- NOTE | 2018-04-16 19:57 | CCN ---
DATE: 04/16/2018 Mr. Collado is seen this morning in the intensive care unit on his bedside. Dr. Prasad and Dr. Parsons also present and we discussed the case in details. The patient remains hypotensive requiring Levophed and he is also ventilator dependent at present due to respiratory failure. He is volume overloaded due to oliguric renal failure. He is being treated with septic shock with antibiotics including vancomycin and Zosyn. He had a pericardial window done with drainage of pericardial fluid which did come back positive for Escherichia (E) coli. The patient has poor bowel function with no bowel sounds and did not tolerate tube feeding. Yesterday, CT scan of abdomen and pelvis was done, however, IV contrast was not given despite the order was written for IV contrast. In any event, there was thickening of small intestine and colon but no definite fluid collection was noted though he did have some ascites around the liver. He remains continuous renal replacement therapy (CRRT) dependent due to septic shock and respiratory failure. The patient had severe metabolic acidosis for initial 3 days. However, it has now improved and remained stable with CRRT. He is currently on sedation holiday and moving his upper extremities. The patient is not able to answer any questions. PHYSICAL EXAMINATION: Temperature 96.4 degrees Fahrenheit, heart rate 96 per minute and respiratory rate 20 per minute. Blood pressure 97/57 mmHg and oxygen saturation 97% on 30% FiO2. His central venous pressure (CVP) is 17. His head is atraumatic. Endotracheal tube is in place and central lines are intact without any bleeding or signs of infection. Heart sounds are irregular and tachycardiac. Lungs have good bilateral air entry. Pericardial tube is in place. Abdomen is soft and bowel sounds are not audible. Extremities have no cyanosis or clubbing. Lower extremity edema is 2+. He has patchy areas of mottling on his right lower extremity with some skin necrosis. Neurologically he is not awake or responsive and does not follow command. Today's labs showed WBC count 9.3, hemoglobin 10.4 and hematocrit 32.0. Platelets are 29,000. Sodium 134, potassium 4.0, CO2 26, BUN 17 and creatinine 1.77. Glucose was 60 and calcium 7.8. Phosphorus is 3.0 and magnesium 1.9. AST is down to 300, ALT 550 and alkaline phosphatase 135. Total protein 4.9 and albumin 1.8. PROBLEMS: 1. Septic shock. The patient remains on antibiotics and pressors. At this point he is still requiring Levophed and volume has been significantly positive so we cannot give him any more fluid. 2. Respiratory failure. The patient remains on the ventilator with volume overload and septic shock. We are going to try to remove fluid with CRRT as tolerated. 3. Acute renal failure. The patient remains oliguric with urine output only about 10 mL per hour. This is improvement compared to no urine output a few days ago. At present he will continue to receive CRRT and we will also try to remove some fluid today as tolerated. His CRRT orders are being renewed. He is very well dialyzed and at present he does not have any evidence of acidosis. 4. Nutrition. Total parenteral nutrition (TPN) was started yesterday and we will continue with the same. Special formula TPN is being ordered again today. 5. Anemia and thrombocytopenia. No significant change and no active bleeding. At this point we will continue to monitor closely and there is no urgent indication for a transfusion. 43 minutes of critical care time spent today during which no procedures were performed.
[2018-04-16 20:14] LABS: HEMATOCRIT 30.4 % (42.0-52.0); HEMOGLOBIN 9.6 g/dl (13.5-17.5); MEAN CORPUSCULAR HEMOGLOBIN 25.1 pg (27.0-33.0); MEAN CORPUSCULAR HGB CONC 31.6 g/dl (32.0-36.5); MEAN CORPUSCULAR VOLUME 79.6 fl (80.0-96.0); RED BLOOD COUNT 3.82 10^6/uL (4.30-6.10); WHITE BLOOD COUNT 10.1 10^3/uL (4.0-10.0)
[2018-04-16 20:15] LABS: PLATELET COUNT, AUTOMATED 38 10^3/uL (150-450)
[2018-04-16 21:36] LABS: ALBUMIN 1.8 GM/DL (3.2-5.2); BILIRUBIN,DIRECT 4.5 MG/DL (0.0-0.2); CALCIUM LEVEL 7.9 MG/DL (8.8-10.2); POTASSIUM SERUM 4.3 MEQ/L (3.5-5.1)
[2018-04-16 21:37] LABS: BILIRUBIN,TOTAL 6.9 MG/DL (0.2-1.0); CREATININE FOR GFR 1.7 MG/DL (0.70-1.30); GLOMERULAR FILTRATION RATE 42.5 (>42); TOTAL PROTEIN 4.7 GM/DL (6.4-8.2)
[2018-04-17] VITALS (57 sets, daily range): BP systolic 61–162; BP diastolic 37–73; O2SAT 94–98
[2018-04-17] MEDS: IPRATROPIUM 0.5MG/ALBUTEROL 2.5MG INH SOL UD 3ML (DUONEB)(J7620) NEB SCH ×6 (00:07→23:41)
--- NOTE | 2018-04-17 00:59 | RO ---
DATE OF PROCEDURE: 04/16/2018 PREPROCEDURE DIAGNOSIS: Right pleural effusion, right lower lobe lung compression. POSTPROCEDURE DIAGNOSIS: Right pleural effusion, right lower lobe lung compression. PROCEDURE: Insertion of right lateral chest tube. SURGEON: Dr. Jas Prasad PROGRAM RESEARCH SPECIALIST: ANESTHESIA: DESCRIPTION OF PROCEDURE: Under satisfactory sedation achieved with propofol with the patient intubated, he was prepped and draped in the usual sterile fashion. A site was picked over the approximate 6th intercostal space and infiltrated with 1% lidocaine. A tunnel was created in the chest without difficulty and a #24 chest tube was placed posteriorly. The chest tube drained 800 mL of serosanguineous fluid, more serous than sanguineous. The chest tube was secured to the chest wall with a #2 Tevdek suture and connected to the Pleur-evac. Cultures were sent for requisite bacteriology, cytologies, chemistries, and bacteriologies. The patient tolerated the procedure well and a chest x-ray is pending.
[2018-04-17] MEDS: PROPOFOL 1,000 MG in APPROPRIATE DILUENT 1 EA IV SCH (01:17)
[2018-04-17] MEDS: PIPERACILLIN/TAZOBACTAM SOD 3.375 GM in D5W MINI-BAG PLUS 50 ML IV SCH ×4 (02:12→19:54)
[2018-04-17] MEDS: HEPARIN 1,000 UNITS/ML 10ML VIAL (FOR RADIOLOGY& DIALYSIS ONLY) IV PRN (05:25)
[2018-04-17 05:41] LABS: HEMATOCRIT 29.8 % (42.0-52.0); HEMOGLOBIN 9.5 g/dl (13.5-17.5); MEAN CORPUSCULAR HEMOGLOBIN 24.7 pg (27.0-33.0); MEAN CORPUSCULAR HGB CONC 31.9 g/dl (32.0-36.5); MEAN CORPUSCULAR VOLUME 77.4 fl (80.0-96.0); RED BLOOD COUNT 3.85 10^6/uL (4.30-6.10); WHITE BLOOD COUNT 8.9 10^3/uL (4.0-10.0)
[2018-04-17 05:45] LABS: IONIZED CALCIUM 4.6 MG/DL (4.5-5.3)
[2018-04-17 05:47] LABS: PLATELET COUNT, AUTOMATED 32 10^3/uL (150-450)
[2018-04-17] MEDS: SODIUM CHLORIDE 0.9% INJ 10 ML SYR IV SCH ×3 (05:48→21:16)
[2018-04-17] MEDS: SLF 3 ML SYR IV SCH ×3 (05:48→21:52)
[2018-04-17] MEDS: HumaLOG INSULIN (NovoLOG) PER UNIT SC SCH ×4 (05:49→18:10)
[2018-04-17] MEDS: LEVOTHYROXINE 100 MCG (0.1MG) VIAL IV SCH (05:49)
[2018-04-17 06:14] LABS: EOSINOPHILS 2 % (0-5); LYMPHOCYTES 8 % (16-52); MONOCYTES 10 % (0-8); NEUTROPHILS 80 % (35-75); PLATELET ESTIMATE MARKED DECREASE (NORMAL)
[2018-04-17 06:16] LABS: ANISOCYTOSIS 2+
[2018-04-17 06:17] LABS: CRENATED RBC 1+; TARGET CELLS 1+
[2018-04-17 06:30] LABS: ALBUMIN 1.8 GM/DL (3.2-5.2); BILIRUBIN,DIRECT 5.6 MG/DL (0.0-0.2); BILIRUBIN,TOTAL 6.8 MG/DL (0.2-1.0); CALCIUM LEVEL 8.3 MG/DL (8.8-10.2); CREATININE FOR GFR 1.69 MG/DL (0.70-1.30); GLOMERULAR FILTRATION RATE 42.8 (>42); PHOSPHORUS LEVEL 2.9 MG/DL (2.5-4.9)
[2018-04-17] MEDS ORDERED: CALCIUM GLUCONATE 1,000 MG in NS 100 ML IV ONE (07:00)
[2018-04-17] MEDS: CHLORHEXIDINE GLUCONATE 0.12 % 15ML UDC (PERIDEX ORAL RINSE) MT SCH ×2 (08:00→19:55)
[2018-04-17] MEDS: PANTOPRAZOLE 40MG INJ (PROTONIX) (C9113) IV SCH (08:00)
[2018-04-17] MEDS: METOCLOPRAMIDE INJ 10MG/2ML VIAL (J2765) IV SCH ×3 (08:00→18:08)
[2018-04-17] MEDS: MORPHINE 4 MG/ML 1ML VIAL/SYRINGE (J2270) IV PRN ×4 (08:02→23:25)
[2018-04-17] MEDS: VANCOMYCIN HCL 1,000 MG, VIAL MATE ADAPTER 1 EACH in D5W 250 ML IV SCH (08:02)
[2018-04-17] MEDS: ASPIRIN 81 MG CHEW TABLET NG SCH (08:02)
--- NOTE | 2018-04-17 12:43 | PHACANCOPD ---
PHARMACY VANCOMYCIN DOSING Pt Demographics Demographics Patient Age:73 , Weight:109.500 , Gender: male Adjusted Body Weight Vancomycin Vancomycin indication: SEPSIS Vancomycin Target Ranges: 15-20 mcg/ml Vancomycin Load Y/N: Yes Load Dose Date Time Vancomycin Load Dose: 2GM Date: 04/10/18 Time: 21:00 Vancomycin Dose Date: 04/15/18. Current Vancomycin Dose: [1500mg q24h] Intermittent Dosing?: No Labs Micro Microbiology 04/10/18 Blood Culture - Final, Complete Strep Dysgalactiae Sp Equisim 04/10/18 Blood Culture - Final, Complete Strep Dysgalactiae Sp Equisim 04/16/18 Acid Fast Stain, Ordered Pending 04/16/18 Mycobacterial Culture, Ordered Pending 04/16/18 Fungal Smear, Ordered Pending 04/16/18 Fungal Culture, Ordered Pending 04/16/18 Acid Fast Stain, Received Pending 04/16/18 Mycobacterial Culture, Received Pending 04/16/18 Fungal Smear, Received Pending 04/16/18 Fungal Culture, Received Pending 04/16/18 Gram Stain - Final, Resulted 04/16/18 Body Fluid Culture, Resulted Pending 04/16/18 Anaerobic Culture, Resulted Pending 04/16/18 Acid Fast Stain, Received Pending 04/16/18 Mycobacterial Culture, Received Pending 04/16/18 Fungal Smear, Received Pending 04/16/18 Fungal Culture, Received Pending 04/16/18 Gram Stain - Final, Resulted 04/16/18 Body Fluid Culture, Resulted Pending 04/12/18 Gram Stain - Final, Complete 04/12/18 Body Fluid Culture - Final, Complete 04/12/18 Acid Fast Stain, Received Pending 04/12/18 Mycobacterial Culture, Received Pending 04/12/18 Fungal Smear, Received Pending 04/12/18 Fungal Culture, Received Pending 04/12/18 Gram Stain - Final, Complete 04/12/18 Body Fluid Culture - Final, Complete Strep Dysgalactiae Sp Equisim 04/12/18 Anaerobic Culture - Final, Complete 04/11/18 Gram Stain - Final, Complete 04/11/18 Body Fluid Culture - Final, Complete Escherichia Coli Strep Dysgalactiae Sp Equisim 04/11/18 Acid Fast Stain, Received Pending 04/11/18 Mycobacterial Culture, Received Pending 04/11/18 MRSA Screen - Final, Complete Staph.aureus Methicillin Resis 04/10/18 Respiratory Virus Panel (PCR) ([facility]IN) - Final, Complete 04/11/18 Gram Stain - Final, Complete 04/11/18 Wound Culture - Final, Complete Staph.aureus Methicillin Resis Strep Agalactiae Group B Creatinine Clearance Date:04/15/18. Creatinine Clearance: [ ~41 ml/min]. Assessment and Plan Maintaining Current Dose?: No Reason for dose change: No Dose Change, Other Pharmacist Note Pharmacist Note 04/17/18: Day #8 vancomycin therapy. Random level this morning resulted at 24mcg/ml. Although this extrapolates to a trough level ~19mcg/ml, I will reduce the dose as the random yesterday was 22.2mcg/ml and the patient appears to be accumulating. We will decrease the dosing today to 1g IV Q24H. The patient remains on CRRT. A follow-up random vancomycin level has been scheduled to be drawn tomorrow with morning labs. We will continue to monitor and make further dose adjustments if needed. Date: 04/15/18. PharmD note:Random level of 20.6 extrapolates to a trough of 16- 17 which is within target range. Will continue current dosing. Will continue to monitor and make adjustments as needed. MARIA LUISA CERDA PHARMACY Apr 17, 2018 12:43
--- NOTE | 2018-04-17 16:31 | CCN ---
DATE: 04/17/2018 NOTE: Mr. Collado remains critically ill with multiorgan system failure. He remains on mechanical ventilation secondary to metabolic acidemia. He continues to require continuous renal replacement therapy (CRRT). They are just being able to remove some but limited fluids. He remains 13 kg up from admission. He remains on norepinephrine at 6 mcg/min. Yesterday, he had a paracentesis done, during which time, he had 1350 mL of ascitic fluid removed. He also had a right chest tube placed yesterday afternoon with 1800 mL of serosanguineous fluid removed immediately. Following these procedures, not unexpectedly, he had increased requirement for vasopressor with his norepinephrine increased to 20 mcg/min. On his sedation holiday, he is not following commands. In fact, he was off sedation all day yesterday until the procedures and was not following commands. Thus far today after being off sedation for several hours, he is moving spontaneously but not following any commands. In fact, his movement often appears somewhat rhythmic with his raising of both arms up and then down. He is not responding to voice or deep pain. OBJECTIVE: PHYSICAL EXAMINATION: GENERAL: Mr. Collado is intubated and synchronous with the ventilator. HEENT: Icteric. Pupils 2-3 mm and sluggish. Nares: Patent bilaterally. Small region of sore on his nares. Oropharynx: Endotracheal (ET) tube and orogastric (OG) tube in place. NECK: Unable to significantly flex or turn the neck. Trachea is midline. LYMPHATICS: Without cervical or supraclavicular lymphadenopathy. LUNGS: Symmetric excursion. Good air entry. No wheeze, rhonchi or significant crackle on tidal excursion. Diminished and absent breath sounds at the left base. Normal I:E. No accessory muscle usage or retractions. He has a right chest tube in place with serosanguineous drainage around the chest tube. He has a pericardial tube in place with serosanguineous drainage around that tube and the incision. ABDOMEN: Absent bowel sounds, decreased distension. Soft. No appearance suggestive of tenderness on palpation. EXTREMITIES: Anasarca with 2+ edema, Dopplerable pedal pulses bilaterally. He remains with discolored regions on his right foot that are unchanged. Perhaps his toes are slightly better perfused. LABORATORY DATA: CBC shows a hemoglobin of 9.5, hematocrit 29.8, platelet count 32,000, white blood cell count 8900 with a differential of 80% neutrophils, 8% lymphocytes and 10% monocytes. Chemistry shows a sodium of 135, potassium 4.0, chloride 102, bicarbonate 25, anion gap 8, BUN 20, creatinine 1.7, glucose 259, calcium 8.3, total bilirubin 6.8, direct bilirubin 5.6, AST 194, ALT 425, alkaline phosphatase 167, total protein 5.0, albumin 1.8. PTT 46.1. Yesterday's intake and output was 4841 in and 4274 out making him positive 567. Thus far today, 1558 in and 719 out making him positive 839. Weight 109.5 kg. IMPRESSION: 1. Septic shock secondary to Streptococcus dysgalactiae subspecies equisimilis. 2. Acute respiratory failure secondary to metabolic acidemia leading to mechanical ventilation. 3. 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 4. Ischemic right foot secondary to presumed emboli from right femoral catheter. 5. Coagulopathy, likely in large part secondary to liver failure. 6. Ascites, status post paracentesis yesterday. 7. Bilateral pleural effusions, likely secondary to anasarca, status post right chest tube placement yesterday. 8. Acute renal failure leading to continuous renal replacement therapy (CRRT). 9. Diabetes mellitus, on sliding scale insulin. 10. Cirrhosis. 11. Hepatocellular carcinoma, definitive treatment being planned at [facility]. 12. Thrombocytopenia, in part secondary to sepsis. However, he had thrombocytopenia on presentation with his acute coronary syndrome in January 2018. 13. Deep vein thrombosis (DVT) prophylaxis. He is on sequential compression devices (SCDs). 14. Stress ulcer prophylaxis, on proton pump inhibitor. 15. Infectious disease, on vancomycin and Zosyn. He has had several cultures, the predominant of which is Streptococcus dysgalactiae subspecies equisimilis. However, he has also had places with growth of methicillin-resistant Staphylococcus aureus (MRSA), Escherichia (E) coli, and Streptococcus agalactiae group B. 16. Nutrition, on total parenteral nutrition (TPN). RECOMMENDATIONS: 1. We will again try trickle feeds. 2. We will institute Reglan. 3. Appreciate all consultants including nephrology, vascular surgery, thoracic surgery, and general surgery. 4. At this point, no further weaning can be done on the ventilator and I do not anticipate we will be able to do so until some of the anasarca is relieved. 5. Await cultures results from paracentesis and chest tube placement. 6. We will continue on current antibiotics of vancomycin and Zosyn. 7. We will continue off of all sedation until proven that he needs it. Would like to have a better assessment of his mental status. CRITICAL CARE TIME: 50 minutes, not including procedure time. PAULINO
--- NOTE | 2018-04-17 17:00 | IPN ---
DATE: 04/17/2018 Mr. Collado is seen this morning in intensive care unit. He underwent a thoracentesis and a paracentesis yesterday due to persistent septic shock and was noticed to have elevated white blood cells however, they have improved significantly compared to prior procedure of April 12. His ascites showed a white cell count of 12,546 on April 16 while it was 373,000 on April 12. Pleural fluid showed a white cell count of 4586 on April 16 while on it was 95,460. In the meantime the patient remains on Levophed due to persistent hypotension and he is still oliguric requiring CR artery therapy. He remains intubated and he is currently off propofol. He is moving his arms up in the air. He is does not have any purposeful movement and not able to follow command. He did not tolerate tube feeding though an orogastric tube is still in place. He has been on TPN. PHYSICAL EXAMINATION: Temperature 96.7 degrees Fahrenheit, heart rate 103 per minute and respiratory rate 24 per minute on the ventilator. Blood pressure is about 93/55 mmHg and oxygen saturation 97% on 30% FIO2. Intake and output records from yesterday showed total intake 4841 and output 4274. Most of it is removed via CRRT and urine output is minimal. Total urine output for 24 hours was 143. His head is atraumatic. Oral tracheal tube and orogastric tubes are in place. His heart sounds are tachycardiac and lungs have diminished breath sounds at bases. Abdomen is soft and bowel sounds are not audible. Pericardial tube and pleural tubes are in place. Extremities have no cyanosis or clubbing. Generalized edema is noted. Right lower extremity necrotic and ischemic areas of skin are essentially unchanged. Neurologically he is moving his arms up in the air but no purposeful movement and unable to follow any commands. LABORATORY DATA: Today's labs show sodium level 135, potassium 4.0, chloride 102, CO2 25, BUN 20 and creatinine 1.69. Glucose 259, calcium 8.3. Phosphorus is 2.9 and magnesium 2.0. Total bilirubin is 6.8 and direct bilirubin 5.6. AST is down to 194 and ALT 425. Alkaline phosphatase 167. Total protein 5.0 and albumin 1.8. WBC count is 8.9, hemoglobin 9.5 and hematocrit 29.8. Platelets are 32,000. PROBLEMS: 1. Septic shock. The patient remains on Levophed and antibiotics as previously. He is still on Levophed about 7 mcg which is essentially unchanged. He is receiving vancomycin and Zosyn. His vancomycin level is being monitored by the pharmacy and today vancomycin level is 24.0. 2. Oliguric acute renal failure. The patient remains oliguric and CRRT dependent. Because of large volumes of IV fluid and TPN given and persistent hypotension. We will continue with CR artery. Orders are being renewed. 3. Nutrition. The patient remains on TPN as he did not tolerate tube feeding. His TPN orders are being adjusted according to his electrolytes and hyperglycemia. We are increasing the insulin and TPN. He will in addition to continue with fingerstick and coverage every 6 hours. 4. Respiratory failure. The patient has decompensated volume status and remains on the ventilator. We are removing about 50 mL fluid per hour as long as his mean arterial pressure is about 65. He is tolerating CR artery and fluid removal so far however has required Levophed so we are unable to remove fluid any aggressively. 5. Anemia and thrombocytopenia. No significant change and no active bleeding. His platelets are essentially remained about the same for last several days. 26 minutes of critical care time spent on the bedside during which no procedures were performed.
[2018-04-17] MEDS ORDERED: SODIUM ACETATE IV SCH ×10 (18:00)
[2018-04-17] MEDS ORDERED: HumaLOG INSULIN (NovoLOG) PER UNIT SC SCH (18:00)
[2018-04-17] MEDS ORDERED: FAT EMULSION IV 20% 500 ML IV SCH (18:00)
[2018-04-17] MEDS ORDERED: [UNRECOGNIZED DRUG - OTHER] IV SCH ×10 (18:00)
[2018-04-17] MEDS ORDERED: SODIUM CHLORIDE IV SCH ×10 (18:00)
[2018-04-17 18:09] LABS: HEMATOCRIT 30.3 % (42.0-52.0); HEMOGLOBIN 9.5 g/dl (13.5-17.5); MEAN CORPUSCULAR HEMOGLOBIN 24.6 pg (27.0-33.0); MEAN CORPUSCULAR HGB CONC 31.4 g/dl (32.0-36.5); MEAN CORPUSCULAR VOLUME 78.5 fl (80.0-96.0); RED BLOOD COUNT 3.86 10^6/uL (4.30-6.10); WHITE BLOOD COUNT 8.7 10^3/uL (4.0-10.0)
[2018-04-17 18:11] LABS: IONIZED CALCIUM 4.5 MG/DL (4.5-5.3)
[2018-04-17 18:19] LABS: PLATELET COUNT, AUTOMATED 22 10^3/uL (150-450)
[2018-04-17 18:35] LABS: CALCIUM LEVEL 7.9 MG/DL (8.8-10.2); CREATININE FOR GFR 1.48 MG/DL (0.70-1.30); GLOMERULAR FILTRATION RATE 49.9 (>42); MAGNESIUM LEVEL 1.8 MG/DL (1.8-2.4); PHOSPHORUS LEVEL 2.2 MG/DL (2.5-4.9); POTASSIUM SERUM 3.6 MEQ/L (3.5-5.1)
--- NOTE | 2018-04-17 19:34 | IPN ---
DATE OF SERVICE: 04/16/2018 This is the first time that I have seen Mr. Collado move his arms and legs today. It looks to be spontaneous but does not look to be purposeful. He is flexing both arms simultaneously and I am not sure whether this is reflexive or as a reflection of improving mental status. He remains status quo with regard to his acid base status. He is still on dialysis and ultrafiltration. His vital signs show a maximum temperature (t-max) of 98.0 with a heart rate that ranges between 90 and 105 in a sinus rhythm, respiratory rate of 18 to 42 on the ventilator, who is 94 to 100% saturated on an FiO2 of 30. His blood pressure is ranging between 131/62 to 76/49. He still remains on norepinephrine drip. His ventilator is set at a PRVC with a ventilatory support rate of 16, of which he is overbreathing with an FiO2 of 30% and a tidal volume of 450 with a PEEP of 9. PHYSICAL EXAMINATION: He is grossly edematous. LUNGS: His lungs show equal breath sounds on either side at the anterior apex. He has decreased breath sounds at both bases laterally. CARDIAC EXAM: Without murmurs, clicks, gallops. I may or may not hear a friction rub, although it is difficult to ascertain. I cannot feel his point of maximum impulse (PMI). S1, S2 are normal. His subxyphoid wound has serous fluid coming from the top in a slow drip. It does not look like pus but rather ascites. ABDOMEN: Soft, nontender. I hear no bowel sounds. I feel no hepatomegaly. EXTREMITIES: Show 2+ pretibial edema. NECK: Supple. There is no jugular venous distention. No subcutaneous emphysema. Trachea is midline. MOUTH: Shows his mucous membranes to be pink and moist. There is no thrush. He is intubated. EYES: Show his pupils to be equal and small, I do not get reaction from them to light. His sclerae are icteric. NEUROLOGIC: Shows that he is able to move all four extremities. There is no arousal to sound. PSYCHIATRIC: Shows him to be still comatose. His white count today is 10.1 with a hemoglobin and hematocrit of 9.6 and 38.4 with a platelet count of 29. Differential shows 74% neutrophils, 12% lymphocytes, 10% monocytes, 4 eosinophils. There are no immature forms today. Chemistries today show a sodium of 134 with a potassium of 4.0. The remainder of his electrolytes are normal. BUN and creatinine are 17 and 1.77 on dialysis. Glucose is 260 with a calcium of 7.8. Phosphorous and magnesium are normal. Total bilirubin is 6.5 with an AST and ALT of 300 and 550, respectively with an alkaline phosphatase of 135. Albumin is 1.8. His random vancomycin is 22.1. His pericardial fluid is growing the same as his blood cultures of Streptococcus dysgalactiae. It is sensitive to everything except erythromycin and clindamycin. Abdominal CT today showed both right and left pleural effusions with the right pleural effusion larger with compression of the right lung in the right lower lobe. He has ascites over the liver, although I am not sure whether this is the liver ascites or whether it is deep in the costophrenic angle. There is ascitic fluid collection in the right lower quadrant. The pericardiostomy tube is in good place within the pericardium and the pericardial effusion is drained. IMPRESSION: 1. Septic pericarditis and mediastinitis, status post coronary artery surgery 2 months ago. 2. Sepsis. 3. Renal failure. 4. Known hepatocellular carcinoma. 5. Left leg ischemia with showered emboli. 6. Liver failure. 7. Ascites. 8. Right and left pleural effusions. 9. Respiratory failure. 10. Diabetes. PLAN/DISCUSSION: As far as his pericardium is concerned, that is drained and the pericardial tube is in good place. I think that the fluid at the top of his wound is probably ascites. His right lower lobe is compressed and compromised. We are still not sure if we are out of the cantu regarding sepsis, although he seems to have leveled off. We are able to maintain his acid base status on renal dialysis. I recommend that we both therapeutically and diagnostically drain his right chest. I also suggest that we do a paracentesis of the right lower quadrant for diagnosis. Surgery does not feel that this is a problem with his gut, although we cannot be absolutely sure. If we got pus out of his abdomen that would point us in another direction with regard to his sepsis. [facility]
[2018-04-17] MEDS ORDERED: MAG SULF 1GM/100ML (MAG RUN) 1 GM in APPROPRIATE DILUENT 1 EA IV ONE (20:00)
--- NOTE | 2018-04-17 20:48 | IPN ---
DATE: 04/17/2018 There has been essentially no change in Mr. Collado. He is still moving both arms almost simultaneously. This does not look purposeful. I do not think that it is seizures, however. I think that we are keeping up with his acid base status on dialysis. His septic pericarditis is no longer a source of infection at this point in time. Microbiology on the peritoneal fluid and the pleural fluid removed yesterday are pending. His vital signs show a maximum temperature (t-max) of 96.7 with a heart rate that ranges between 92 and 105 in a sinus rhythm, respiratory rate of 21 to 43 on the ventilator with setting in PRVC with an FiO2 of 30% a tidal volume of 450, PEEP of 9. He is overbreathing the ventilator. His blood pressure is ranging between 90/62 to 121/63. He is now down to 3 mcg of Levophed per minute. His intake and output for the past 24 hours has been recorded as 4841 in and 4274 out for a positivity of 567 mL. Since placing his chest tube yesterday, he put out 150 mL from the chest tube itself and 40 mL from the pericardial tube. In the last 18 hours, he has put out 495 mL. Weight is 109.5 kg compared to 112.5 kg yesterday. PHYSICAL EXAMINATION: LUNGS: He has equal breath sounds on either side anteriorly and superiorly. He has breath sounds also weakly laterally and posteriorly. Percussion note is full to the diaphragm anteriorly. CARDIAC EXAM: Without murmurs, clicks, gallops. Specifically, I do not hear a pericardial friction rub. I cannot feel his point of maximum impulse (PMI). S1, S2 are normal. ABDOMEN: Soft with absent bowel sounds. It is nontender as far as I can tell. He is now off his propofol. I feel no hepatomegaly. EXTREMITIES: Show 2+ pretibial edema. He still has multiple areas of ischemia on the right leg. There is an eschar forming on his right thigh. There is no differential swelling of the upper extremities. NECK: Supple. There is no jugular venous distention. No subcutaneous emphysema. Trachea is midline. MOUTH: Shows his mucous membranes to be pink and moist. He is intubated. EYES: Show his pupils to be pinpoint and icteric. Extraocular motions look to be intact; however, he does not respond to verbal command. NEUROLOGIC: Shows spontaneous movement of all extremities, it does not look purposeful. There is no arousal to voice. The family members tell me that they think that he actually squeezed their hand purposefully yesterday. PSYCHIATRIC: Shows him to be comatose. His white count today is 8.9 with a hemoglobin and hematocrit of 9.5 and 29.8, respectively with a platelet count of 32. He was given platelets yesterday just prior to placing the chest tube and the paracentesis. Differential shows 80% neutrophils, 8% lymphocytes, 10% monocytes, 2% eosinophils. There are no immature forms or toxic granulations reported. Electrolytes are essentially normal today with a BUN and creatinine of 20 and 1.69 on continuous dialysis. Glucose is 259. His total bilirubin is 6.8 with an AST of ALT of 194 and 425, essentially unchanged from yesterday. Albumin is unchanged at 1.8. His pleural fluid showed a pH of 7.67 with a glucose of 308. LDH has not been recorded. Fluid albumin is 0.7 with a total protein of 1.5. By albumin and total protein, this looks to be transudative with a serum albumin of 1.8. Without the LDH I cannot be absolutely sure as to the characterization. He has 4500 white cells, 86% of which are neutrophils and 13% are monocytes. This could very well represent a parapneumonic effusion. Ascites shows 12,500 white cells with the same differential. His chest x-ray today has not been done and is pending. IMPRESSION: 1. Septic pericarditis and mediastinitis, status post coronary artery surgery 2 months ago. 2. Sepsis. 3. Renal failure. 4. Known hepatocellular carcinoma. 5. Left leg ischemia with showered emboli. 6. Liver failure. 7. Ascites, drained. 8. Right pleural effusion, drained. PLAN/DISCUSSION: We have sampled all of his major body cavities now. The only positive culture that we have is from the pericardium. The remainder of his cultures are still pending. The pleural fluid did not show any organisms but many white cells on microscopic examination. We are going to have to maintain him. His mental status is worrisome, as he is now off of Propofol. While he can move his extremities and there are no lateralizing signs, there is no evidence of cognition. I will continue his chest tube and his pericardial drain for the present.
[2018-04-17] MEDS ORDERED: CALCIUM GLUCONATE 1,000 MG in D5W MINI-BAG PLUS 100 ML IV ONE (21:00)
[2018-04-17] MEDS: KCL 20MEQ IN 100ML SWI (KRUN) 20 MEQ in APPROPRIATE DILUENT 1 EA IV SCH ×4 (21:56→23:24)
[2018-04-18] VITALS (83 sets, daily range): BP systolic 70–171; BP diastolic 34–125; O2SAT 97
[2018-04-18] MEDS ORDERED: SODIUM PHOSPHATE INJ 30 MMOL in NS 250 ML IV ONE ×2
[2018-04-18] MEDS: METOCLOPRAMIDE INJ 10MG/2ML VIAL (J2765) IV SCH ×4 (00:16→18:04)
[2018-04-18] MEDS: HumaLOG INSULIN (NovoLOG) PER UNIT SC SCH ×4 (00:16→18:04)
[2018-04-18] MEDS: PIPERACILLIN/TAZOBACTAM SOD 3.375 GM in D5W MINI-BAG PLUS 50 ML IV SCH ×4 (02:18→19:36)
[2018-04-18] MEDS: MORPHINE 4 MG/ML 1ML VIAL/SYRINGE (J2270) IV PRN ×5 (02:33→22:24)
[2018-04-18] MEDS: IPRATROPIUM 0.5MG/ALBUTEROL 2.5MG INH SOL UD 3ML (DUONEB)(J7620) NEB SCH ×5 (04:31→23:39)
[2018-04-18] MEDS: HEPARIN 1,000 UNITS/ML 10ML VIAL (FOR RADIOLOGY& DIALYSIS ONLY) IV PRN (04:44)
[2018-04-18 05:01] LABS: HEMATOCRIT 29.2 % (42.0-52.0); HEMOGLOBIN 9.3 g/dl (13.5-17.5); MEAN CORPUSCULAR HEMOGLOBIN 24.7 pg (27.0-33.0); MEAN CORPUSCULAR HGB CONC 31.8 g/dl (32.0-36.5); MEAN CORPUSCULAR VOLUME 77.7 fl (80.0-96.0); RED BLOOD COUNT 3.76 10^6/uL (4.30-6.10); WHITE BLOOD COUNT 9.6 10^3/uL (4.0-10.0)
[2018-04-18 05:02] LABS: PLATELET COUNT, AUTOMATED 22 10^3/uL (150-450)
[2018-04-18 05:45] LABS: CALCIUM LEVEL 8.6 MG/DL (8.8-10.2); CREATININE FOR GFR 1.74 MG/DL (0.70-1.30); GLOMERULAR FILTRATION RATE 41.4 (>42); MAGNESIUM LEVEL 1.9 MG/DL (1.8-2.4); PHOSPHORUS LEVEL 4.1 MG/DL (2.5-4.9); POTASSIUM SERUM 4.1 MEQ/L (3.5-5.1); VANCOMYCIN RANDOM 21.4 UG/ML
[2018-04-18] MEDS: SLF 3 ML SYR IV SCH ×3 (05:55→22:00)
[2018-04-18] MEDS: SODIUM CHLORIDE 0.9% INJ 10 ML SYR IV SCH ×3 (05:55→22:00)
[2018-04-18] MEDS ORDERED: MAG SULF 1GM/100ML (MAG RUN) 1 GM in APPROPRIATE DILUENT 1 EA IV ONE ×2 (06:00→18:30)
[2018-04-18] MEDS: LEVOTHYROXINE 100 MCG (0.1MG) VIAL IV SCH (06:16)
[2018-04-18] MEDS: NOREPINEPHRINE BITARTRATE 16 MG in D5W 484 ML IV SCH (08:12)
[2018-04-18] MEDS: ASPIRIN 81 MG CHEW TABLET NG SCH (08:21)
[2018-04-18] MEDS: CHLORHEXIDINE GLUCONATE 0.12 % 15ML UDC (PERIDEX ORAL RINSE) MT SCH ×2 (08:22→20:19)
[2018-04-18] MEDS: PANTOPRAZOLE 40MG INJ (PROTONIX) (C9113) IV SCH (08:22)
[2018-04-18] MEDS: VANCOMYCIN HCL 1,000 MG, VIAL MATE ADAPTER 1 EACH in D5W 250 ML IV SCH (08:51)
--- NOTE | 2018-04-18 09:17 | REP ---
Portable chest, 06:47 a.m., single AP view, the patient upright: Comparison is 04/16/2018. The endotracheal tube, nasogastric tube and right IJ central venous catheter remain in satisfactory locations, unchanged. The right thoracotomy tube has retracted slightly with the tip peripheral to the right hilus. The right pleural effusion appears to have decreased in size. Diffuse increased radiodensity throughout the left lung previously has improved. This may have been a layering left pleural effusion on the prior study. The patient supine on the prior study. Cardiac size appears enlarged, unchanged. Impression: The right pleural effusion appears to have decreased. The density throughout the left hemithorax noted previously has improved as discussed above. The right thoracotomy tube has retracted somewhat. Electronically Signed by Garrett Argueta MD 04/18/2018 09:09 A
[2018-04-18 09:54] LABS: ABG BASE EXCESS -0.6 (-2.0-2.0); ABG HCO3 22.6 MEQ/L (22.0-26.0); ABG O2 SATURATION 94.9 % (95.0-99.0); ABG PARTIAL PRESSURE O2 73.7 mmHg (75.0-100.0); ABG TOTAL CO2 23.6 MEQ/L (23.0-31.0); ABG pH (ARTERIAL) 7.467 UNITS (7.350-7.450)
[2018-04-18] MEDS ORDERED: HEPARIN 1,000 UNITS/ML 10ML VIAL (FOR RADIOLOGY& DIALYSIS ONLY) IV PRN (12:30)
[2018-04-18] MEDS ORDERED: SODIUM CHLORIDE 0.9% INJ 10 ML SYR IV PRN (12:30)
--- NOTE | 2018-04-18 12:58 | IPNPDOC ---
Text Note Date of Service The patient was seen on 04/18/18. NOTE No acute events overnight. He is tolerating trickle tube feeds at 10/hr with low residuals, and is off of the levophed. BP has been stable. He is also still off of the propofol, but has no purposeful movement. No signs of any bowel movements. VSSAF NAD abd - soft, NT, nd, no longer withdrawing at all to any abdominal palpation labs - below A) 73y/o male with prolonged ileus due to recent pericarditis and sepsis ARF rt leg ischemia altered mental status acute respiratory failure P) advance tube feeds continue supportive care from ICU and thoracic sx will follow Best Mcnair DO VS,Fishbone, I+O VS, Fishbone, I+O Laboratory Tests 04/17/18 17:40 Red Blood Count 3.86 L, Mean Corpuscular Volume 78.5 L, Mean Corpuscular He moglobin 24.6 L, Mean Corpuscular Hemoglobin Concent 31.4 L, Red Cell Distribution Width 19.7 H 04/17/18 17:45 Calcium Level 7.9 L 04/18/18 04:45 Red Blood Count 3.76 L, Mean Corpuscular Volume 77.7 L, Mean Corpuscular Hemoglobin 24.7 L, Mean Corpuscular Hemoglobin Concent 31.8 L, Red Cell Distribution Width 19.9 H, Calcium Level 8.6 L Vital Signs Date Time Temp Pulse Resp B/P (MAP) Pulse Ox O2 Delivery O2 Flow Rate FiO2 04/18/18 12:31 109 28 96/54 (68) 96 30 04/18/18 12:00 97.8 04/18/18 07:44 Ventilator I&O- Last 24 Hours up to 6 AM 04/18/18 05:59 Intake Total 3866.6 ml Output Total 1156 ml Balance 2710.6 ml LAURENT MCNAIR DO Apr 18, 2018 12:58
--- NOTE | 2018-04-18 13:02 | IPNPDOC ---
Text Note Date of Service The patient was seen on 04/17/18. NOTE No acute events overnight. No signs of any bowel movements. He is still on pr essors, and is withdrawing to palpation of the abdomen. No purposeful movement, but he is able to move the upper extremities. VSSAF NAD abd - soft, nd, slight diffuse tenderness to palpation of the abdomen labs - below A) 73y/o male with prolonged ileus due to recent pericarditis and sepsis isc hemic bowel is very unlikely ARF rt leg ischemia altered mental status acute respiratory failure P) start trickle tube feeds again, since review of the recent CT does not show any signs of bowel ischemia reglan ATC continue supportive care from ICU and thoracic sx will follow Best Mcnair DO VS,Tani, I+O VS, Jaede, I+O Laboratory Tests 04/17/18 17:40 Red Blood Count 3.86 L, Mean Corpuscular Volume 78.5 L, Mean Corpuscular Hemoglobin 24.6 L, Mean Corpuscular Hemoglobin Concent 31.4 L, Red Cell Distribution Width 19.7 H 04/17/18 17:45 Calcium Level 7.9 L 04/18/18 04:45 Red Blood Count 3.76 L, Mean Corpuscular Volume 77.7 L, Mean Corpuscular Hemoglobin 24.7 L, Mean Corpuscular Hemoglobin Concent 31.8 L, Red Cell Distribution Width 19.9 H, Calcium Level 8.6 L Vital Signs Date Time Temp Pulse Resp B/P (MAP) Pulse Ox O2 Delivery O2 Flow Rate FiO2 04/18/18 12:31 109 28 96/54 (68) 96 30 04/18/18 12:00 97.8 04/18/18 07:44 Ventilator I&O- Last 24 Hours up to 6 AM 04/18/18 05:59 Intake Total 3866.6 ml Output Total 1156 ml Balance 2710.6 ml LAURENT MCNAIR DO Apr 18, 2018 13:01
[2018-04-18] MEDS ORDERED: ISOVUE-370 76% 100ML VIAL (Q9967) As Ordered ONE (15:11)
--- NOTE | 2018-04-18 16:05 | REP ---
CT Head without and with contrast HISTORY: Hepatic cancer CONTRAST: Isovue 370 75 ml COMPARISON: None Areas of decreased attenuation are present in the periventricular white matter. This represents small-vessel ischemic disease. There is no intraparenchymal hemorrhage, acute infarct, mass or midline shift. There is no abnormal enhancement. The ventricular system and cortical sulci are dilated consistent with mild volume loss. There is no extra cerebral collection. The visualized sinuses are clear. Mucosal thickening is present in the middle ear cavities. The mastoid air cells are underdeveloped. Impression: 1. Small vessel ischemic disease. 2. Mild volume loss. Electronically Signed by Elijah Cr MD 04/18/2018 03:57 P
[2018-04-18] MEDS ORDERED: BACITRACIN OINT 30GM TOP PRN (16:30)
--- NOTE | 2018-04-18 16:47 | CCN ---
DATE: 04/18/2018 Mr. Collado remains critically ill with multiorgan system failure. He remains on mechanical ventilation secondary to severe metabolic acidemia. He continues to require continuous renal replacement therapy. They have been able to remove some but limited fluids. Overnight, his minute ventilation has increased to around 15-17 (had been around 12 yesterday), meaning his respiratory rate is now in the high 30s. He does not appear distressed by this. He was able to tolerate trickle tube feeds at 10 mL per hour yesterday, and those have been increased to 20 mL per hour today. He continues to drain a significant amount of fluid from his right chest tube. He remains without bowel sounds. He has now been off sedation for greater than 24 hours and has no purposeful movement and is not following commands. He continues to periodically raise both hands. He will minimally move his feet; however, he does not respond by blinking when suddenly coming toward his eyes when they are open. He does not respond to voice. He does not turn his head or eyes if clapping by his ears. Despite ischemic toes, he does not withdraw when those are moved. OBJECTIVE: PHYSICAL EXAMINATION: GENERAL: Mr. Collado is intubated and synchronous with the ventilator. VITAL SIGNS: Temperature 98.2 with a maximal temperature of 97.8, blood pressure 111/60 with a mean arterial pressure (MAP) of 77, respiratory rate 32-38, SpO2 of 97% on FiO2 of 0.3. He is on Levophed at 3 mcg. HEENT: Icteric. Pupils 3 mm and sluggish. Nares: Crusted lesion at the bases. Moist mucosa. Oropharynx: Endotracheal (ET) tube and orogastric (OG) tube in place. NECK: Minimal movement. Trachea is midline. Positive jugular venous distention (JVD). CHEST: Normal shape. LUNGS: Symmetric excursion. Good air entry. No wheeze, rhonchi, or significant crackle. There are absent breath sounds posteriorly on the left. Normal inspiratory to expiratory (I-to-E). No accessory muscle usage or retractions. CARDIOVASCULAR: Regular rate and rhythm with a normal S1, S2. No murmur, rub, or gallop appreciated. ABDOMEN: Absent bowel sounds. Mild distention. Soft. No organomegaly appreciated. EXTREMITIES: Without clubbing or cyanosis. He remains with discolored toes on the left, perhaps slightly improved from yesterday. He has 2+ anasarca, again perhaps slightly decreased from yesterday. No clubbing. SKIN: He remains with pruritic rash on the right with some worsened blisters on the right foot. No other rash. He continues to have serosanguineous drainage predominantly from his chest incision. NEUROLOGIC: Noted in the Subjective section. LABORATORY DATA: Today's CBC shows a hemoglobin 9.3, hematocrit 29.2, platelet count 22,000, white blood cell count 9600. Chemistry: Sodium 136, potassium 4.1, chloride 103, bicarbonate 23, anion gap 10, BUN 23, creatinine 1.7, glucose 211, calcium 8.6, phosphorus 4.1, magnesium 1.9, ionized calcium 4.7. Arterial blood gas on pressure-regulated volume control (PRVC) with a tidal volume of 450, positive end-expiratory pressure (PEEP) of 9, and FiO2 of 0.3 was 7.47/32/74 with a measured saturation of 95% and a base excess of -0.6. Yesterday's intake and output showed 3409 in and 1168 out, making him positive 2241. Of the output, 741 was chest tube drainage. Thus far today he has had in 1960 and 179 out, making him positive 780. Of the output, 216 was chest tube drainage. His weight is 107.2 kg. I reviewed his chest x-ray as well as the report from earlier today. That x-ray shows normal-appearing cardiac silhouette and pulmonary vascular shadows. There remains a left-sided pleural effusion. The right side is evacuated by the chest tube. There remains increased interstitial markings. No consolidated region. Both the pleural fluid and ascites cultures from 04/16/2018 are negative to date. IMPRESSION: 1. Septic shock secondary to Streptococcus dysgalactiae subspecies equisimilis. 2. Acute respiratory ventilation secondary to metabolic acidemia leading to mechanical ventilation. 3. 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 Initial pericardial drainage was done on 04/11/2018. 4. Ischemic right foot secondary to presumed emboli from right femoral catheter. 5. Ascites, status post paracentesis yesterday. Cultures negative thus far. 6. Bilateral pleural effusions, thought related to anasarca, status post right chest tube placement 04/16/2018. 7. Acute renal failure leading to continuous renal replacement therapy (CRRT). 8. Diabetes mellitus, on sliding-scale insulin. 9. Thrombocytopenia, chronic, likely accentuated by sepsis and foreign bodies (lines and tubes). Still awaiting outpatient records from [facility], where he had a workup for this prior to his coronary artery bypass graft (CABG) in January 2018. 10. Coronary artery disease (CAD), status post CABG January 2018. 11. Cirrhosis. 12. Hepatocellular carcinoma. Definitive treatment being planned at [facility]. 13. Deep vein thrombosis (DVT) prophylaxis. He is on sequential compression devices (SCDs). 14. Stress ulcer prophylaxis, on proton pump inhibitor. 15. Infectious disease, on vancomycin and Zosyn. He has had several cultures, the predominant organism of which has been Streptococcus dysgalactiae subspecies equisimilis; however, he has also had various cultures positive for methicillin-resistant Staphylococcus aureus (MRSA), Escherichia (E) coli, and Staphylococcus agalactiae with the MRA and Staphylococcus agalactiae from skin wound and not thought to be an active process, but the E. coli was from the initial pericardial drainage. 16. Mental status. At this point he has been off sedation for almost 36 hours without significant movement. He was off sedation most of the 24 hours preceding his procedure ans he remained on sedation overnight, and sedation was stopped yesterday morning. Despite this we have not seen any meaningful movement. If this were meningitis (he is stiff in his neck), he is appropriately treated with vancomycin; however, it is possible that this is a neurologic consequence of his sepsis versus still having sedative on board and being very ill versus other. 17. Nutrition, on total parenteral nutrition (TPN). Tolerating trickle tube feeds. He is also on Reglan. RECOMMENDATIONS: 1. Will continue increasing tube feeds as per surgery. 2. Given his mental status and that he has been off sedation, will obtain an electroencephalogram (EEG) and likely neurology consult. 3. An arterial blood gas was obtained because of his tachypnea. While he was alkalemic, it did not appear to be secondary to distress. In fact, he did not move and did not flinch during drawing of the blood gas, nor did his respiratory rate go up. It is possible that his respiratory alkalemia is, in part, secondary to the constitution of his TPN. Dr. Smith and I had discussed this, and he is going to change that today to see if that alters his respiratory rate. 4. We also may reinstitute propofol after his EEG to see if this alters his respiratory rate, though, again, it does not appear to be secondary to discomfort. I am loathe to go high on propofol, as I would not want to add further calories to his feeding at this time. I am also adverse to Versed given his renal and liver function. He had a 2 mg dose the other day, and it took over 9 hours for that to wear off. 5. Will continue vancomycin and Zosyn at present time. 6. Will continue h is current ventilator settings. 7. Await records from [facility] regarding the etiology of his thrombocytopenia. His heparin-associated antibody was negative. PROGNOSIS: Guarded. CRITICAL CARE TIME: 55 minutes, not including procedure time. [facility]
--- NOTE | 2018-04-18 16:50 | CR ---
DATE OF CONSULTATION: 04/18/2018 Dr. Mistry has already been consulted for this patient on 04/11/2018. This is a reconsult for 04/16/2018 pertaining to the same question of whether there is any possible intra-abdominal source for his infections. I have discussed the case with Dr. Parsons in detail. Apparently since Dr. Mistry saw the patient, he has septic pericarditis and has undergone a pericardial window with Dr. Prasad. He is still requiring extensive pressors, his blood pressure is still marginal, he is in renal failure, respiratory failure, and is failing to improve as quickly as they would expect, therefore we have been asked to reevaluate for possible intra-abdominal source for his continued failure to improve. He has had recent imaging. He has also had failure to tolerate any tube feeds, even at a trickle rate there is no improvement. I reviewed his most recent CT scan from 04/15/2018. There is some acidic fluid in the right lower quadrant. Otherwise the bowel is generally decompressed, slightly thickened and edematous with minimal inflammation pretty much globally. There is no focal segments that appear to be suspicious for any type of obstruction or ischemia or perforation. It is very possible that his pericardial fluid had leaked inside of the abdomen and developed a pocket of fluid in the right lower quadrant that may still contain some bacteria. Recommendation at this time is to drain that pocket of fluid that could be caught. Once that is completed, we can start him on Reglan around the clock, give him 24 hours to recuperate a little bit and then likely re-attempt trickle tube feeds tomorrow and see if he will start to tolerate again. If he shows any signs of decline or if the fluid comes back bloody, then that will be highly suspicious for an ischemic process, in which case I will consider doing a diagnostic laparoscopy to evaluate the abdomen.
[2018-04-18] MEDS: MUPIROCIN 2% OINT 22 GM TUBE TOP SCH ×2 (17:00→20:19)
[2018-04-18 17:23] LABS: IONIZED CALCIUM 4.6 MG/DL (4.5-5.3)
[2018-04-18 17:42] LABS: HEMATOCRIT 28.6 % (42.0-52.0); HEMOGLOBIN 8.8 g/dl (13.5-17.5); MEAN CORPUSCULAR HEMOGLOBIN 23.7 pg (27.0-33.0); MEAN CORPUSCULAR HGB CONC 30.8 g/dl (32.0-36.5); MEAN CORPUSCULAR VOLUME 77.1 fl (80.0-96.0); RED BLOOD COUNT 3.71 10^6/uL (4.30-6.10); WHITE BLOOD COUNT 11.2 10^3/uL (4.0-10.0)
[2018-04-18 17:43] LABS: PLATELET COUNT, AUTOMATED 25 10^3/uL (150-450)
[2018-04-18 17:57] LABS: CALCIUM LEVEL 8.1 MG/DL (8.8-10.2); CREATININE FOR GFR 1.89 MG/DL (0.70-1.30); GLOMERULAR FILTRATION RATE 37.6 (>42); MAGNESIUM LEVEL 1.9 MG/DL (1.8-2.4); PHOSPHORUS LEVEL 3.2 MG/DL (2.5-4.9); POTASSIUM SERUM 4.1 MEQ/L (3.5-5.1)
[2018-04-18] MEDS ORDERED: SODIUM CHLORIDE IV SCH ×8 (18:00)
[2018-04-18] MEDS ORDERED: SODIUM ACETATE IV SCH ×8 (18:00)
[2018-04-18] MEDS ORDERED: [UNRECOGNIZED DRUG - OTHER] IV SCH ×8 (18:00)
[2018-04-18] MEDS ORDERED: FAT EMULSION IV 20% 500 ML IV SCH (18:00)
[2018-04-18] MEDS ORDERED: CALCIUM GLUCONATE 1,000 MG in NS 100 ML IV ONE (19:00)
--- NOTE | 2018-04-18 19:32 | IPN ---
DATE: 04/18/2018 Mr. Collado is seen this morning on his bedside. He remains intubated and sedation has been off for about 24 hours. He is moving his arms but mostly without any purpose. He also has oral gastric tube in place and has been tolerating feeding which is only about 20 mL per hour. He also was given TPN for nutrition. He remains on Levophed which was stopped at some point last evening; however, had to be restarted this morning and his blood pressure remains on the low side. Nursing staff report some the leakage around the chest tube site which is being managed with dressings and Opsite. He is still draining some fluid serosanguineous. CRRT is in progress and has been working very well without any complications or problems. We have been trying to remove fluid about 50 per hour which he has tolerated most of the time and his peripheral edema is slightly improved. PHYSICAL EXAMINATION: Temperature 97.8 degrees Fahrenheit, heart rate 109 per minute and respiratory rate 28 per minute. Blood pressure about 96/54 mmHg and oxygen saturation 96% on 30% FIO2. His head is atraumatic. Neck veins are difficult to be assessed. Oral tracheal and orogastric tubes are in place. His heart sounds are irregular and tachycardiac. Lungs have good bilateral air entry. Abdomen is soft and bowel sounds are present now. Chest tube is in place with a large dressing on it. Extremities have no cyanosis or clubbing. Right lower extremity patchy ischemic areas of skin are unchanged. Neurologically, he is moving his extremities but noncommunicative and not able to follow any commands. Today's labs show a blood gas with pH of 7.46, pCO2 of 32, pO2 73.7 and bicarbonate 24. This morning's chemistry showed sodium 136, potassium 4.1, CO2 23, chloride 103, BUN 23 and creatinine 1.74. Glucose 210 and calcium 8.4. Phosphorus is 4.1 and magnesium 1.9. White blood count (WBC) count 9.6, hemoglobin 9.3 and hematocrit 29.2. Platelets 22,000. PROBLEMS: 1. Septic shock. The patient remains on Levophed. Nursing staff reports that last night Levophed was stopped. However, this morning his mean arterial pressure went down below 60 due to which Levophed at to be restarted. He is also receiving vancomycin and Zosyn for positive cultures from his pericardial and abdominal fluid in addition to blood cultures. 2. Oliguric acute renal failure. The patient remains dialysis dependent and is currently on continuous renal replacement therapy (CRRT). This has been working well and his electrolytes have been in normal range. 3. Metabolic alkalosis. Most likely related to total parenteral nutrition (TPN) and continuous renal replacement therapy (CRRT). I am going to cut down acetate in the TPN and we will see how that effects. 4. Nutrition. The patient is tolerating only about 20 mL of tube feeding for now and will continue with TPN and TPN orders are being written. Once his tube feeding can be increased to at least about 50 mL per hour, then we can consider stopping the TPN. 5. Hypervolemia and generalized edema. Volume status is slowly improving and will continue to remove 50 mL per hour of fluid with a continuous renal replacement therapy (CRRT) which he has tolerated well so far. 6. Hyperglycemia. Blood sugars are improving and insulin is being increased to 24 units in the bag of TPN and we will continue with fingerstick and coverage every 6 hours. 28 minutes of critical care time spent on the bedside during which no procedures were performed.
[2018-04-19] VITALS (27 sets, daily range): BP systolic 71–137; BP diastolic 43–83; O2SAT 99
[2018-04-19] MEDS: PIPERACILLIN/TAZOBACTAM SOD 3.375 GM in D5W MINI-BAG PLUS 50 ML IV SCH ×4 (01:06→19:43)
[2018-04-19] MEDS: MORPHINE 4 MG/ML 1ML VIAL/SYRINGE (J2270) IV PRN ×3 (01:07→16:14)
[2018-04-19] MEDS: IPRATROPIUM 0.5MG/ALBUTEROL 2.5MG INH SOL UD 3ML (DUONEB)(J7620) NEB SCH ×6 (04:25→23:49)
[2018-04-19 05:25] LABS: HEMATOCRIT 28.2 % (42.0-52.0); HEMOGLOBIN 8.9 g/dl (13.5-17.5); MEAN CORPUSCULAR HEMOGLOBIN 24.6 pg (27.0-33.0); MEAN CORPUSCULAR HGB CONC 31.6 g/dl (32.0-36.5); MEAN CORPUSCULAR VOLUME 77.9 fl (80.0-96.0); RED BLOOD COUNT 3.62 10^6/uL (4.30-6.10); WHITE BLOOD COUNT 11.1 10^3/uL (4.0-10.0)
[2018-04-19 05:32] LABS: PLATELET COUNT, AUTOMATED 25 10^3/uL (150-450)
[2018-04-19 05:36] LABS: IONIZED CALCIUM 4.9 MG/DL (4.5-5.3)
[2018-04-19 05:55] LABS: CALCIUM LEVEL 8.2 MG/DL (8.8-10.2); CREATININE FOR GFR 1.95 MG/DL (0.70-1.30); GLOMERULAR FILTRATION RATE 36.3 (>42); PHOSPHORUS LEVEL 3.4 MG/DL (2.5-4.9); POTASSIUM SERUM 4.1 MEQ/L (3.5-5.1)
[2018-04-19 05:56] LABS: ABG BASE EXCESS -8.3 (-2.0-2.0); ABG HCO3 15.3 MEQ/L (22.0-26.0); ABG O2 SATURATION 96.1 % (95.0-99.0); ABG PARTIAL PRESSURE CO2 25.2 mmHg (35.0-45.0); ABG PARTIAL PRESSURE O2 87.6 mmHg (75.0-100.0); ABG STANDARD HCO3 17.7 MEQ/L (22.0-26.0)
[2018-04-19] MEDS: METOCLOPRAMIDE INJ 10MG/2ML VIAL (J2765) IV SCH ×4 (05:59→17:32)
[2018-04-19] MEDS: SODIUM CHLORIDE 0.9% INJ 10 ML SYR IV SCH ×3 (06:00→21:52)
[2018-04-19] MEDS: LEVOTHYROXINE 100 MCG (0.1MG) VIAL IV SCH (06:00)
[2018-04-19] MEDS: HumaLOG INSULIN (NovoLOG) PER UNIT SC SCH ×4 (06:00→17:32)
[2018-04-19] MEDS: SLF 3 ML SYR IV SCH ×3 (06:00→21:53)
--- NOTE | 2018-04-19 06:35 | CR ---
DATE OF CONSULTATION: 04/18/2018 REFERRING PHYSICIAN: Dr. Parsons REASON FOR CONSULTATION: Altered mental status. HISTORY OF PRESENT ILLNESS: Marshall Collado is a 73-year-old man with history of diabetes, acid reflux, coronary artery disease status post coronary artery bypass graft (CABG) in January 2018 and hepatocellular carcinoma. The patient's and daughter were admitted at [facility]. He came to visit them in the hospital. The patient was visiting his when he suddenly started feeling weak and dizzy and was noted to have chills and rigors. He was brought to the emergency department and was noted to be severely hypotensive. He was noted to be febrile with leukocytosis. He was admitted to the intensive care unit for septic shock. His lactic acid ranged between 6-20 during his hospital stay. He continued to require pressors to improve his blood pressure. He was found to have cardiac tamponade from pericardial effusion and infection. The patient was admitted on April 10, 2018. Since then, he has been intubated, requiring pressor, continuous renal replacement therapy and had a pericardial window made for drainage of his pericardial tamponade and effusion. He has elevated liver enzymes and bilirubin. He has anion gap metabolic acidosis. He has been off sedation for 30 hours and does not respond. He spontaneously moves both arms around. He has minimal withdrawal to pain. PAST MEDICAL HISTORY: 1. Insulin-dependent diabetes. 2. Liver cirrhosis and hepatocellular carcinoma. 3. Psoriasis. 4. Acid reflux. 5. Dyslipidemia. 6. Hypertension. 7. Coronary artery disease status post CABG in January 2018 at [facility]. SOCIAL HISTORY: He is a remote smoker. ALLERGIES: - PHENOL - INSULIN DETEMIR HOME MEDICATIONS: - aspirin - folic acid - Lasix - insulin - levothyroxine - lisinopril - metformin - Protonix REVIEW OF SYSTEMS: Could not be obtained. PHYSICAL EXAMINATION: Temperature 98.1, pulse 109, blood pressure 123/56, 97% saturation on 30% FIO2 and mechanical ventilation. The patient is drowsy and not arousable to verbal or painful stimuli. He is intubated on mechanical ventilator. He has a poor gag reflex. He has minimal light reflex in both eyes. He has conjugate roving eye movements on both sides. He has positive corneal reflex both sides. He does not withdraw to pain. He sometimes spontaneously moves both arms. Sensory, cerebellar, motor and gait testing could not be performed. His plantars are mute bilaterally. Deep tendon flexes are mute throughout. DIAGNOSTIC STUDIES: CT scan of the head showed small vessel ischemic disease of brain. His AST is 194 with ALT 425, total bilirubin 6.8 and direct bilirubin 5.6. Platelet count 22,000, hemoglobin 9.3 and PTT 46.1. His EEG showed diffuse delta 2-4 Hz activity throughout the recording. ASSESSMENT: 1. Coma due to septic shock. 2. Multi organ failure including cardiac tamponade, liver and renal failure. 3. Hepatocellular carcinoma. 4. Respiratory failure. PLAN: 1. His overall prognosis is guarded due to multiple organ failure as described above. Even if patient somehow survives his multiorgan failure, he has hepatocellular carcinoma. His functional capacity and ability to go through treatment of his liver cancer would be significantly reduced by his current illness. 2. Will reexamine the patient tomorrow to follow any improvement in his neurological status. I have requested nurses to keep him off sedation in daytime tomorrow if possible. He has been off sedation for 30 hours with today's exam in which he barely had a few intact brain stem reflexes. PAULINO
--- NOTE | 2018-04-19 06:43 | EEG ---
DATE OF EE04/18/2018 REFERRING PHYSICIAN: Dr. Sobia Childs DIAGNOSIS: Altered mental status. EEG NUMBER: 19 - 33 HISTORY: Patient is a 73-year-old man who was admitted at [facility] due to septic shock and multiorgan failure. Patient is on mechanical ventilation with pressor support, IV antibiotics, continuous renal replacement therapy, hepatocellular carcinoma, and has been unresponsive. He has been off sedation for 30 hours. This EEG was done to assess degree of encephalopathy and rule out epileptic potential. Patient is currently on Protonix, aspirin, Zosyn, propofol, vancomycin, etc. TECHNICAL DESCRIPTION: This digital EEG was recorded by 21 scalp, ear and two EKG electrodes and was reviewed in bipolar and referential montages following reformatting in 10-20 international electrode placement system. INTERPRETATION: Patient was noted to be in drowsy state during this EEG. Background rhythm consisted of 3-4 Hz delta activity measuring 15-20 microvolts in amplitude, which was symmetric bilaterally. No sleep was noted. Patient remained unresponsive throughout this study. Hyperventilation could not be performed. No focal, lateralizing or epileptiform abnormalities were seen. No relevant clinical activity was noted. Photic stimulation remained unremarkable. EKG revealed sinus rhythm. CONCLUSION: This EEG in an intubated, mechanically ventilated patient is abnormal due to presence of generalized slowing and disorganization of background consistent with nonspecific diffuse cerebral dysfunction such as seen in encephalopathy due to multiple potential causes including infectious, hypoxic, toxic, metabolic, medication related, or multifocal structural brain abnormalities. No epileptiform abnormalities were seen. Clinical correlation is recommended.
--- NOTE | 2018-04-19 07:43 | IPNPDOC ---
Text Note Date of Service The patient was seen on 04/19/18. NOTE No acute events overnight. No signs of any bowel movements, but he is tolerating tube feeds at 40cc/hr. VSSAF NAD abd - soft, nd, NT, no grimacing to palpation labs - below A) 73y/o male with prolonged ileus due to recent pericarditis ARF rt leg ischemia altered mental status acute respiratory failure P) advance TF to goal this am likely d/c TPN once TF to goal and he has a BM reglan ATC continue supportive care from ICU and thoracic sx will follow as needed Best Mcnair DO VS,Fishbone, I+O VS, Fishbone, I+O Laboratory Tests 04/18/18 17:14 Red Blood Count 3.71 L, Mean Corpuscular Volume 77.1 L, Mean Corpuscular Hemogl obin 23.7 L, Mean Corpuscular Hemoglobin Concent 30.8 L, Red Cell Distribution Width 19.9 H, Calcium Level 8.1 L 04/19/18 05:11 Red Blood Count 3.62 L, Mean Corpuscular Volume 77.9 L, Mean Corpuscular Hemoglobin 24.6 L, Mean Corpuscular Hemoglobin Concent 31.6 L, Red Cell Dist ribution Width 19.8 H, Calcium Level 8.2 L Vital Signs Date Time Temp Pulse Resp B/P (MAP) Pulse Ox O2 Delivery O2 Flow Rate FiO2 04/19/18 07:15 107 33 99 30 04/19/18 07:00 137/56 (83) 04/19/18 04:00 98.8 04/18/18 07:44 Ventilator I&O- Last 24 Hours up to 6 AM 04/19/18 06:00 Intake Total 4946.0 ml Output Total 3822 ml Balance 1124.0 ml LAURENT MCNAIR DO Apr 19, 2018 07:43
[2018-04-19] MEDS: CHLORHEXIDINE GLUCONATE 0.12 % 15ML UDC (PERIDEX ORAL RINSE) MT SCH ×2 (08:29→19:44)
[2018-04-19] MEDS: PANTOPRAZOLE 40MG INJ (PROTONIX) (C9113) IV SCH (08:29)
[2018-04-19] MEDS: ASPIRIN 81 MG CHEW TABLET NG SCH (08:29)
[2018-04-19] MEDS: MUPIROCIN 2% OINT 22 GM TUBE TOP SCH ×4 (08:30→21:00)
--- NOTE | 2018-04-19 08:38 | REP ---
Chest one-view HISTORY: Intubation Comparison: 04/18/2018 Parenchymal density is present in the lower lobes consistent with atelectasis or infiltrates. A chest tube is present in the right hemithorax. There is no pneumothorax. There is blunting of the left costophrenic angle due to small pleural effusion. The cardiac silhouette is enlarged. The pulmonary vasculature is normal in appearance. An ET tube, NG tube and central line are present. Impression: 1. Bibasilar atelectasis or infiltrates. 2. Small left pleural effusion. 3. Cardiomegaly. Electronically Signed by Elijah Cr MD 04/19/2018 08:30 A
[2018-04-19 08:50] LABS: VANCOMYCIN RANDOM 16.9 UG/ML
[2018-04-19] MEDS: VANCOMYCIN HCL 1,000 MG, VIAL MATE ADAPTER 1 EACH in D5W 250 ML IV SCH (09:12)
--- NOTE | 2018-04-19 09:40 | REP ---
AP PORTABLE CHEST: 04/19/2018 at 08:33 AM. Comparison: 04/19/2018, 04/18/2018. CT chest 04/12/2018. Clinical history: Check ET tube position. Findings: Endotracheal tube is 4.6 cm from the roselyn. Previously 5.7 cm early this morning. A nasogastric tube, right jugular central catheter, right chest tube and pericardial drain were unchanged. The extensive basilar consolidative opacity on the left and less on the right are again seen representing infiltrates or compressive atelectasis. The presence of pleural effusion on the left is noted and likely on the right. No other change. Impression: 1. Lines and tubes as described. The endotracheal tube is 4.6 cm above the roselyn. There are no other changes from earlier this morning. Electronically Signed by Souleymane Vences MD 04/19/2018 07:47 P
[2018-04-19] MEDS: VANCOMYCIN HCL 500 MG in D5W MINI-BAG PLUS 100 ML IV SCH (10:24)
--- NOTE | 2018-04-19 10:41 | PHACANCOPD ---
PHARMACY VANCOMYCIN DOSING Pt Demographics Demographics Patient Age:73 , Weight:106.400 , Gender: male Adjusted Body Weight Vancomycin Vancomycin indication: SEPSIS Vancomycin Target Ranges: 15-20 mcg/ml Vancomycin Load Y/N: Yes Load Dose Date Time Vancomycin Load Dose: 2GM Date: 04/10/18 Time: 21:00 Vancomycin Dose Date: 04/15/18. Current Vancomycin Dose: [1500mg q24h] Intermittent Dosing?: No Labs Micro Microbiology 04/10/18 Blood Culture - Final, Complete Strep Dysgalactiae Sp Equisim 04/10/18 Blood Culture - Final, Complete Strep Dysgalactiae Sp Equisim 04/16/18 Acid Fast Stain, Ordered Pending 04/16/18 Mycobacterial Culture, Ordered Pending 04/16/18 Fungal Smear, Ordered Pending 04/16/18 Fungal Culture, Ordered Pending 04/16/18 Acid Fast Stain, Received Pending 04/16/18 Mycobacterial Culture, Received Pending 04/16/18 Fungal Smear, Received Pending 04/16/18 Fungal Culture, Received Pending 04/16/18 Gram Stain - Final, Complete 04/16/18 Body Fluid Culture - Final, Complete 04/16/18 Anaerobic Culture - Final, Complete 04/16/18 Acid Fast Stain, Received Pending 04/16/18 Mycobacterial Culture, Received Pending 04/16/18 Fungal Smear, Received Pending 04/16/18 Fungal Culture, Received Pending 04/16/18 Gram Stain - Final, Complete 04/16/18 Body Fluid Culture - Final, Complete 04/12/18 Gram Stain - Final, Complete 04/12/18 Body Fluid Culture - Final, Complete 04/12/18 Acid Fast Stain, Received Pending 04/12/18 Mycobacterial Culture, Received Pending 04/12/18 Fungal Smear, Received Pending 04/12/18 Fungal Culture, Received Pending 04/12/18 Gram Stain - Final, Complete 04/12/18 Body Fluid Culture - Final, Complete Strep Dysgalactiae Sp Equisim 04/12/18 Anaerobic Culture - Final, Complete 04/11/18 Gram Stain - Final, Complete 04/11/18 Body Fluid Culture - Final, Complete Escherichia Coli Strep Dysgalactiae Sp Equisim 04/11/18 Acid Fast Stain, Received Pending 04/11/18 Mycobacterial Culture, Received Pending 04/11/18 MRSA Screen - Final, Complete Staph.aureus Methicillin Resis 04/10/18 Respiratory Virus Panel (PCR) (KATHERIN) - Final, Complete 04/11/18 Gram Stain - Final, Complete 04/11/18 Wound Culture - Final, Complete Staph.aureus Methicillin Resis Strep Agalactiae Group B Creatinine Clearance Date:04/15/18. Creatinine Clearance: [ ~41 ml/min]. Assessment and Plan Maintaining Current Dose?: No Reason for dose change: Other Pharmacist Note Pharmacist Note 04/19/18: Day #10 vancomycin therapy. Random level this morning resulted at 16.9mcg/ml. Since the patient's level is now trending back down we will resume his previous 1500mg Q24H dosing. We will continue to monitor and make further dose adjustments if needed. 04/17/18: Day #8 vancomycin therapy. Random level this morning resulted at 24mcg/ml. Although this extrapolates to a trough level ~19mcg/ml, I will reduce the dose as the random yesterday was 22.2mcg/ml and the patient appears to be accumulating. We will decrease the dosing today to 1g IV Q24H. The patient remains on CRRT. A follow-up random vancomycin level has been scheduled to be drawn tomorrow with morning labs. We will continue to monitor and make further dose adjustments if needed. Date: 04/15/18. PharmD note:Random level of 20.6 extrapolates to a trough of 16- 17 which is within target range. Will continue current dosing. Will continue to monitor and make adjustments as needed. MARIA LUISA CERDA PHARMACY Apr 19, 2018 10:41
--- NOTE | 2018-04-19 10:46 | CCN ---
DATE OF VISIT: 04/19/2018 START TIME: 0920 hours STOP TIME: 0958 hours I attended Marshall Collado here in the intensive care unit. The patient was examined and his chart reviewed. He remains intubated, mechanically ventilated. He requires minimal sedation. T-max overnight 100.7, blood pressure 70-130s but he has been able to be weaned off his Levophed. Heart rate generally in the 100s with a sinus mechanism. Respiratory rate generally in the mid 20s and he does over breathe the ventilator. He remains on CRRT. They have been removing about a liter per day. Most recent laboratories show sodium of 137, K of 4.1, chloride 104, CO2 23, BUN 27, creatinine 1.95. White blood cell count 11.1, hemoglobin 8.9, platelet count remains at 25,000. Ammonia level is pending. Vancomycin random 16.9. Blood gas done this morning remains on a PEEP of 9, FiO2 of 30%, PRVC rate of 16, tidal volume 450 has a pH of 7.40, pCO2 of 25.2, PaO2 of 87.6. Chest x-ray done this morning shows persistent edema. Endotracheal tube is within the aortic knob and is able 4 cm above the roselyn. Right chest tube is in place. No other new findings. On exam, he remains essentially unresponsive. Sclera are icteric. He has some necrotic areas just within each nares. Other membranes are moist. Trachea is in the midline. Chest shows the right thoracostomy tube. He remains with oozing from his sternotomy. Breath sounds are diminished. There are basilar crackles bilaterally. Cardiac exam is distant, but regular. Peripheral pulses markedly diminished. He is diffusely edematous. Abdomen is distended. I believe there are faint bowel sounds in the distance. No obvious organomegaly palpable, although exam is typical. Extremities do show his necrotic right great toe with multiple punctate necrotic areas throughout the right leg. The left lower extremity maybe shows some minimal mottling at the knee. Neurologically he does not respond to stimuli. He intermittently raises his arms. He does over breathe the ventilator. The most pressing problems requiring my presence at the beside: 1. Respiratory alkalosis. 2. Metabolic acidosis, multifactorial. 3. Sepsis with shock. 4. Renal failure. 5. Hepatocellular carcinoma. 6. Pericardial effusion with infection. 7. Thrombocytopenia. Cultures have all been reviewed and no obvious new data. He remains on broad spectrum antimicrobials in the form of Zosyn and vancomycin. These will be continued. I had a long discussion at the bedside with Dr. Smith from nephrology. At this point, his prognosis guarded at best. I am concerned about his neurologic status in the midst of all this. Underneath it he still has hepatocellular carcinoma. I appreciate the involvement of vascular surgery, cardiothoracic surgery, nephrology, as well as neurology, as well as general surgery. Nutritionally he is at 55 mL on his tube feeds. He has not had a bowel movement yet but he is getting suppository today. Hopefully we will be able to discontinue his TPN in the next 24-48 hours. He continues on chronic renal replacement therapy and this being managed by Dr. Smith. Dr. Parsons was to have a discussion yesterday with the healthcare proxy, daughter, and I do not know the outcome of that yet. I will try to speak to her today if at all possible. I will try to minimize his sedation in view of his mental status. I await the formal interpretation of his EEG. In view of his multiorgan dysfunction and his lack of real progress, there is a very high likelihood that he may not survive this hospitalization. We will continue as outlined above. I left the bedside at 0958 hours. A total of 38 minutes of critical care were delivered at the bedside, not including procedures.
[2018-04-19] MEDS ORDERED: BISACODYL 10 MG SUPP As Ordered ONE (11:48)
[2018-04-19] MEDS ORDERED: BISACODYL 10 MG SUPP PR PRN (12:00)
[2018-04-19] MEDS: SANTYL OINT 30GM TOP SCH (15:12)
--- NOTE | 2018-04-19 15:17 | IPN ---
DATE: 04/19/2018 Mr. Collado is seen this morning in intensive care unit on his bedside. He remains intubated and without any sedation. He is still not able to follow any commands and his arms are up in the air but no purposeful movement. He is off Levophed now and blood pressure remains just about 100 mmHg systolic. He remains on CRRT with minimal urine output. His volume status has improved, and we have been removing fluid for the last 3 days. Today his CVP is reported at about 13. PHYSICAL EXAMINATION: Temperature 100.7 degrees Fahrenheit, heart rate 110 per minute and respiratory rate 30 per minute. Blood pressure 96/48 mmHg and oxygen saturation 99% on 30% FIO2. The patient has an orotracheal and orogastric tube in place. His heart sounds are tachycardiac, and lungs have moderate bilateral air entry. His abdomen is soft and bowel sounds are present. Chest tube in place with large dressing on it. Extremities have no cyanosis or clubbing. Upper extremity edema has improved significantly and lower extremity edema is still present. Right lower extremity mottling and necrotic skin patchy areas are essentially unchanged. Neurologically, he remains unresponsive, even without a sedation for a couple of days now. LABORATORIES: Today's labs show a WBC count 11.1, hemoglobin 8.9 and hematocrit 28.2. Platelets are 25,000. Sodium 137, potassium 4.1, CO2 23, BUN 27 and creatinine 1.95. Calcium level is 8.2, phosphorus 3.4 and magnesium 2.0. Today's blood gas showed pH of 7.40, pCO2 25 and pO2 87.6 and bicarbonate 17. His serum ammonia level is only 12. PROBLEMS: 1. Septic shock. The patient remains hypotensive though he is now off Levophed. He remains on antibiotics. 2. Oliguric acute renal failure. The patient remains on CRRT. His volume status has improved and upper extremity edema has completely resolved. He still has lower extremity edema but his albumin level is also low. He just came off Levophed, and I am going to maintain his volume status even today and not remove any fluid for the next 24 hours. We will reevaluate him tomorrow and consider fluid removal if needed. CRRT orders are being renewed. He is very well dialyzed and his electrolytes are within normal range. 3. Nutrition. The patient is now receiving tube feeding at 55 mL per hour. He has also been on TPN, and I am going to continue it as the patient still has not had a bowel movement and surgery wants to continue with TPN until he has a bowel movement. TPN orders are also being renewed. 4. Altered mentation. The patient had a EEG, which reported no epileptiform activity. He has not been responding even though he has been without any sedation. At this point, we will continue to manage his electrolytes and fluid components. Dr. Becker is going to discuss with the family about plan of care. Apparently, the patient also has known hepatocellular carcinoma and his long-term prognosis is probably not good, even with improvement in his septic shock. 26 minutes of critical care time was spent on bedside, during which no procedures were performed.
[2018-04-19 17:39] LABS: IONIZED CALCIUM 4.9 MG/DL (4.5-5.3)
[2018-04-19 17:44] LABS: HEMATOCRIT 27.4 % (42.0-52.0); HEMOGLOBIN 8.6 g/dl (13.5-17.5); MEAN CORPUSCULAR HEMOGLOBIN 24.4 pg (27.0-33.0); MEAN CORPUSCULAR HGB CONC 31.4 g/dl (32.0-36.5); MEAN CORPUSCULAR VOLUME 77.6 fl (80.0-96.0); RED BLOOD COUNT 3.53 10^6/uL (4.30-6.10); WHITE BLOOD COUNT 12.1 10^3/uL (4.0-10.0)
[2018-04-19 17:46] LABS: PLATELET COUNT, AUTOMATED 28 10^3/uL (150-450)
[2018-04-19] MEDS ORDERED: SODIUM CHLORIDE IV SCH ×10 (18:00)
[2018-04-19] MEDS ORDERED: SODIUM ACETATE IV SCH ×10 (18:00)
[2018-04-19] MEDS ORDERED: FAT EMULSION IV 20% 500 ML IV SCH (18:00)
[2018-04-19] MEDS ORDERED: [UNRECOGNIZED DRUG - OTHER] IV SCH ×10 (18:00)
[2018-04-19 18:08] LABS: CALCIUM LEVEL 8.6 MG/DL (8.8-10.2); CREATININE FOR GFR 2.05 MG/DL (0.70-1.30); GLOMERULAR FILTRATION RATE 34.2 (>42); MAGNESIUM LEVEL 2.1 MG/DL (1.8-2.4); PHOSPHORUS LEVEL 3.5 MG/DL (2.5-4.9)
[2018-04-19] MEDS: HEPARIN 1,000 UNITS/ML 10ML VIAL (FOR RADIOLOGY& DIALYSIS ONLY) IV PRN (22:42)
[2018-04-20] VITALS (33 sets, daily range): BP systolic 82–144; BP diastolic 39–74; O2SAT 97–99
[2018-04-20] MEDS: HumaLOG INSULIN (NovoLOG) PER UNIT SC SCH ×4 (00:18→17:48)
[2018-04-20] MEDS: METOCLOPRAMIDE INJ 10MG/2ML VIAL (J2765) IV SCH ×4 (00:18→17:49)
[2018-04-20] MEDS: PIPERACILLIN/TAZOBACTAM SOD 3.375 GM in D5W MINI-BAG PLUS 50 ML IV SCH ×4 (02:01→20:54)
[2018-04-20] MEDS: IPRATROPIUM 0.5MG/ALBUTEROL 2.5MG INH SOL UD 3ML (DUONEB)(J7620) NEB SCH ×5 (04:40→21:21)
[2018-04-20] MEDS: SODIUM CHLORIDE 0.9% INJ 10 ML SYR IV SCH ×3 (05:56→20:54)
[2018-04-20] MEDS: LEVOTHYROXINE 100 MCG (0.1MG) VIAL IV SCH (05:56)
[2018-04-20] MEDS: SLF 3 ML SYR IV SCH ×3 (06:00→20:57)
[2018-04-20 06:06] LABS: HEMATOCRIT 27.8 % (42.0-52.0); HEMOGLOBIN 8.8 g/dl (13.5-17.5); MEAN CORPUSCULAR HEMOGLOBIN 24.5 pg (27.0-33.0); MEAN CORPUSCULAR HGB CONC 31.7 g/dl (32.0-36.5); MEAN CORPUSCULAR VOLUME 77.4 fl (80.0-96.0); RED BLOOD COUNT 3.59 10^6/uL (4.30-6.10); WHITE BLOOD COUNT 19.3 10^3/uL (4.0-10.0)
[2018-04-20 06:09] LABS: PLATELET COUNT, AUTOMATED 29 10^3/uL (150-450)
[2018-04-20 06:13] LABS: ABG BASE EXCESS -5.5 (-2.0-2.0); ABG HCO3 17.4 MEQ/L (22.0-26.0); ABG O2 SATURATION 97.9 % (95.0-99.0); ABG PARTIAL PRESSURE CO2 25.8 mmHg (35.0-45.0); ABG STANDARD HCO3 19.9 MEQ/L (22.0-26.0); ABG TOTAL CO2 18.2 MEQ/L (23.0-31.0); ABG pH (ARTERIAL) 7.447 UNITS (7.350-7.450)
[2018-04-20 06:27] LABS: CALCIUM LEVEL 8.7 MG/DL (8.8-10.2); CREATININE FOR GFR 2.1 MG/DL (0.70-1.30); GLOMERULAR FILTRATION RATE 33.3 (>42); MAGNESIUM LEVEL 1.9 MG/DL (1.8-2.4); PHOSPHORUS LEVEL 3.2 MG/DL (2.5-4.9); POTASSIUM SERUM 3.7 MEQ/L (3.5-5.1)
[2018-04-20] MEDS ORDERED: KCL 20MEQ IN 100ML SWI (KRUN) 20 MEQ in APPROPRIATE DILUENT 1 EA IV ONE ×4 (06:45→20:00)
[2018-04-20] MEDS ORDERED: MAG SULF 1GM/100ML (MAG RUN) 1 GM in APPROPRIATE DILUENT 1 EA IV ONE (06:45)
--- NOTE | 2018-04-20 07:50 | REP ---
Portable chest, 06:54 a.m., single AP view, the patient upright: Comparison is 04/19/2018. The endotracheal tube remains in satisfactory location in the trachea at the level of the aortic arch, above the roselyn, unchanged. The right IJ central venous catheter remains with its tip in the superior vena cava in satisfactory location, unchanged. The right thoracotomy tube tip is in the midclavicular line in satisfactory location, unchanged. There is tubing superimposed over the abdomen as previously, unchanged. There is discoid atelectasis inferomedially in the right lung, unchanged. There is an infiltrate in the left upper lobe apex. Cardiac size is normal. Electronically Signed by Garrett Argueta MD 04/20/2018 07:41 A
[2018-04-20] MEDS: ASPIRIN 81 MG CHEW TABLET NG SCH (08:25)
[2018-04-20] MEDS: PANTOPRAZOLE 40MG INJ (PROTONIX) (C9113) IV SCH (08:25)
[2018-04-20] MEDS: CHLORHEXIDINE GLUCONATE 0.12 % 15ML UDC (PERIDEX ORAL RINSE) MT SCH ×2 (08:25→20:54)
[2018-04-20] MEDS: VANCOMYCIN HCL 1,000 MG, VIAL MATE ADAPTER 1 EACH in D5W 250 ML IV SCH (08:25)
[2018-04-20] MEDS: MUPIROCIN 2% OINT 22 GM TUBE TOP SCH ×4 (08:26→20:57)
[2018-04-20] MEDS: SANTYL OINT 30GM TOP SCH (08:26)
[2018-04-20] MEDS: VANCOMYCIN HCL 500 MG in D5W MINI-BAG PLUS 100 ML IV SCH (09:07)
[2018-04-20] MEDS: MORPHINE 4 MG/ML 1ML VIAL/SYRINGE (J2270) IV PRN (09:38)
--- NOTE | 2018-04-20 11:20 | CCN ---
DATE: 04/20/2018 START TIME: 955 STOP TIME: 1034 I again attended Marshall Collado here in the intensive care unit. Patient is examined and his chart is reviewed. He remains off vasopressors. Requiring only morphine. Maximum temperature (T-max) overnight 97.9, blood pressure 90-140s, heart rate generally in the low 100s with a sinus mechanism. Respiratory rate generally in the mid 20s to the low 30s without accessory muscle use. He remains in continuous renal replacement therapy (CRRT). He was kept even yesterday with a total of 3985 in with 3895 mL out. The lab does show white blood cell count 19.3, hemoglobin 8.8, platelet count 29,000. Sodium 138, potassium 3.7, chloride 103, CO2 22, BUN 35, creatinine 2.1. Blood gas on a PRVC mode range of 16, tidal volume 450, PEEP of 8, FiO2 30%. He has a pH of 7.447, pCO2 25.8, pO2 98. Chest x-ray shows lines and tubes in good position. No new findings. No new culture results available. Chest tube remains with significant drainage. Pericardial tube with minimal drainage. EEG done on 04/18/2018 shows generalized slowing and disorganized background consistent with diffuse cerebral dysfunction. Toxic metabolic encephalopathy versus multifocal structural brain abnormality. No epileptiform activity. On exam, he remains essentially unresponsive to stimuli. He does have spontaneous eye opening. He does have corneal reflexes as well as cough and gag. He does over-breath the ventilator. He does not track movements in the room and no convincing response to confrontational movements. His pupils date of examination react. They are mildly icteric. Trachea is in the midline. Chest shows his right chest tube and pericardial tube. Sternotomy incision still has some serosanguineous drainage. Expansion is symmetric with diminished breath sounds at the bases. Occasional rhonchus. Cardiac exam is tachycardic. Peripheral pulses are markedly diminished. His diffuse edema is unchanged. Abdomen is obese, mildly distended. There are bowel sounds in the distance. I do believe there is significant ascites. Extremities show no cyanosis or clubbing. The ischemic changes of his right foot look a little less pronounced today. Neurologically, he does move extremities spontaneously but nothing purposeful. Most pressing problems requiring my immediate presence at the bedside: Respiratory failure requiring mechanical ventilator support. Sepsis with shock secondary to infected sternotomy. Infected pericarditis. Hepatocellular carcinoma. Adrenal failure. Encephalopathy, multifactorial. Thrombocytopenia, chronic. I had a very lengthy discussion at the bedside yesterday with his daughters. I am told this morning they had a very lengthy conversation as well with neurology who relayed to them the poor prognosis regarding meaningful neurologic recovery. At this point, I have got no word from them regarding limiting his code status or changes in our level of aggressive intervention. In view of that, for now we will continue with his current antimicrobials. He remains on CRRT and the timing of the decision to change to regular dialysis will be made by nephrology. He has been tolerating tube feeds. Hopefully we can discontinue his total parenteral nutrition (TPN) today and maintain him on just enteral feeds. No changes in his antimicrobials today. His platelet count is holding for now. I await decision from the family regarding any changes in his intervention but for now we will proceed as outlined above. His prognosis remains guarded at best and there is a very high likelihood that he will not survive this hospitalization and I am very concerned that he will not progress regarding neurologic function. Underneath all of this, we still have the dominique reality of his hepatocellular carcinoma. I left the bedside at 1034 hours. A total of 38 minutes of critical care time devoted at the bedside not including procedures.
[2018-04-20] MEDS ORDERED: NOREPINEPHRINE 4 MG/4 ML AMP As Ordered ONE ×2 (17:09→17:11)
[2018-04-20] MEDS: NOREPINEPHRINE BITARTRATE 16 MG in D5W 484 ML IV SCH ×5 (17:23→18:30)
[2018-04-20 18:02] LABS: HEMATOCRIT 31.4 % (42.0-52.0); MEAN CORPUSCULAR HEMOGLOBIN 24.6 pg (27.0-33.0); MEAN CORPUSCULAR HGB CONC 31.8 g/dl (32.0-36.5); MEAN CORPUSCULAR VOLUME 77.1 fl (80.0-96.0); RED BLOOD COUNT 4.07 10^6/uL (4.30-6.10); WHITE BLOOD COUNT 29.3 10^3/uL (4.0-10.0)
[2018-04-20 18:06] LABS: PLATELET COUNT, AUTOMATED 50 10^3/uL (150-450)
[2018-04-20 18:23] LABS: CALCIUM LEVEL 8.7 MG/DL (8.8-10.2); CREATININE FOR GFR 2.18 MG/DL (0.70-1.30); GLOMERULAR FILTRATION RATE 31.9 (>42); MAGNESIUM LEVEL 2.1 MG/DL (1.8-2.4); PHOSPHORUS LEVEL 3.3 MG/DL (2.5-4.9); POTASSIUM SERUM 3.7 MEQ/L (3.5-5.1)
--- NOTE | 2018-04-20 23:56 | IPN ---
DATE: 04/20/2018 Mr. Collado is seen this morning on his bedside in intensive care unit. He remains unresponsive, though he has been off sedation for several days. He is still on the ventilator and also dialysis dependent with continuous renal replacement therapies (CRRT). He has been off Levophed and blood pressure is maintained just about 90 mmHg systolic and a mean arterial pressure of about 65 mmHg. Nursing staff reports that he did have a couple of small bowel movements and is tolerating his tube feeding well. He is also on total parenteral nutrition (TPN). PHYSICAL EXAMINATION: VITAL SIGNS: Temperature 97.9 degrees Fahrenheit, heart rate 104 per minute and respiratory rate 34 per minute. Blood pressure 97/48 mmHg and oxygen saturation 97% on 30% oxygen. HEENT: His head is atraumatic. Neck veins seem more prominent. Orotracheal and orogastric tubes are in place. HEART: Sounds are tachycardiac. LUNGS: Lungs with diminished breath sounds at dependent parts. ABDOMEN: Abdomen is much more distended with ascites and bowel sounds are hypoactive. Chest tube is in place for a pericardial effusion. EXTREMITIES: Extremities have no cyanosis or clubbing. He has trace of edema on upper extremities and significant edema on lower extremities. NEUROLOGICAL: Neurologically he remains unresponsive. LABORATORIES: Today's labs show white blood cell (WBC) count 19.3, hemoglobin 8.8 and hematocrit 27.8. Platelets 29,000. Sodium 138, potassium 3.7, chloride 103, CO2 22, BUN 35 and creatinine 2.10. Glucose 260 and calcium 8.7. PROBLEMS: 1. Septic shock. The patient is currently off Levophed and remains on intravenous antibiotics. His blood pressure is still low. 2. Oliguric acute renal failure. The patient is dialysis dependent and remains on continuous renal replacement therapies (CRRT). This has been functioning very well and his electrolytes are within normal range. 3. Hypervolemia and generalized edema. Volume status is worsening again as we could not remove fluid for last 24 hours due to hypotension. We are going to try to remove 50 mL per hour as tolerated as long as his mean arterial pressure is above 65 mmHg. He is currently off pressors and his central venous pressure (CVP) is reported to be about 17. 4. Altered mentation. The patient remains unresponsive and a EEG was done which has been reviewed with the patient's family. Apparently he has significant brain dysfunction which has not recovered despite stopping all sedation. Family is meeting later today to discuss plan of future care. 5. Anemia and thrombocytopenia. There is no active bleeding and anemia is relatively stable. Platelets are essentially unchanged. 6. Ascites, pleural and pericardial effusions. The patient had infectious pericardial effusion for which he underwent a chest tube placement and drainage. He also has large amount of ascites and last paracentesis still showed elevated white cell count. He remains on broad-spectrum antibiotics. DISPOSITION: His prognosis remains guarded in view of multiorgan failure and significant brain dysfunction. He also has hepatocellular cancer which adds to his poor prognosis. Family is trying to make a decision about future care. Twenty-six minutes of critical care time spent on the bedside during which no procedures were performed.
[2018-04-21] VITALS (49 sets, daily range): BP systolic 79–104; BP diastolic 39–62; O2SAT 97–98
[2018-04-21] MEDS: IPRATROPIUM 0.5MG/ALBUTEROL 2.5MG INH SOL UD 3ML (DUONEB)(J7620) NEB SCH ×4 (00:04→12:04)
[2018-04-21] MEDS: METOCLOPRAMIDE INJ 10MG/2ML VIAL (J2765) IV SCH ×3 (00:42→12:45)
[2018-04-21] MEDS: HumaLOG INSULIN (NovoLOG) PER UNIT SC SCH ×3 (00:43→12:45)
[2018-04-21 00:56] LABS: HEMATOCRIT 32.8 % (42.0-52.0); HEMOGLOBIN 10.4 g/dl (13.5-17.5)
[2018-04-21] MEDS: HEPARIN 1,000 UNITS/ML 10ML VIAL (FOR RADIOLOGY& DIALYSIS ONLY) IV PRN (02:05)
[2018-04-21] MEDS: PIPERACILLIN/TAZOBACTAM SOD 3.375 GM in D5W MINI-BAG PLUS 50 ML IV SCH ×3 (02:06→14:05)
[2018-04-21 04:54] LABS: HEMATOCRIT 34.1 % (42.0-52.0); HEMOGLOBIN 10.7 g/dl (13.5-17.5); IONIZED CALCIUM 4.8 MG/DL (4.5-5.3); MEAN CORPUSCULAR HEMOGLOBIN 24.2 pg (27.0-33.0); MEAN CORPUSCULAR HGB CONC 31.4 g/dl (32.0-36.5); RED BLOOD COUNT 4.43 10^6/uL (4.30-6.10)
[2018-04-21] MEDS ORDERED: NS 1,000 ML IV ONE (05:00)
[2018-04-21] MEDS ORDERED: PANTOPRAZOLE 40MG INJ (PROTONIX) (C9113) IV ONE (05:00)
[2018-04-21] MEDS ORDERED: VASOPRESSIN INJ 20 UNITS in NS 499 ML IV SCH (05:00)
[2018-04-21] MEDS: LEVOTHYROXINE 100 MCG (0.1MG) VIAL IV SCH (05:03)
[2018-04-21] MEDS: SLF 3 ML SYR IV SCH ×2 (05:04→14:02)
[2018-04-21 05:10] LABS: INR 1.45; PROTHROMBIN TIME 17.9 SECONDS (12.1-14.4)
[2018-04-21] MEDS: SODIUM CHLORIDE 0.9% INJ 10 ML SYR IV SCH ×2 (05:10→14:02)
[2018-04-21 05:11] LABS: PARTIAL THROMBOPLASTIN TIME 41.7 SECONDS (25.4-37.6)
[2018-04-21 05:31] LABS: ABG BASE EXCESS -6.7 (-2.0-2.0); ABG HCO3 15.7 MEQ/L (22.0-26.0); ABG O2 SATURATION 99.6 % (95.0-99.0); ABG PARTIAL PRESSURE CO2 23.4 mmHg (35.0-45.0); ABG TOTAL CO2 16.4 MEQ/L (23.0-31.0); ABG pH (ARTERIAL) 7.445 UNITS (7.350-7.450)
[2018-04-21] MEDS: NOREPINEPHRINE BITARTRATE 16 MG in D5W 484 ML IV SCH ×10 (05:31→14:33)
[2018-04-21 05:56] LABS: PLATELET COUNT, AUTOMATED 53 10^3/uL (150-450); WHITE BLOOD COUNT 34.7 10^3/uL (4.0-10.0)
[2018-04-21 06:44] LABS: CALCIUM LEVEL 8.5 MG/DL (8.8-10.2); CREATININE FOR GFR 2.01 MG/DL (0.70-1.30); MAGNESIUM LEVEL 2.2 MG/DL (1.8-2.4); PHOSPHORUS LEVEL 4.5 MG/DL (2.5-4.9); POTASSIUM SERUM 4.1 MEQ/L (3.5-5.1); VANCOMYCIN RANDOM 20.8 UG/ML
[2018-04-21] MEDS: CHLORHEXIDINE GLUCONATE 0.12 % 15ML UDC (PERIDEX ORAL RINSE) MT SCH (08:24)
[2018-04-21] MEDS: VANCOMYCIN HCL 1,000 MG, VIAL MATE ADAPTER 1 EACH in D5W 250 ML IV SCH (08:24)
[2018-04-21] MEDS: MUPIROCIN 2% OINT 22 GM TUBE TOP SCH ×2 (08:25→14:02)
[2018-04-21] MEDS: SANTYL OINT 30GM TOP SCH (08:25)
[2018-04-21] MEDS ORDERED: PANTOPRAZOLE 40MG INJ (PROTONIX) (C9113) IV SCH ×2 (09:00→17:00)
[2018-04-21] MEDS: ASPIRIN 81 MG CHEW TABLET NG SCH (09:00)
[2018-04-21] MEDS ORDERED: EPINEPHrine 1MG/10ML SYRINGE 1.5IN XX STA (09:20)
[2018-04-21] MEDS ORDERED: fentaNYL 100 MCG/2 ML INJECTION (J3010) IV ONE (09:30)
[2018-04-21] MEDS ORDERED: MIDAZOLAM INJ 2 MG/2 ML VIAL (J2250) IV ONE (09:30)
[2018-04-21] MEDS: VANCOMYCIN HCL 500 MG in D5W MINI-BAG PLUS 100 ML IV SCH (10:21)
--- NOTE | 2018-04-21 10:30 | REP ---
Portable chest, 06:51 a.m., AP view, patient sitting: Comparison is 04/19/2018. The bibasilar infiltrates are unchanged. No definite pleural effusions are identified on the portable plain films today. Cardiac size is normal. The endotracheal tube tip is in satisfactory position at the level of the aortic arch, above the roselyn, unchanged. The right thoracotomy tube remains in satisfactory position, unchanged. The right IJ central venous catheter tip is in satisfactory location at the confluence of the superior vena cava and right atrium. Impression: No interval change. Electronically Signed by Garrett Argueta MD 04/21/2018 07:46 A
--- NOTE | 2018-04-21 10:31 | CCN ---
CRITICAL CARE NOTE DATE: 04/21/2018 Start time: 719 Stop time: 0077 I again attended Marshall Collado here in the intensive care unit. Patient has been examined and his chart is reviewed. Through the night he developed difficulties with hypotension and isaiah blood drainage from his OJ tube. Platelets have been ordered, but are currently being thawed. He remains with bloody drainage. He did get a liter of fluid put back, but now remains on 22 mcg of Levophed. Current blood pressure 97 systolic with a mean arterial blood pressure of 68. Heart rate in the 90s, respiratory rate 24 to 30s. T-max overnight 97. Most recent laboratories show white blood cell count of 34.7, hemoglobin 10.7, platelet count is 53,000 and platelets are pending. Sodium 137, potassium 4.1, chloride 103, CO2 20, BUN 31, creatinine 2.01. Blood gas done on PRVC range of 16, tidal volume 450, PEEP of 8, FiO2 of 30%. He has a pH of 7.445. PCO2 of 23.4 and pO2 of 178. Chest x-ray shows no new findings. Lines and tubes are in good position. Pericardial tubes have been removed. On exam, he is less responsive today. He does have corneals, but is not having his spontaneous movements he had yesterday. He has received minimal sedation. Sclera remain mildly icteric. Chest shows diminished, but symmetric expansion. Some crackles at the extreme bases. Cardiac exam is distant. Peripheral pulses remain diminished. Edema is unchanged. Abdomen is more distended today. Bowel sounds are diminished compared to yesterday. No obvious organomegaly or masses. I do believe there is ascites. Extremities show no significant change in his edema, discoloration of the right leg with his embolic phenomenon changes are again noted. Neurologically as outlined above. IMPRESSION: The most pressing problem requiring my immediate presence at the bedside: 1. Respiratory failure, chronic mechanical ventilatory support. 2. Respiratory alkalosis. 3. Sepsis with shock secondary to infected sternal wound seeding the pericardium. 4. Renal failure. 5. Encephalopathy. 6. Embolic phenomenon of the right lower extremity. 7. GI bleed. 8. Thrombocytopenia. At this point, he will likely have upper endoscopy by Dr. Valerio later this morning. He certainly is at risk for stress ulceration. We did double his Protonix. Given his elevated white count and his hypotension, I will recheck a lactate. He is already on broad-spectrum antimicrobials in the form of Zosyn and vancomycin. Without fevers, I would find it odd if this were secondary to a fungal infection, but if his current status continues to climb, I will consider adding an antifungal agent. Daughter has been made aware of his status by the nursing staff. I am told consideration is being given towards limiting his care, but I have not heard that definitively from them yet. At this point, we will continue his current level of support. In view of the events overnight, his prognosis is guarded at best and there is a very high likelihood he will not survive this hospitalization. I left the bedside at 0754 hours. 34 minutes critical care time at the bedside, not including procedures.
--- NOTE | 2018-04-21 12:43 | ROOPDOC ---
[facility] Report Of Operation Report of Operation DATE OF PROCEDURE: 04/21/18 PREPROCEDURE DIAGNOSES: Upper GI bleeding on the septic, critically ill patient who is intubated, known history of cirrhosis. POSTPROCEDURE DIAGNOSES: Upper GI bleeding not currently actively bleeding with mucosal blistering from mid esophagus to the distal esophagus/GE junction, with associated mucosal inflammation. No active bleeding from varices. Mild gastritis, moderate to denies at the second portion PROCEDURE: Upper GI endoscopy. SURGEON: Duy Valerio MD ANESTHESIA: Patient already intubated he was given 2 mg of Versed and 50 g of fentanyl for sedation.. ESTIMATED BLOOD LOSS: Approximately 5 mL. COMPLICATIONS: None patient remains in critical condition no addressable source of bleeding. REMARKS: Patient is a critically ill 73-year-old male with septic pericarditis. He remains intubated. Overnight he had decompensation. He was weaned off his vasopressor for the past 36 hours but overnight he started requiring vasopressor support. His OG tube which is being used for his feeding was also noted to have bloody drainage. PROCEDURE NOTE: From the midportion of the esophagus to the distal esophagus there are blistering circumferentially in the wall of the colon with contact bleeding. No deep ulcerations or erosions. Patient was documented in 2016 to have grade 2 esophageal varices. I could not verify its presence on the ingram of the esophagus though there is no active bleeding at the time of the procedure. There was some dried coagulated blood on the upper portion of the stomach most likely from the bleeding from the esophagus coming down to the stomach. Otherwise the stomach mucosa did not have much inflammation, gastritis, ulcerations. The duodenal bulb is healthy. The second portion of the duodenum past the papilla which I was able to visualize has mucosal thickening, swelling consistent with duodenitis but no ulcerations or active bleeding is noted. DESCRIPTION OF PROCEDURE: The procedure was performed in the ICU. Patient is intubated. He is on 20 g of norepinephrine per minute. He has an orogastric tube placed. Prior to the procedure I had the nurse instill 1 L of normal saline to the tube and after clamping for 5 minutes this was hoped back to suction with only a thin, pink serosanguineous fluid draining out of it and no gross bloody drainage noted. Consent was obtained from his who was at the bedside. He was positioned in a left lateral decubitus position with pillows supporting his back. He was given 2 mg of Versed IV and 50 g of fentanyl IV prior to the procedure. His pressure is maintained with systolic in the 90s throughout the procedure.We paused for a surgical timeout using both pre-incision safety checklist to verify correct patient, procedure site and additional clinical information prior to beginning the procedure. The Olympus video endoscope was inserted through the mouth and guided to the esophageal opening. At about the midportion of the esophagus I noted termination of blisters circumferentially in the wall. The blisters would decompress on contact and suction with a small amount of contact bleeding but otherwise no active bleeding is noted. The mucosa appears inflamed. I did not see any deep fissures, erosions or ulcerations that may be the cause of bleeding. He was documented to have esophageal ulcers on his last endoscopy in 2015. I did not see any evidence of bleeding esophageal varices. This was guided through to the stomach and up to the second portion of the duodenum. At the gastric cardia there were some coagulated dried blood adhered to the mucosa. The mucosa and Kelly itself appears normal. No severe gastritis noted. As few striped erythematous mucosa is noted in the antrum but is not bleeding or having any co ntact bleeding the end of the orogastric tube is at the upper portion of the body of the stomach. In the duodenum the duodenal bulb was noted to be healthy. The second portion of the duodenum has mucosal thickening, swelling. No active bleeding noted at this part. This findings appeared to be subacute in nature. No duodenal ulcerations noted. Endoscope was pulled back slowly to visualize the remainder of the mucosa in the stomach and esophagus. Patient remained stable throughout the procedure. We did not need to increase vasopressor support. The findings were communicated with Dr. Becker as well as to the family. Is not entirely clear to me what the etiology is of the blistering. Differentials would include infectious esophagitis, ischemic esophagitis. Patient is already on Protonix IV twice a day and broad-spectrum antibiotics support. DUY VALERIO MD Apr 21, 2018 12:43
[2018-04-21] MEDS: MORPHINE 4 MG/ML 1ML VIAL/SYRINGE (J2270) IV PRN (15:51)
[2018-04-21] MEDS ORDERED: MORPHINE 4 MG/ML 1ML VIAL/SYRINGE (J2270) IV PRN (16:30)
--- NOTE | 2018-04-21 17:52 | IPNPDOC ---
Subjective General Date/Time Seen The patient was seen on 04/21/18 at 09:00 am Subject Chief Complaint/History The patient is a 73-year-old male admitted with a reason for visit of Sepsis,Septic Shock. Patient deteriorated overnight and is back on the Levophed for pressure support. He was noted to have initially serosanguineous drainage from his orogastric tube and this became isaiah blood this morning. He is receiving platelet transfusion for thrombocytopenia. History of feedings have been held. Have spoken to the family at the bedside for doing upper gastrointestinal endoscopy. Current Medications Current Medications Current Medications Acetaminophen (Tylenol Tab) 650 mg Q4HP PRN PO MILD PAIN OR FEVER; Start 04/10/18 at 18:45; Status Cancel Albuterol/ Ipratropium (Duoneb (Ipr 0.5mg/Alb 2.5mg)) 3 ml RQ4H NEB Last administered on 04/21/18at 12:04; Start 04/12/18 at 00:00; Stop 04/21/18 at 16:16; Status DC Angiotensin II (Human) 2.5 mg/ Sodium Chloride 500 ml @ 23.2 mls/hr [id number] IV Last administered on 04/11/18at 13:15; Start 04/11/18 at 05:30; Stop 04/11/18 at 20:39; Status DC Aspirin (Aspirin Chewable) 81 mg DAILY NG Last administered on 04/20/18at 08:25; Start 04/15/18 at 09:00; Stop 04/21/18 at 16:16; Status DC Aspirin (Ecotrin) 81 mg DAILY PO Last administered on 04/14/18at 08:17; Start 04/11/18 at 09:00; Stop 04/15/18 at 08:29; Status DC Bacitracin (Bacitracin Oint) DAILYPRN PRN TOP REDNESS/IRRITATION; Start 04/18/18 at 16:30; Stop 04/18/18 at 16:30; Status DC Bisacodyl (Dulcolax Suppository) 10 mg DAILYPRN PRN [place] CONSTIPATION Last administered on 04/19/18at 12:33; Start 04/19/18 at 12:00; Stop 04/21/18 at 16:16; Status DC Calcium Gluconate 1000 mg/Dextrose 110 ml @ 110 mls/hr Q1H IV Last administered on 04/13/18at 13:45; Start 04/13/18 at 11:45; Stop 04/13/18 at 13:44; Status DC Calcium Gluconate 1000 mg/Dextrose 110 ml @ 110 mls/hr Q1H IV Last administered on 04/14/18at 13:11; Start 04/14/18 at 11:00; Stop 04/14/18 at 12:59; Status DC Calcium Gluconate 1000 mg/Sodium Chloride 110 ml @ 110 mls/hr 0000,0003 IV Last administered on 04/13/18at 23:57; Start 04/14/18 at 00:00; Stop 04/14/18 at 09:00; Status DC Calcium Gluconate 1000 mg/Sodium Chloride 110 ml @ 110 mls/hr 0000,2300 IV Last administered on 04/13/18at 00:11; Start 04/12/18 at 23:00; Stop 04/13/18 at 00:59; Status DC Calcium Gluconate 1000 mg/Sodium Chloride 110 ml @ 110 mls/hr 0530,0630 IV Last administered on 04/12/18at 06:40; Start 04/12/18 at 05:30; Stop 04/12/18 at 12:00; Status DC Calcium Gluconate 1000 mg/Sodium Chloride 110 ml @ 110 mls/hr Q1H IV Last administered on 04/11/18at 15:09; Start 04/11/18 at 12:00; Stop 04/11/18 at 13:59; Status DC Calcium Gluconate 1000 mg/Sodium Chloride 110 ml @ 110 mls/hr Q1H IV ; Start 04/11/18 at 20:00; Stop 04/11/18 at 20:00; Status DC Calcium Gluconate 1000 mg/Sodium Chloride 110 ml @ 110 mls/hr Q1H IV Last administered on 04/11/18at 21:51; Start 04/11/18 at 20:00; Stop 04/11/18 at 21:59; Status DC Chlorhexidine Gluconate (Peridex Oral Rinse) SWAB/BRUSH ORAL CAVITY BID MT Last administered on 04/21/18at 08:24; Start 04/11/18 at 09:00; Stop 04/21/18 at 16:16; Status DC Collagenase (Santyl) 1 dose DAILY TOP Last administered on 04/21/18at 08:25; Start 04/19/18 at 09:00; Stop 04/21/18 at 16:16; Status DC Dextrose (Dextrose 50%) 25 ml ASDIRECTED PRN IV SEE LABEL COMMENTS; Start 04/10/18 at 20:00; Status Cancel Diatrizoate Meglum/ Diatrizoate Sod (Gastrografin) 10 ml Q30M PO Last administered on 04/15/18at 11:16; Start 04/15/18 at 10:30; Stop 04/15/18 at 11:01; Status DC Enoxaparin Sodium (Lovenox) 40 mg DAILY SC ; Start 04/11/18 at 09:00; Status Cancel Epinephrine HCl (Adrenalin) 1 mg STAT STAT XX ; Start 04/21/18 at 09:20; Stop 04/21/18 at 16:16; Status DC Fat Emulsion Intravenous 500 ml @ 20 mls/hr ONCE@1800 IV Last administered on 04/15/18at 17:42; Start 04/15/18 at 18:00; Stop 04/16/18 at 17:59; Status DC Fat Emulsion Intravenous 500 ml @ 20 mls/hr ONCE@1800 IV Last administered on 04/16/18at 18:02; Start 04/16/18 at 18:00; Stop 04/17/18 at 17:59; Status DC Fat Emulsion Intravenous 500 ml @ 20 mls/hr ONCE@1800 IV Last administered on 04/17/18at 18:00; Start 04/17/18 at 18:00; Stop 04/18/18 at 17:59; Status DC Fat Emulsion Intravenous 500 ml @ 20 mls/hr ONCE@1800 IV Last administered on 04/18/18at 17:12; Start 04/18/18 at 18:00; Stop 04/19/18 at 17:59; Status DC Fat Emulsion Intravenous 500 ml @ 20 mls/hr ONCE@1800 IV Last administered on 04/19/18at 17:35; Start 04/19/18 at 18:00; Stop 04/20/18 at 17:59; Status DC Fat Emulsion Intravenous 500 ml @ 20 mls/hr ONCE@1800 IV ; Start 04/21/18 at 18:00; Stop 04/22/18 at 17:59; Status Cancel Fentanyl Citrate (Sublimaze) 25 mcg Q1HP PRN IV PAIN Last administered on 04/11/18at 15:43; Start 04/11/18 at 13:30; Stop 04/11/18 at 23:13; Status DC Glucagon (Glucagon) 1 mg ASDIRECTED PRN SC SEE LABEL COMMENTS; Start 04/10/18 at 20:00; Status Cancel Glucose (Glucose) 16 GM ASDIRECTED PRN PO SEE LABEL COMMENTS; Start 04/10/18 at 20:00; Status Cancel Heparin Sodium (Heparin Lock Flush 10units/ml) 10 units ASDIRECTED PRN IV SEE LABEL COMMENTS; Start 04/13/18 at 16:45; Status Cancel Heparin Sodium (Heparin Lock Flush 10units/ml) 10 units HLF IV Last administered on 04/21/18at 14:01; Start 04/13/18 at 22:00; Stop 04/21/18 at 16:16; Status DC Heparin Sodium (Heparin) ASDIRECTED PRN IV SEE LABEL COMMENTS Last administered on 04/21/18at 02:05; Start 04/11/18 at 09:30; Stop 04/21/18 at 16:16; Status DC Heparin Sodium (Heparin) ASDIRECTED PRN IV SEE LABEL COMMENTS; Start 04/18/18 at 12:30; Stop 04/19/18 at 10:46; Status DC Heparin Sodium (Porcine) (Heparin) 5,000 units Q8H SQ ; Start 04/12/18 at 06:00; Stop 04/12/18 at 06:00; Status DC Heparin Sodium (Porcine) 18394 units/IV Miscellaneous Supplies 250 ml @ 0 mls/hr Q0M IV Last administered on 04/11/18at 23:29; Start 04/11/18 at 22:46; Stop 04/13/18 at 12:32; Status DC Home Med (Med Rec Complete!) ASDIRECTED XX ; Start 04/10/18 at 18:30; Stop 04/10/18 at 18:30; Status DC Insulin Human Lispro (HumaLOG INSULIN) SEE PROTOCOL TABLE AC SC ; Start 04/11/18 at 07:30; Status Cancel Insulin Human Lispro (HumaLOG INSULIN) SEE PROTOCOL TABLE Q4H SC Last administered on 04/14/18at 08:17; Start 04/11/18 at 09:00; Stop 04/14/18 at 13:00; Status DC Insulin Human Lispro (HumaLOG INSULIN) SEE PROTOCOL TABLE Q6H SC Last administered on 04/21/18at 12:45; Start 04/14/18 at 12:00; Stop 04/21/18 at 16:16; Status DC Insulin Human Lispro (HumaLOG INSULIN) SEE PROTOCOL TABLE QHS SC ; Start 04/10/18 at 21:00; Stop 04/11/18 at 09:35; Status DC Insulin Human Lispro (HumaLOG INSULIN) See Protocol Table Q6H SC ; Start 03/29 10/14 at 18:00; Stop 04/15/18 at 18:00; Status DC Insulin Human Lispro (HumaLOG INSULIN) See Protocol Table Q6H SC ; Start 04/17/18 at 18:00; Stop 04/17/18 at 20:01; Status DC Levothyroxine Sodium (Synthroid) 100 mcg DAILY@0600 IV Last administered on 04/21/18at 05:03; Start 04/16/18 at 06:00; Stop 04/21/18 at 16:16; Status DC Levothyroxine Sodium (Synthroid) 137 mcg DAILY@0600 PO Last administered on 04/15/18at 05:21; Start 04/11/18 at 06:00; Stop 04/16/18 at 08:48; Status DC Metoclopramide HCl (REGLAN INJection) 10 mg Q6H IV Last administered on 04/21/18at 12:45; Start 04/17/18 at 06:00; Stop 04/21/18 at 16:16; Status DC Metoclopramide HCl (REGLAN INJection) 10 mg Q6HP PRN IV NAUSEA OR VOMITING Last administered on 04/11/18at 01:55; Start 04/11/18 at 01:00; Stop 04/11/18 at 23:13; Status DC Metoprolol Tartrate (Lopressor) 5 mg ASDIRECTED IV Last administered on 04/11/18at 02:42; Start 04/11/18 at 02:30; Stop 04/11/18 at 06:00; Status DC Midazolam HCl (Versed) 2 mg Q15MP PRN IV AGITATION Last administered on 04/13/18at 06:46; Start 04/11/18 at 23:15; Stop 04/13/18 at 12:32; Status DC Midazolam HCl (Versed) 4 mg STAT STAT IV Last administered on 04/11/18at 08:10; Start 04/11/18 at 08:08; Stop 04/11/18 at 08:09; Status DC Morphine Sulfate (Morphine Sulfate Inj) 2 mg Q15MP PRN IV DISCOMFORT Last administered on 04/21/18 16:28; Start 04/21/18 at 16:30 Morphine Sulfate (Morphine Sulfate Inj) 2 mg Q2HP PRN IV BREAKTHROUGH PAIN; Start 04/11/18 at 04:45; Stop 04/11/18 at 23:13; Status DC Morphine Sulfate (Morphine Sulfate Inj) 2 mg Q2HP PRN IV BREAKTHROUGH PAIN Last administered on 04/21/18at 15:51; Start 04/11/18 at 23:15 Morphine Sulfate (Morphine Sulfate Inj) 2 mg Q4HP PRN IV PAIN Last administered on 04/10/18at 23:40; Start 04/10/18 at 23:30; Stop 04/11/18 at 04:45; Status DC Mupirocin (Bactroban 2% Ointment) Apply bilateral nares QID TOP Last administered on 04/21/18at 14:02; Start 04/18/18 at 17:00; Stop 04/21/18 at 16:16; Status DC Nitroglycerin (Nitrostat (1/ 150)) 0.4 mg Q5MP PRN SL CHEST PAIN; Start 04/11/18 at 03:00; Status Cancel Nitroglycerin (Nitrostat (1/ 150)) 0.4 mg STAT STAT SL Last administered on 04/11/18at 02:24; Start 04/11/18 at 02:19; Stop 04/11/18 at 02:20; Status DC Nitroglycerin (Nitrostat (1/ 200)) 0.3 mg STAT STAT SL ; Start 04/11/18 at 02:13; Stop 04/11/18 at 02:20; Status DC Non-Formulary Medication (Heparin Iv Rate Change Documentation ml/ Hr) ASDIRECTED XX ; Start 04/11/18 at 23:00; Stop 04/13/18 at 12:32; Status DC Norepinephrine Bitartrate 16 mg/ Dextrose 500 ml @ 26 mls/hr [id number] IV Last administered on 04/21/18at 14:33; Start 04/21/18 at 08:30; Stop 04/21/18 at 16:15; Status DC Norepinephrine Bitartrate 16 mg/ Dextrose 500 ml @ 41 mls/hr [id number] IV Last administered on 04/21/18at 08:30; Start 04/12/18 at 18:00; Stop 04/21/18 at 09:12; Status DC Norepinephrine Bitartrate 16 mg/ Dextrose 500 ml @ 97.5 mls/hr Q5H8M IV Last administered on 04/12/18at 13:01; Start 04/11/18 at 21:00; Stop 04/12/18 at 17:59; Status DC Norepinephrine Bitartrate 8 mg/ Dextrose 500 ml @ 37.5 mls/hr [id number] IV Last administered on 04/10/18at 17:30; Start 04/10/18 at 17:30; Stop 04/10/18 at 23:08; Status DC Norepinephrine Bitartrate 8 mg/ Dextrose 500 ml @ 37.5 mls/hr [id number] IV Last administered on 04/11/18at 00:01; Start 04/11/18 at 00:00; Stop 04/11/18 at 17:05; Status DC Ondansetron HCl (ZOFRAN INJection) 4 mg Q4HP PRN IV NAUSEA OR VOMITING; Start 04/11/18 at 23:00; Status Cancel Ondansetron HCl (Zofran) 4 mg Q6HP PRN PO NAUSEA OR VOMITING Last administered on 04/10/18at 20:54; Start 04/10/18 at 18:45; Stop 04/11/18 at 23:13; Status DC Pantoprazole Sodium (Protonix) 40 mg BID IV ; Start 04/21/18 at 09:00; Stop 04/21/18 at 09:00; Status DC Pantoprazole Sodium (Protonix) 40 mg DAILY IV Last administered on 04/20/18at 08:25; Start 04/12/18 at 09:00; Stop 04/21/18 at 04:42; Status DC Pantoprazole Sodium (Protonix) 40 mg DAILY PO ; Start 04/11/18 at 09:00; Stop 04/11/18 at 23:13; Status DC Pantoprazole Sodium (Protonix) 40 mg Q12H IV ; Start 04/21/18 at 17:00; Status Cancel Piperacillin Sod/ Tazobactam Sod 3.375 gm/Dextrose 50 ml @ 50 mls/hr Q6H IV Last administered on 04/21/18at 14:05; Start 04/10/18 at 20:00 Potassium Chloride 20 meq/ IV Miscellaneous Supplies 100 ml @ 100 mls/hr 0200,2300 IV Last administered on 04/13/18at 23:58; Start 04/13/18 at 23:00; Stop 04/14/18 at 09:00; Status DC Potassium Chloride 20 meq/ IV Miscellaneous Supplies 100 ml @ 100 mls/hr Q1H IV Last administered on 04/13/18at 13:46; Start 04/13/18 at 13:00; Stop 04/13/18 at 14:59; Status DC Potassium Chloride 20 meq/ IV Miscellaneous Supplies 100 ml @ 100 mls/hr Q1H IV Last administered on 04/17/18at 23:24; Start 04/17/18 at 22:00; Stop 04/17/18 at 23:59; Status DC Propofol 1000 mg/ IV Miscellaneous Supplies 100 ml @ 5.79 mls/hr [id number] IV Last administered on 04/11/18at 18:51; Start 04/11/18 at 08:30; Stop 04/11/18 at 20:39; Status DC Propofol 1000 mg/ IV Miscellaneous Supplies 100 ml @ 5.79 mls/hr [id number] IV Last administered on 04/17/18at 01:17; Start 04/11/18 at 20:37; Stop 04/21/18 at 16:15; Status DC Sodium Bicarbonate 150 meq/Dextrose/Water 1,150 ml @ 120 mls/hr Q9H35M IV Last administered on 04/11/18at 22:32; Start 04/11/18 at 22:00; Stop 04/12/18 at 13:48; Status DC Sodium Bicarbonate 150 meq/Dextrose/Water 1,150 ml @ 120 mls/hr Q9H35M IV Last administered on 04/12/18at 13:58; Start 04/12/18 at 15:00; Stop 04/12/18 at 20:00; Status DC Sodium Bicarbonate 150 meq/Dextrose/Water 1,150 ml @ 150 mls/hr Q7H40M IV Last administered on 04/11/18at 14:53; Start 04/11/18 at 05:30; Stop 04/11/18 at 17:05; Status DC Sodium Bicarbonate 150 meq/Sodium Chloride 1,150 ml @ 120 mls/hr Q9H35M IV ; Start 04/11/18 at 04:15; Stop 04/11/18 at 05:22; Status DC Sodium Bicarbonate (Sodium Bicarbonate) 50 meq STAT STAT IV Last administered on 04/11/18at 08:10; Start 04/11/18 at 08:08; Stop 04/11/18 at 08:09; Status DC Sodium Bicarbonate (Sodium Bicarbonate) 100 meq STAT STAT IV Last administered on 04/11/18at 04:29; Start 04/11/18 at 04:06; Stop 04/11/18 at 04:07; Status DC Sodium Chloride 1,000 ml @ 90 mls/hr Q11H7M IV ; Start 04/11/18 at 03:15; Stop 04/11/18 at 04:25; Status DC Sodium Chloride 1,000 ml @ 120 mls/hr Q8H20M IV ; Start 04/11/18 at 00:30; Stop 04/11/18 at 02:35; Status DC Sodium Chloride (Saline Lock Flush) 2 ml ASDIRECTED PRN IV SEE LABEL COMMENTS Last administered on 04/17/18at 21:15; Start 04/13/18 at 16:45; Stop 04/21/18 at 16:16; Status DC Sodium Chloride (Saline Lock Flush) 2 ml SLF IV Last administered on 04/21/18at 14:02; Start 04/13/18 at 22:00; Stop 04/21/18 at 16:16; Status DC Sodium Chloride (Saline Lock Flush) 10 ml ASDIRECTED PRN IV SEE LABEL COMMENTS; Start 04/13/18 at 16:45; Status Cancel Sodium Chloride (Saline Lock Flush) 10 ml SLF IV Last administered on 04/21/18at 14:02; Start 04/13/18 at 22:00; Stop 04/21/18 at 16:16; Status DC Sodium Chloride (Saline Lock Flush) 10ML IN EACH NADEGE... ASDIRECTED PRN IV SEE LABEL COMMENTS; Start 04/11/18 at 09:30; Status Cancel Sodium Chloride (Saline Lock Flush) 10ML IN EACH NADEGE... ASDIRECTED PRN IV SEE LABEL COMMENTS; Start 04/18/18 at 12:30; Stop 04/19/18 at 10:46; Status DC Sodium Chloride 200 meq/Sodium Acetate 40 meq/ Potassium Chloride 20 meq/ Potassium Phosphate 40 mmol/ Magnesium Sulfate 4.76 meq/Calcium Gluconate 2381 mg/ Multivitamins 10 ml/Chromium/ Copper/Manganese/ Seleni/Zn 1 ml/ Insulin Human Regular 11.9 units/Amino Acids/ Dextrose 2,129.4523 ml @ 70 mls/hr ONCE@1800 IV Last administered on 04/15/18at 17:42; Start 04/15/18 at 18:00; Stop 04/16/18 at 17:59; Status DC Sodium Chloride 220 meq/Sodium Acetate 40 meq/ Potassium Chloride 20 meq/ Potassium Phosphate 27 mmol/ Magnesium Sulfate 9.5 meq/Calcium Gluconate 2380 mg/ Insulin Human Regular 19 units/ Amino Acids/ Dextrose 2,120.365 ml @ 70 mls/hr ONCE@1800 IV Last administered on 04/16/18at 18:03; Start 04/16/18 at 18:00; Stop 04/17/18 at 17:59; Status DC Sodium Chloride 220 meq/Sodium Acetate 40 meq/ Potassium Chloride 20 meq/ Potassium Phosphate 40 mmol/ Magnesium Sulfate 9.5 meq/Calcium Gluconate 2380 mg/ Multivitamins 10 ml/Chromium/ Copper/Manganese/ Seleni/Zn 1 ml/ Insulin Human Regular 23.8 units/Amino Acids/ Dextrose 2,135.7463 ml @ 70 mls/hr ONCE@1800 IV Last administered on 04/17/18at 18:11; Start 04/17/18 at 18:00; Stop 04/18/18 at 17:59; Status DC Sodium Chloride 240 meq/Sodium Acetate 20 meq/ Potassium Chloride 20 meq/ Potassium Phosphate 27 mmol/ Magnesium Sulfate 9.5 meq/Calcium Gluconate 2380 mg/ Multivitamins 10 ml/Chromium/ Copper/Manganese/ Seleni/Zn 1 ml/ Insulin Human Regular 29 units/ Amino Acids/ Dextrose 2,126.465 ml @ 70 mls/hr ONCE@1800 IV Last administered on 04/19/18at 17:35; Start 04/19/18 at 18:00; Stop 04/20/18 at 17:59; Status DC Sodium Chloride 240 meq/Sodium Acetate 20 meq/ Potassium Chloride 20 meq/ Potassium Phosphate 40 mmol/ Magnesium Sulfate 9.5 meq/Calcium Gluconate 2380 mg/ Insulin Human Regular 28.6 units/Amino Acids/ Dextrose 2,119.7943 ml @ 70 mls/hr ONCE@1800 IV Last administered on 04/18/18at 17:12; Start 04/18/18 at 18:00; Stop 04/19/18 at 17:59; Status DC Sodium Chloride 240 meq/Sodium Acetate 30 meq/ Potassium Chloride 20 meq/ Potassium Phosphate 27 mmol/ Magnesium Sulfate 9.5 meq/Calcium Gluconate 2381 mg/ Insulin Human Regular 36 units/ Amino Acids/ Dextrose 2,120.545 ml @ 70 mls/hr ONCE@1800 IV ; Start 04/21/18 at 18:00; Stop 04/22/18 at 17:59; Status Cancel Sodium Phosphate 30 mmol/Dextrose 260 ml @ 130 mls/hr 0100 IV Last administered on 04/14/18at 02:22; Start 04/14/18 at 01:00; Stop 04/14/18 at 09:00; Status DC Vancomycin HCl 500 mg/Dextrose 110 ml @ 110 mls/hr Q24H IV Last administered on 04/16/18at 11:02; Start 04/12/18 at 10:00; Stop 04/17/18 at 09:22; Status DC Vancomycin HCl 500 mg/Dextrose 110 ml @ 110 mls/hr Q24H IV Last administered on 04/21/18at 10:21; Start 04/19/18 at 10:00; Stop 04/21/18 at 16:15; Status DC Vancomycin HCl 750 mg/IV Miscellaneous Supplies 1 each/ Dextrose 275 ml @ 275 mls/hr Q8H IV ; Start 04/10/18 at 19:45; Stop 04/10/18 at 20:23; Status DC Vancomycin HCl 1000 mg/IV Miscellaneous Supplies 1 each/ Dextrose 270 ml @ 270 mls/hr Q12H IV ; Start 04/11/18 at 06:00; Stop 04/11/18 at 10:11; Status DC Vancomycin HCl 1000 mg/IV Miscellaneous Supplies 1 each/ Dextrose 270 ml @ 270 mls/hr Q24H IV Last administered on 04/11/18at 18:02; Start 04/11/18 at 18:00; Stop 04/12/18 at 08:49; Status DC Vancomycin HCl 1000 mg/IV Miscellaneous Supplies 1 each/ Dextrose 270 ml @ 270 mls/hr Q24H IV Last administered on 04/21/18at 08:24; Start 04/12/18 at 09:00; Status Future hold Vasopressin 20 units/Sodium Chloride 500 ml @ 60 mls/hr Q8H20M IV ; Start 04/21/18 at 05:00; Stop 04/21/18 at 16:15; Status DC Allergies Coded Allergies: Insulin Detemir (Verified Allergy, Mild, RASH , ITCHING, 10/23/17) Phenol (Verified Allergy, Mild, RASH , ITCHING, 10/23/17) Objective Physical Examination Examination GENERAL APPEARANCE: Patient is intubated, ill-appearing. SKIN: Jaundiced. HEENT: Intubated, no spontaneous eye opening. OG tube in place with clear isaiah bloody drainage. Nonclotting blood. LUNGS: Mild scattered rales, no wheezing. HEART: No chest wall abnormalities. Distant heart sounds, Regular rate and rhythm. ABDOMEN: Abdomen is mildly distended, soft, hypoactive bowel sounds.. EXTREMITIES: Pale extremities, mild edema. Vital Signs Vital Signs Date Time Temp Pulse Resp B/P (MAP) Pulse Ox O2 Delivery O2 Flow Rate FiO2 04/21/18 15:00 127 30 89/49 (62) 98 30 04/21/18 12:00 96.0 04/21/18 03:58 Ventilator I&Os I&O- Last 24 Hours up to 6 AM0 04/21/18 05:59 Intake Total 3505.3 ml Output Total 4097 ml Balance -591.7 ml Laboratory Data Labs 24H Laboratory Tests 2 04/20/18 17:50: Nucleated Red Blood Cells % (auto) 0.8H, Anion Gap 13, Glomerular Filtration Rate 31.9L, Blood Urea Nitrogen 33H, Creatinine 2.18H, Sodium Level 137, Potassium Level 3.7, Chloride Level 103, Carbon Dioxide Level 21, Calcium Level 8.7L, Whole Blood Ionized Calcium 5.0, Phosphorus Level 3.3, Magnesium Level 2.1 04/21/18 00:35: Bedside Glucose (Misc Panel) 157H 04/21/18 04:44: Nucleated Red Blood Cells % (auto) 1.2H, Anion Gap 14, Glomerular Filtration Rate 35.0L, Blood Urea Nitrogen 31H, Creatinine 2.01H, Sodium Level 137, Potassium Level 4.1, Chloride Level 103, Carbon Dioxide Level 20L, Calcium Level 8.5L, Whole Blood Ionized Calcium 4.8, Phosphorus Level 4.5#, Magnesium Level 2.2, Prothrombin Time 17.9H, Prothromb Time International Ratio 1.45, Activated Partial Thromboplast Time 41.7H, Random Vancomycin Level 20.8 04/21/18 05:15: Blood Gas Bicarbonate Standard 19.0L, Arterial Blood pH 7.445, Arterial Blood Partial Pressure CO2 23.4L, Arterial Blood Partial Pressure O2 178.0H, Arterial Blood Total CO2 16.4L, Arterial Blood HCO3 15.7L, Arterial Blood Base Excess - 6.7L, Arterial Blood Oxygen Saturation 99.6H 04/21/18 06:40: Bedside Glucose (Misc Panel) 95 04/21/18 12:39: Bedside Glucose (Misc Panel) 149H CBC/BMP Laboratory Tests 04/20/18 17:50 Red Blood Count 4.07 L, Mean Corpuscular Volume 77.1 L, Mean Corpuscular Hemoglobin 24.6 L, Mean Corpuscular Hemoglobin Concent 31.8 L, Red Cell Distribution Width 20.1 H, Calcium Level 8.7 L 04/21/18 00:45 04/21/18 04:44 Red Blood Count 4.43, Mean Corpuscular Volume 77.0 L, Mean Corpuscular Hemoglobin 24.2 L, Mean Corpuscular Hemoglobin Concent 31.4 L, Red Cell Distribu tion Width 20.7 H, Calcium Level 8.5 L Microbiology Microbiology 04/16/18 Acid Fast Stain, Received Pending 04/16/18 Mycobacterial Culture, Received Pending 04/16/18 Fungal Smear, Received Pending 04/16/18 Fungal Culture, Received Pending 04/16/18 Gram Stain - Final, Complete 04/16/18 Body Fluid Culture - Final, Complete 04/16/18 Anaerobic Culture - Final, Complete 04/16/18 Acid Fast Stain, Received Pending 04/16/18 Mycobacterial Culture, Received Pending 04/16/18 Fungal Smear, Received Pending 04/16/18 Fungal Culture, Received Pending 04/16/18 Gram Stain - Final, Complete 04/16/18 Body Fluid Culture - Final, Complete 04/12/18 Gram Stain - Final, Complete 04/12/18 Body Fluid Culture - Final, Complete 04/12/18 Acid Fast Stain, Received Pending 04/12/18 Mycobacterial Culture, Received Pending 04/12/18 Fungal Smear, Received Pending 04/12/18 Fungal Culture, Received Pending 04/12/18 Gram Stain - Final, Complete 04/12/18 Body Fluid Culture - Final, Complete Strep Dysgalactiae Sp Equisim 04/12/18 Anaerobic Culture - Final, Complete 04/11/18 Gram Stain - Final, Complete 04/11/18 Body Fluid Culture - Final, Complete Escherichia Coli Strep Dysgalactiae Sp Equisim 04/11/18 Acid Fast Stain, Received Pending 04/11/18 Mycobacterial Culture, Received Pending 04/11/18 MRSA Screen - Final, Complete Staph.aureus Methicillin Resis 04/11/18 Gram Stain - Final, Complete 04/11/18 Wound Culture - Final, Complete Staph.aureus Methicillin Resis Strep Agalactiae Group B Impression Sepsis with hypotension Pericarditis Upper GI bleeding Hepatocellular carcinoma Cirrhosis On review of his medical records he did have an upper endoscopy done in 2016 that shows 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 On talking to his family he was apparently diagnosed with hepatocellular cancer recently only was admitted for his CABG following an SC. He has had some chronic thrombocytopenia which seems to have worsened. He has so far received platelets. His hemoglobin and hematocrit surprisingly remained stable with only a small drop. He does have bloody drainage from his orogastric tube. I had instructed the nurse to lavage the tube with 1 L normal saline and I'm not getting much blood. Have discussed with the family the plan for performing upper GI endoscopy and circumstances where we can address the bleeding such as with bleeding varices, bleeding ulcers. Given his septic state, intubated state, more likely that this is from s evere acute gastritis. Consent was obtained from his who was at the bedside. We'll proceed with upper endoscopy and further recommendations depending on findings on endoscopy. Plan / VTE VTE Prophylaxis Ordered?: No VTE Exclusion Pharmacological: Hemorrhage Plan / Urinary Catheter Reason for insertion/continuin: Critical Pt monitoring DUY CASTAÑEDA MD Apr 21, 2018 17:52
[2018-04-21] MEDS ORDERED: FAT EMULSION IV 20% 500 ML IV SCH (18:00)
[2018-04-21] MEDS ORDERED: SODIUM CHLORIDE IV SCH ×8 (18:00)
[2018-04-21] MEDS ORDERED: SODIUM ACETATE IV SCH ×8 (18:00)
[2018-04-21] MEDS ORDERED: [UNRECOGNIZED DRUG - OTHER] IV SCH ×8 (18:00)
--- NOTE | 2018-04-22 08:16 | IPN ---
DATE OF SERVICE: 04/21/2018 Mr. Collado seen in ICU on his bedside this morning. He took another turn for worse through the night and required Levophed again. Yesterday he was off Levophed and maintaining his blood pressure. Through the night, I received a few phone call from nursing staff due to worsening hypotension and requirement for Levophed. We stopped removing any fluid with CRRT. He was placed on Levophed and also given a fluid bolus of normal saline 1 liter. This morning, he is on about 20 mcg of Levophed. He did not tolerate tube feeding anymore and he had an upper endoscopy done by Dr. Valerio who reported that the patient has blisters in his esophagus and stomach, some of them are filled with serous fluid and some are filled with blood. He felt that this is related to his staph sepsis. In any event, the patient remains on the ventilator and CRRT. He has minimal urine output. His abdominal distension has worsened significantly and tube feeding have already been stopped. PHYSICAL EXAMINATION: Temperature 96 degrees Fahrenheit, heart rate about 100 per minute and respiratory rate 32 per minute on the ventilator. Blood pressure 94/62 mmHg and oxygen saturation 908%. His head is atraumatic. Neck is supple and JVD seems prominent. He has a central line in right internal jugular vein. Heart: Sounds are regular and tachycardiac. Lungs with moderate bilateral air entry. Abdomen is markedly distended and chest tube in the right side is present. Bowel sounds are not audible. Extremities: Have no cyanosis or clubbing. He has increasing peripheral edema all over his body, particularly on lower extremities. Neurologically he remains unresponsive and not even moving his upper extremities today. Today's labs show WBC count 34.7, his hemoglobin 10.7 and hematocrit 34.1. Platelets 53,000. Sodium 137, potassium 4.1, CO2 20, BUN 31 and creatinine 2.01. Glucose 96 and calcium 8.5. The vancomycin level was 20.8 this morning. PROBLEMS: 1. Septic shock. The patient has worsening condition once again and is requiring high dose of Levophed. He also received 1 liter of normal saline bolus through the night and we have stopped removing any fluid with CRRT. His white cell count also went up. This is despite appropriate antibiotics for the last 12 days that he has not to come out of his septic shock. 2. Oliguric acute renal failure. No significant change and he remains oliguric and dialysis dependent. He is on CRRT and his CRRT orders are being renewed. His electrolytes are within normal range and no significant metabolic acidosis at present. 3. Nutrition. He has not tolerated tube feeding and the description of his upper endoscopy has suggested that he is not likely to tolerate tube feeding. We will go ahead and resume TPN which was stopped yesterday. 4. Respiratory failure. The patient remains on the ventilator and no significant change in his respiratory status. However, his volume status seems to be worsening. We are unable to remove fluid with CRRT due to worsening hypotension and requiring higher dose of Levophed. 5. DO NOT RESUSCITATE. I discussed with the patient's family including his and daughter on the bedside about his prognosis and worsening condition. I explained in all detail and answered all their questions. The patient's family did consent for DO NOT RESUSCITATE and will also think for withdrawal of care as they do not want to see him suffering anymore. DO NOT RESUSCITATE orders are being issued. The patient's family will let us know when they decide about withdrawal of ventilator and other supportive care like CRRT and pressors. 42 minutes of critical care time spent on the bedside and with the patient's family. No procedures were performed during this time. PAULINO
--- NOTE | 2018-04-22 10:46 | DSES ---
DATE OF ADMISSION: 04/10/2018 DATE OF : 04/21/2018 at 1735 hours ADMITTING DIAGNOSIS: Sepsis with shock. SECONDARY DIAGNOSES: 1. Infected sternum. 2. Pericarditis/septic pericardium. 3. Coronary artery disease. 4. Hepatocellular carcinoma. 5. Renal failure. 6. Non insulin dependent diabetes mellitus. 7. Hypothyroidism. 8. Psoriasis. 9. History of esophageal varices. PROCEDURES: Please refer to the hospital record. HISTORY: This is a 73-year-old gentleman brought to the emergency room (ER) complaining of lightheadedness, dizziness and shortness of breath. He recently had a coronary artery bypass grafting at a hospital in [place] and was brought here feeling ill. Physical examination at the time of admission showed a gentleman who appeared his stated age, ill appearing. He had a fever of 101.2 in the ER, respiratory rate 22, blood pressure in the 70s, pulse oximetry 96% in room air. He clearly was in distress and short of breath. HEENT: Normocephalic, atraumatic. Pupils reactive. Neck was reasonably supple. Cardiac exam showed distant tones, tachycardic rate, with pitting edema. Chest showed decreased breath sound intensity throughout, but no focal adventitious breath sounds. Abdomen was soft with active bowel sounds. Extremities showed no cyanosis or clubbing, but did have diffuse edema. HOSPITAL COURSE: He was moved to the intensive care unit and volume resuscitated. He required placement of a central catheter and placed on Levophed. He was found to have positive enzymes and was quite acidotic. He was seen by the critical care team. There was concern over infection of the sternum and he was found to have a significant pericardial effusion. Given decline in his status, he was intubated and sedated. Stat echocardiogram confirmed tamponade type physiology. He was then seen by cardiothoracic surgery. A catheter was placed for drainage. He also had drainage of his right sided pleural effusion. Given the overall decline in his status and worsening renal indices, he was also placed on continuous renal replacement therapy (CRRT). He required multiple vasopressors as well as broad spectrum antimicrobials. Cultures during his hospitalization grew Streptococcus dysgalactiae, both from his blood cultures as well as from his pericardial fluid and from the leg wound from his graft. He grew methicillin-resistant Staphylococcus aureus (MRSA) from his nasopharynx. The pericardial fluid also grew E. Coli. Over the ensuing week or so, there was some ability to remove fluid and he was able to wean somewhat from his pressors. However, his mental status never did improve. Worsening of his hemodynamic parameters required return of vasopressors. With that, he also had a decline in his mental status. Given that, his family initially made him DO NOT RESUSCITATE (DNR). He then had continued decline and the family at that point chose to purse comfort measures care and withdrawal of support. The patient at 1735 hours on 04/21/2018. For more information, please refer to the electronic record regarding multiple consultations and procedures.
== END 2018-04-21 20:41 | disposition expired | DRG 856 ==
LOC: M ED 14:49 → M ED INP 18:40 → M ICU 19:41
PROVIDERS: ADMIT Internal Medicine; ATTEND Internal Medicine Pulmonary Disease
PROC: 06HM33Z Insertion of Infusion Device into Right Femoral Vein, Percutaneous Approach (ICD-10-PCS; 2018-04-11)
PROC: 0W9D30Z Drainage of Pericardial Cavity with Drainage Device, Percutaneous Approach (ICD-10-PCS; 2018-04-11)
PROC: 5A1955Z Respiratory Ventilation, Greater than 96 Consecutive Hours (ICD-10-PCS; 2018-04-11)
PROC: 30233K1 Transfusion of Nonautologous Frozen Plasma into Peripheral Vein, Percutaneous Approach (ICD-10-PCS; 2018-04-12)
PROC: 0W9D00Z Drainage of Pericardial Cavity with Drainage Device, Open Approach (ICD-10-PCS; principal; 2018-04-12 13:12)
PROC: 0W9930Z Drainage of Right Pleural Cavity with Drainage Device, Percutaneous Approach (ICD-10-PCS; 2018-04-16)
PROC: 0W9G3ZX Drainage of Peritoneal Cavity, Percutaneous Approach, Diagnostic (ICD-10-PCS; 2018-04-16)
PROC: 30233R1 Transfusion of Nonautologous Platelets into Peripheral Vein, Percutaneous Approach (ICD-10-PCS; 2018-04-16)
DX: T81.49XA Infection following a procedure, other surgical site, initial encounter (principal); A40.8 Other streptococcal sepsis; R65.21 Severe sepsis with septic shock; K72.00 Acute and subacute hepatic failure without coma; J96.00 Acute respiratory failure, unspecified whether with hypoxia or hypercapnia; J98.51 Mediastinitis; E87.2 Acidosis; I85.00 Esophageal varices without bleeding; C22.9 Malignant neoplasm of liver, not specified as primary or secondary; I24.8 Other forms of acute ischemic heart disease; N17.9 Acute kidney failure, unspecified; I31.4 Cardiac tamponade; I30.1 Infective pericarditis; R18.8 Other ascites; T82.868A Thrombosis due to vascular prosthetic devices, implants and grafts, initial encounter; D68.4 Acquired coagulation factor deficiency; J90 Pleural effusion, not elsewhere classified; K56.7 Ileus, unspecified; I96 Gangrene, not elsewhere classified; K92.2 Gastrointestinal hemorrhage, unspecified; G93.40 Encephalopathy, unspecified; K74.60 Unspecified cirrhosis of liver; E03.9 Hypothyroidism, unspecified; E11.9 Type 2 diabetes mellitus without complications; L40.8 Other psoriasis; Z66 Do not resuscitate; I25.2 Old myocardial infarction; K21.9 Gastro-esophageal reflux disease without esophagitis; E78.5 Hyperlipidemia, unspecified; Z79.82 Long term (current) use of aspirin; Z79.899 Other long term (current) drug therapy; Z79.4 Long term (current) use of insulin; B96.29 Other Escherichia coli [E. coli] as the cause of diseases classified elsewhere; D69.6 Thrombocytopenia, unspecified; D64.9 Anemia, unspecified